=== PATIENT | female | born 1975 | race Caucasian/White ===

== ENCOUNTER → 2022-03-29 10:32 | Outpatient (BNVA) | payer OTHER, SELFPAY | PROVIDERS: PCP Internal Medicine; Visit Provider Internal Medicine | DX: R07.2 Precordial pain (principal); R00.0 Tachycardia, unspecified; E11.8 Type 2 diabetes mellitus with unspecified complications; U09.9 Post COVID-19 condition, unspecified | CPT/HCPCS: 93005 ==

== ENCOUNTER → 2022-05-30 08:21 | Outpatient (REF) | payer OTHER, SELFPAY ==
--- NOTE | 2022-05-30 08:38 | HM_ITS ---
Conclusion: 1. Patient was monitored for total period of 3 days and 2 hours 2. Baseline was normal sinus rhythm with average heart of 99 beats per minute with frequent sinus tachycardia, 45% of time heart rate greater than 100 beats per minute 3. No significant bradycardia or pauses noted 4. Total of 6859 PACs accounting for 1.54% of total beats account for frequent PACs 5. No patient reported events MTDD
--- NOTE | 2022-05-30 08:38 | CA_ITS ---
Transthoracic Echocardiogram Patient (Last, First, Middle): Micaela Velazquez, Gender: Female Date of : 1975 Age: 46 Procedure Date: 05/30/2022 Procedure Type: Transthoracic Echocardiogram Location: OP Height: 157.48 cm Weight: 83.92 kg BSA: 1.85 m2 Heart Rate: bpm BP: 122 / 68 mmHg Technical Marketing Engineer: Referring MD: Juwan Garsia MD Symptoms: I25.10 - Atherosclerotic heart disease of [place] coronary... Study Quality: Fair ECG Rhythm: Sinus Conclusions: - The left ventricular systolic function is normal. The calculated ejection fraction is 66% by biplane method. - No obvious valvular pathology seen on this study. Findings Left Ventricle Normal left ventricular cavity size. There is normal left ventricular wall thickness. The left ventricular systolic function is normal. The calculated ejection fraction is 66% by biplane method. There is no evidence of regional wall motion abnormalities. Diastolic function is normal for age. Right Ventricle Normal right ventricular cavity size and systolic function. Atria Both atria are normal in size. Aortic Valve The aortic valve was not well visualized. There is no aortic valve stenosis. There is no aortic valve regurgitation. Mitral Valve The mitral valve appears normal. There is trace mitral valve regurgitation. There is no mitral valve stenosis. Pulmonic Valve The pulmonic valve is likely normal. There is trace pulmonic valve regurgitation. Tricuspid Valve Normal tricuspid valve structure. There is trace tricuspid valve regurgitation. The pulmonary artery systolic pressure is normal. Great Vessels The aortic annulus, sinuses of valsalva, and asc aorta are normal in size. Venous The inferior vena cava is normal in size and collapses greater than 50% with inspiration. Pericardium/Pleural There is no evidence of pericardial effusion. Prior Study Comparison No prior study available for comparison. Recommendations, Care & Conclusions No obvious valvular pathology seen on this study. Measurements 2D Linear Measurements IVSd: 0.99 0.6-0.9/0.6-1.0 cm LVIDd: 4.11 3.9-5.3/4.2-5.9 cm LVIDd Index: 2.22 2.4-3.2/2.2-3.1 cm/m2 LVIDs: 2.61 2.0-3.6 cm LVPWd: 0.97 0.7-1.1 cm Ao Root: 2.60 2.1-3.5 cm LA Diam: 3.10 2.7-3.8/3.0-4.0 cm LAIDs Index: 1.68 1.5-2.3 cm/m2 LV Mass: 160.62 67-162/88-224 g LV Mass Index: 86.82 43-95/49-115 g/m2 LVOT Diam: 1.90 3.0+(-)1.3 cm 2D Systolic Function EF 4C: 67.20 >55% EF 2C: 64.80 >55% EF BiP: 65.90 >55% Mitral Valve MV Pk E: 0.93 MV PK A: 0.77 MV Decel Time: 184.00 E/A: 1.20 E'Lateral: 12.40 E'Medial: 7.94 E/E' Med: 11.70 E/E' Lat: 7.50 PHT: 54.00 MVA PHT: 4.07 Decel Mcleod: 5.05 Aortic Valve AoV Pk Junaid: 1.38 AoV Mn Junaid: 1.00 AoV VTI: 0.32 AoV Pk Grad: 8.00 Aov Mn Grad: 4.00 ISA Cont.VTI: 1.82 LVOT LVOT Pk Junaid: 0.84 LVOT Mn Junaid: 0.55 LVOT VTI: 0.21 LVOT Pk Grad: 3.00 LVOT Mn Grad: 1.00 LVOT Diam: 1.90 LVOT Area: 2.84 Diastolic Function MV Pk E: 0.93 MV Pk A: 0.77 E/A: 1.20 E'Medial: 7.94 E/E' Med: 11.70 E' Laterial: 12.40 E/E' Lat: 7.50 Right Ventricle TAPSE (mm): 22.00 TVS' Junaid: 11.00 Tricuspid Valve TR Pk Junaid: 1.87 TR Pk Grad: 14.00 RA Press: 3.00 RVSP: 17.00 Great Vessels Aorta Ao Root-2D: 2.60 2.0-3.7 cm Ao Asc: 2.80 2.1-3.4 cm Pulmonary Valve PV Pk Junaid: 0.94 Peak PV Grad: 4.00 Updated in Other Vendor System with Status of Final Juwan Garsia MD electronically signed on 06/01/2022 10:42:51 AM with status of Final
== END ==
LOC: HO.CARD 08:21
PROVIDERS: Visit Provider Internal Medicine
DX: R07.2 Precordial pain (principal); R00.2 Palpitations; R00.0 Tachycardia, unspecified; I25.10 Atherosclerotic heart disease of native coronary artery without angina pectoris
CPT/HCPCS: 93242; 93306

== ENCOUNTER 2023-10-25 17:10 | Emergency (ER) | payer OTHER, SELFPAY ==
--- NOTE | ~2023-10-25 | XR_ITS ---
EXAMINATION: XR CHEST CLINICAL INFORMATION: Chest pain COMPARISON: None available. TECHNIQUE: 2 views of the chest were obtained. FINDINGS: No significant abnormality is noted involving the heart, lungs, mediastinum, bony thorax or soft tissues. XR/XR chest 2V IMPRESSION: Unremarkable examination.
--- NOTE | ~2023-10-25 | CT_ITS ---
EXAMINATION: CT ANGIOGRAM OF THE CHEST WITH AND WITHOUT CONTRAST (CT PULMONARY ANGIOGRAM FOR PE) CLINICAL INFORMATION: Reason for Exam cp elevated d dimer 453 COMPARISON: None available. TECHNIQUE: Prior to contrast administration, noncontrast localization images were obtained. Subsequently, multidetector volumetric imaging was performed from the thoracic inlet to below the diaphragms following the administration of 80 mL Omnipaque 350 intravenous contrast. No contrast reaction reported Sagittal, coronal, and MIP oblique sagittal reformatted images were obtained on the CT workstation, uploaded to PACS, and reviewed. This CT examination was performed using dose optimization techniques as appropriate, variously including the following: *Automated exposure control *Adjustment of mA and/or kV according to patient size (this includes techniques or standardized protocols for targeted exams where dose is matched to indication/reason for exam; i.e. extremities or head) *Use of iterative reconstruction technique Total exam dose-length product 259 mGy-cm FINDINGS: QUALITY OF STUDY/CONTRAST BOLUS: Satisfactory. PULMONARY ARTERIES: No pulmonary emboli. THORACIC AORTA: No aneurysm. LUNG: The lungs are well-expanded and clear. There is a 4 mm calcification left lower lobe. PLEURA: No pleural effusion or pneumothorax. MEDIASTINUM: Normal heart size. No pericardial effusion. No hilar or mediastinal lymphadenopathy. No evidence of septal bowing or right heart strain. CORONARY ARTERY CALCIFICATION: None visualized on this study. CHEST WALL/AXILLA: No axillary or internal mammary lymphadenopathy. OSSEOUS STRUCTURES: No acute or suspicious osseous abnormality. UPPER ABDOMEN: Unremarkable. No reflux of contrast into the hepatic veins to suggest elevated right heart pressures. CT/CT angio chest PE protocol IMPRESSION: No evidence of PE. No evidence of aortic aneurysm or dissection. VTE: Negative
--- NOTE | 2023-10-25 17:13 | ECG_ITS ---
Test Reason : CHEST PAIN Blood Pressure : / mmHG Vent. Rate : 079 BPM Atrial Rate : 079 BPM P-R Int : 104 ms QRS Dur : 066 ms QT Int : 356 ms P-R-T Axes : 059 026 042 degrees QTc Int : 408 ms Sinus rhythm with short CA with Premature atrial complexes Otherwise normal ECG No previous ECGs available Referred By: Keyanna Henderson Electronically Signed By:MARIA D MOLINA MD
[2023-10-25 17:21] VITALS: BP 127/72; PULSE 81; RESP 16; TEMP 36.8; O2SAT 98; BMI 30.9
--- NOTE | 2023-10-25 17:33 | MHC.EDTECH ---
Patient ekg taken and was read by Provider ,blood drawn and rsv/covid swab collected and sent to lab.
[2023-10-25 17:34] LABS: MANUAL DIFF FLAG NO
--- NOTE | 2023-10-25 17:39 | ED_ITS ---
HPI - Chest Pain General Chief Complaint: Chest Pain Stated Complaint: Chest pain Time Seen by Provider: 10/25/23 20:52 Source: patient Mode of arrival: ambulatory Limitations: no limitations History of Present Illness HPI narrative: Patient 47 years old with history of palpitations, diabetes frequent chest pain since COVID 09/23 comes here for 3 days of chest pain with left arm pain shortness of breath on exertion, feel like left arm pain is like having tourniquet on arm chest pain is tight stabbing pain and also having left jaw pain Related Data Home Medications Medication Instructions Recorded Confirmed cyclobenzaprine 10 mg tablet 10 mg PO TID PRN muscle spasm 03/29/22 07/03/22 metformin 750 mg tablet,extended 750 mg PO BID 03/29/22 07/03/22 release 24 hr omeprazole 40 mg capsule,delayed 40 mg PO DAILY 03/29/22 07/03/22 release pravastatin 10 mg tablet 10 mg PO DAILY 03/29/22 07/03/22 trazodone 50 mg tablet 50 mg PO BEDTIME 03/29/22 07/03/22 Allergies Allergy/AdvReac Type Severity Reaction Status Date / Time No Known Allergies Allergy Verified 07/03/22 14:31 Review of Systems 2 Review of Systems: Yes all other systems are reviewed and are negative PMFSH Past Medical History Medical History Type 2 diabetes mellitus with unspecified complications Surgical History History of section (~2008) History of bilateral breast reduction surgery (~2004) Family History Family History Father Myocardial infarction Diabetes Mother Diabetes Social History Social History Patient Tobacco Use Status: Never used Tobacco Smoked in Last 30 Days: No Use of substances other than those prescribed or required for medical reasons: No Advance Directives: No Advance Directives Information Provided: No Patient : No Physical Exam 2 Vital Signs: Vital Signs: Last Vital Signs Temp 98.3 F 10/25/23 17:21 Pulse 78 10/25/23 21:15 Resp 20 10/25/23 21:15 BP 126/93 H 10/25/23 21:15 Pulse Ox 100 10/25/23 21:15 O2 Del Method Room Air 10/25/23 21:15 BMI result Body Mass Index 30.9 Appearance: Alert. Oriented X3. No acute distress. ENT: Pharynx normal. Oral Mucosa moist Neck: Normal inspection. Neck supple. CVS: Normal heart rate and rhythm. Pulses normal. Respiratory: No respiratory distress. Equal air entry bilateral, no wheezing/rales/rhonchi Abdomen: Soft and nontender. Bowel sounds are present, no mass palpable, no CVA tenderness Skin: Skin warm and dry. Normal skin color. Normal skin turgor. Extremities: No lower extremity edema. No calf tenderness Neuro: Oriented X 3. No motor deficit. No sensory deficit.No cerebellar signs , cranial nerves II-XII intact Course Course Course Narrative: RME performed by Keyanna Hnederson PA-C. Patient is a 47 year old assigned female at presenting to the emergency department with left sided chest pain. Labs, imaging, and swabs ordered. Patient placed back in the waiting room pending room availability and results. Medications Administered Discontinued Medications Generic Name Dose Route Start Last Admin Trade Name Freq PRN Reason Stop Dose Admin Iohexol 65 ml 10/25/23 22:30 10/25/23 22:33 Iohexol 350 Mg/Ml 100 Ml Infus..Btl IV 10/25/23 22:31 65 ml ONCE ONE Administration Medical Decision Making Medical Decision Making [facility] Narrative: Patient history of palpitation with atypical chest pain for last 3 days with left arm pain D-dimer was slightly positive 2 sets of cardiac enzymes negative CTA chest was negative for PE patient's pain is likely musculoskeletal atypical chest pain noncardiac origin discharge patient home advised to follow with PCP Differential Diagnosis Differential Diagnoses: The differential diagnosis associated with the presentation includes ACS/chest wall pain/PE Admission/Observation Consideration of admission/observation: Escalation of care including admission/observation considered Lab Data [facility] Lab Attestation statement: I reviewed the patient's lab results. 10/25/23 17:29 10/25/23 17:30 Labs: Lab Results 10/25/23 10/25/23 10/25/23 Range/Units 17:29 17:30 21:11 WBC 10.4 (4.8-10.8) X10*3/uL RBC 3.97 L (4.20-5.50) X10*6/uL Hgb 12.1 (12.0-16.0) g/dl Hct 35.3 L (37.0-47.0) % MCV 88.9 (80.0-98.0) fL MCH 30.5 (27.0-33.0) pg MCHC 34.3 (31.0-35.0) g/dl RDW 12.4 (11.0-16.0) % Plt Count 293 (160-400) X10*3/uL MPV 9.5 (9.4-12.3) fL Immature Gran % (Auto) 0.3 (0.0-0.4) % Neut % (Auto) 61.7 (45-73) % Lymph % (Auto) 33.4 (20-40) % [place] % (Auto) 4.3 (2-11) % Eos % (Auto) 0.2 (0-4) % Baso % (Auto) 0.1 (0-2) % Lymph # (Auto) 3.5 (1.2-4.9) X10*3/uL [place] # (Auto) 0.4 (0.1-1.2) X10*3/uL Eos # (Auto) 0.0 (0.0-0.4) X10*3/uL Baso # (Auto) 0.0 (0.0-0.2) X10*3/uL Abs Immat Gran (auto) 0.03 (0.00-0.03) X10*3/uL Absolute Neuts (auto) 6.4 (2.0-8.3) x10*3/uL Absolute Nucleated RBC 0.000 (0.0-0.012) X10*3/uL Nucleated RBC % (auto) 0.0 (0.0-0.2) /100WBC D-Dimer High Sensitivty 453 NG/ML Sodium 138 (135-145) mmol/L Potassium 4.1 (3.3-5.1) mmol/L Chloride 106 (96-108) mmol/L Carbon Dioxide 26 (22-29) mmol/L Anion Gap 10 L (12-20) BUN 17 H (9-16) mg/dL Creatinine 0.81 (0.5-1.4) mg/dL Estim Creat Clear Calc 80.8 Estimated GFR > 60 Random Glucose 171 H (60-115) mg/dL Calcium 9.4 (8.4-10.2) mg/dL Total Bilirubin 0.3 (0.0-1.0) mg/dL AST 13 (5-31) U/L ALT 10 (0-31) U/L Alkaline Phosphatase 49 (39-117) U/L Troponin I High Sens < 2.7 < 2.7 (<3.5-17.0) ng/L Total Protein 7.5 (6.5-8.0) g/dL Albumin 4.3 (3.5-5.0) g/dL Influenza Type A (PCR) NEGATIVE (Negative) Influenza Type B (PCR) NEGATIVE (Negative) RSV RNA Qual (PCR) NEGATIVE (Negative) SARS-CoV-2 RNA (RT-PCR) NEGATIVE (Negative) Independent Interpretation I performed an independent interpretation of an: EKG and CT Scan Interpretation: Normal sinus rhythm heart rate 79 beats per minute PACs no acute ST-T did no acute ischemia Radiology Impression Discussion of test interpretation with radiology: I have reviewed the radiologist's reading. Scores Heart Score History: -0- slightly suspicious ECG: -0- normal Age: -0- < or = 45 Risk factory: -0- no risk factors known Troponin: -0- < or = normal limit Score: 0 Risk: 1.7% Discharge Plan Discharge Clinical Impression: Atypical chest pain Patient Disposition: Home, Self-Care Instructions: Chest Pain (ED) Additional Instructions: Your chest pain likely musculoskeletal Follow-up with your PCP Tylenol/Motrin for pain as needed Prescriptions: No Action metformin 750 mg tablet extended release 24 hr 750 mg PO BID cyclobenzaprine 10 mg tablet 10 mg PO TID PRN (Reason: muscle spasm) omeprazole 40 mg capsule,delayed release(DR/EC) 40 mg PO DAILY trazodone 50 mg tablet 50 mg PO BEDTIME pravastatin 10 mg tablet 10 mg PO DAILY
[2023-10-25 17:49] LABS: Alanine Aminotransferase 10 U/L (0-31); Albumin Level 4.3 g/dL (3.5-5.0); Alkaline Phosphatase 49 U/L (39-117); Anion Gap 10 (12-20); Aspartate Amino Transferase 13 U/L (5-31); Bilirubin Total 0.3 mg/dL (0.0-1.0); Blood Urea Nitrogen 17 mg/dL (9-16); Calcium 9.4 mg/dL (8.4-10.2); Carbon Dioxide 26 mmol/L (22-29); Chloride 106 mmol/L (96-108); Creatinine Clr Calc Pharmacy 80.8; Estimated Glomerular Filt Rate > 60; Glucose Random 171 mg/dL (60-115); Potassium 4.1 mmol/L (3.3-5.1); Sodium 138 mmol/L (135-145); Total Protein 7.5 g/dL (6.5-8.0)
[2023-10-25 17:55] LABS: Basophils Percent Auto 0.1 % (0-2); Eosinophils Percent Auto 0.2 % (0-4); Hematocrit 35.3 % (37.0-47.0); Hemoglobin 12.1 g/dl (12.0-16.0); Imm Gran Abs Auto 0.03 X10*3/uL (0.00-0.03); Imm Gran Pct Auto 0.3 % (0.0-0.4); Lymphocytes Absolute Auto 3.5 X10*3/uL (1.2-4.9); Lymphocytes Percent Auto 33.4 % (20-40); Mean Corpuscular HGB Conc 34.3 g/dl (31.0-35.0); Mean Corpuscular Hemoglobin 30.5 pg (27.0-33.0); Mean Corpuscular Volume 88.9 fL (80.0-98.0); Mean Platelet Volume 9.5 fL (9.4-12.3); Monocytes Absolute Auto 0.4 X10*3/uL (0.1-1.2); Monocytes Percent Auto 4.3 % (2-11); Neutrophils Absolute Auto 6.4 x10*3/uL (2.0-8.3); Neutrophils Percent Auto 61.7 % (45-73); Platelet Count 293 X10*3/uL (160-400); Red Blood Count 3.97 X10*6/uL (4.20-5.50); Red Cell Distribution Width 12.4 % (11.0-16.0); White Blood Count 10.4 X10*3/uL (4.8-10.8)
[2023-10-25 17:56] LABS: Troponin-I High Sensitivity < 2.7 ng/L (<3.5-17.0)
[2023-10-25 18:14] LABS: Influenza A PCR NEGATIVE (Negative); Influenza B PCR NEGATIVE (Negative); Resp Syncy Virus RNA Qual PCR NEGATIVE (Negative); SARS COV2 PCR INHOUSE NEGATIVE (Negative)
[2023-10-25 21:15] VITALS: BP 126/93; PULSE 78; RESP 20; O2SAT 100
[2023-10-25 21:47] LABS: D Dimer High Sensitivity 453 NG/ML
[2023-10-25 21:59] LABS: Troponin-I High Sensitivity < 2.7 ng/L (<3.5-17.0)
[2023-10-25] MEDS: iohexoL 350 MG/ML 100 ML INFUS..BTL 65 ML IV (22:33)
[2023-10-25 23:53] VITALS: BP 120/78; PULSE 83; RESP 16; O2SAT 98
== END 2023-10-25 23:55 | disposition home or self-care (01) ==
PROVIDERS: Physician Assistant Medical; Emergency Provider Internal Medicine; PCP Internal Medicine
DX: R07.89 Other chest pain (principal); M79.602 Pain in left arm; Z20.822 Contact with and (suspected) exposure to COVID-19; Z20.828 Contact with and (suspected) exposure to other viral communicable diseases; Z79.899 Other long term (current) drug therapy
CPT/HCPCS: 0241U; 36415; 71046; 71275; 80053; 84484; 85025; 85379; 93005; 99284; 99285; Q9967

== ENCOUNTER → 2023-10-25 17:13 | Outpatient (BNV) | payer OTHER, SELFPAY | PROVIDERS: Emergency Provider Internal Medicine; PCP Internal Medicine; Visit Provider Internal Medicine Cardiovascular Disease | DX: R07.9 Chest pain, unspecified (principal) | CPT/HCPCS: 93010 ==

== ENCOUNTER 2024-03-18 08:06 | Outpatient (AMB) | payer OTHER, SELFPAY ==
--- NOTE | 2024-03-18 08:16 | MHC.OFFVIS ---
Vital Signs 03/18/24 08:20 Height 5 ft 2 in Weight 166 lb BMI 30.4 BP 131/74 Blood Pressure Location Lt brachial Position Sitting Pulse 76 Intake Visit Reasons: Constipation/IBS Intake Note: Patient new consult for Chronic constipation and IBS. Patient cc: chronic constipation, abdominal pain with bloating, acid reflex with burning sensation. Denies any other GI issues. Social Worker Assistant Required: No Accompanied by: Self / Same As Patient Allergies No Known Allergies Allergy (Verified 03/18/24 08:14) Medication List - Last Reconciled 03/18/24 by Jayne Crowe PA-C metformin ER 500 mg PO DAILY omeprazole 40 mg PO DAILY pravastatin 10 mg PO DAILY trazodone 50 mg PO BEDTIME HPI Comments Details: 48-year-old DM-female referred with chronic constipation/IBS-since covid in 2019- diarrhea/then resolved-2020 saw at [place]- had a colonoscopy- no issues-sent to [facility] [place]- due to no avail appt until June- She had began metformin at that time- 10/25-saw wt loss myriam valle- 190 down to 154- discont. in july BS improved-was happy with her weight loss She is now constipated prunlax every other day sometimes gives her diarrhea Appetite is good No other GI or general complaints No nausea, vomiting, hematemesis, hematochezia fever or chills [facility] Medical History (Updated 03/18/24 @ 08:59 by Jayne Crowe PA-C) Type 2 diabetes mellitus with unspecified complications Surgical History History of section (~2008) History of bilateral breast reduction surgery (~2004) Family History Father Myocardial infarction Diabetes Mother Diabetes Social History Household Members: Family Alcohol intake: never Patient Tobacco Use Status: Never used Tobacco Review of Systems Const All systems reviewed & are unremarkable except as noted in HPI and below Card Denies chest pain and Denies dyspnea Resp Denies dyspnea GI Reports bloating and Reports constipation Physical Exam Vital Signs: Last Vital Signs Pulse 76 03/18/24 08:20 BP 131/74 03/18/24 08:20 BMI result Body Mass Index 30.4 Alert and oriented no acute distress-somewhat anxious, pleasant Anicteric Cardiovascular, regular rate rhythm no murmurs no Lungs, clear bilaterally no wheezes rales or rubs Abdomen, positive bowel sounds soft nontender Extremities, without edema clubbing site Skin without rash Psych Speech and movement: Pressured speech present Assessment & Plan Assessment & Plan (1) Chronic constipation: Code(s): K59.09 - Other constipation Category: Medical Plan: metamucil hfd (2) IBS (irritable bowel syndrome): Comment: Anxious, needs reassurance- Code(s): K58.9 - Irritable bowel syndrome without diarrhea Category: Medical Plan: consistent bowel Plan Bowel regimen HFD get colon report- Orders: Orders Complete Blood Count Auto Diff Today K58.9 - Irritable bowel syndrome without diarrhea, K59.09 - Other constipation Thyroid Stimulating Hormone Today R19.8 - Other specified symptoms and signs involving the digestive system and abdomen Comprehensive Met. Panel Today K58.9 - Irritable bowel syndrome without diarrhea Hemoglobin A1c Today K58.9 - Irritable bowel syndrome without diarrhea, K59.09 - Other constipation Medications: New psyllium husk (Metamucil) mix into at least 8 oz of water or juice before administering 1 tbsp PO DAILY 30 days 660 grams 5RF Patient Instructions: Pleasantly anxious 48-year-old female diabetic, CIC irritable bowel She has been seen previously by spinning frame tender diagnosed with IBS Reviewed diet, Maintain high-fiber diet Trial with Metamucil daily Will use laxative p.r.n. if Baseline labs CBC, CMP and a TSH Will see back for progress Encouraged to call with questions or concerns Appreciate the opportunity assist in the care the patient Coding Level of Care Code New Pt Level 4 (40610) Diagnoses Chronic constipation K59.09 IBS (irritable bowel syndrome) K58.9 Time Spent (min) 30
[2024-03-18 08:20] VITALS: BP 131/74; PULSE 76; BMI 30.4
== END 2024-03-18 08:51 | disposition home or self-care (01) ==
PROVIDERS: PCP Internal Medicine; Visit Provider Physician Assistant
DX: K59.09 Other constipation (principal); K58.9 Irritable bowel syndrome, unspecified
CPT/HCPCS: 99204

== ENCOUNTER → 2024-03-18 08:06 | Outpatient (BNVA) | payer OTHER, SELFPAY | PROVIDERS: PCP Internal Medicine; Visit Provider Physician Assistant ==

== ENCOUNTER 2024-11-30 12:35 | Outpatient (REF) | payer OTHER, SELFPAY ==
[2024-11-30 12:51] LABS: MANUAL DIFF FLAG NO
[2024-11-30 13:26] LABS: Basophils Percent Auto 0.2 % (0-2); Eosinophils Percent Auto 0.4 % (0-4); Hematocrit 34.7 % (37.0-47.0); Hemoglobin 11.9 g/dl (12.0-16.0); Imm Gran Abs Auto 0.02 X10*3/uL (0.00-0.03); Imm Gran Pct Auto 0.2 % (0.0-0.4); Lymphocytes Absolute Auto 3.1 X10*3/uL (1.2-4.9); Lymphocytes Percent Auto 37.4 % (20-40); Mean Corpuscular HGB Conc 34.3 g/dl (31.0-35.0); Mean Corpuscular Hemoglobin 30.3 pg (27.0-33.0); Mean Corpuscular Volume 88.3 fL (80.0-98.0); Mean Platelet Volume 9.8 fL (9.4-12.3); Monocytes Absolute Auto 0.4 X10*3/uL (0.1-1.2); Monocytes Percent Auto 4.4 % (2-11); Neutrophils Absolute Auto 4.7 x10*3/uL (2.0-8.3); Neutrophils Percent Auto 57.4 % (45-73); Platelet Count 288 X10*3/uL (160-400); Red Blood Count 3.93 X10*6/uL (4.20-5.50); Red Cell Distribution Width 12.1 % (11.0-16.0); White Blood Count 8.2 X10*3/uL (4.8-10.8)
[2024-11-30 13:29] LABS: Estimated Average Glucose 148 mg/dL; Hemoglobin A1C 159.4055 umol/L; Hemoglobin A1c % 6.8 % (<6.0); Total Hemoglobin (HGBA1C) 3111.7547 umol/L
[2024-11-30 13:54] LABS: Alanine Aminotransferase 15 U/L (0-31); Albumin Level 4.1 g/dL (3.5-5.0); Alkaline Phosphatase 60 U/L (39-117); Anion Gap 11 (12-20); Aspartate Amino Transferase 18 U/L (5-31); Bilirubin Total 0.3 mg/dL (0.0-1.0); Blood Urea Nitrogen 17 mg/dL (9-16); Calcium 9.2 mg/dL (8.4-10.2); Carbon Dioxide 27 mmol/L (22-29); Chloride 104 mmol/L (96-108); Estimated Glomerular Filt Rate > 60; Glucose Random 136 mg/dL (60-115); Potassium 3.9 mmol/L (3.3-5.1); Sodium 138 mmol/L (135-145); Total Protein 7.7 g/dL (6.5-8.0)
[2024-11-30 14:14] LABS: Thyroid Stimulating Hormone 0.85 uIU/mL (0.32-4.0)
--- OUTSIDE RECORDS SUMMARY | 2024-11-30 17:17 | XMS_ITS ---
Author Organization [facility] Address [address] [place] [address] Care Team Providers Care Timber Inspector Name Role Phone KRISTIN BARRERA Unavailable [phone] ALLERGIES No Known Allergies REASON FOR VISIT Pt seen in office for wt mgt f/u visit, Pt declined SECA. MEDICATIONS Medication SIG (Take, Route, Frequency, Duration) Notes Start Date End Date Status Pravastatin Sodium 10 MG 1 tablet Orally Once a day Active metFORMIN HCl 500 MG 3 tablet with a isra l Orally Once a day Active Omeprazole 20 MG 1 capsule 30 minutes before morning meal Orally Once a day Active traZODone HCl 50 MG 1 tablet at bedtime as needed Orally Once a day Active Mounjaro 2.5 MG/0.5ML inject 2.5mg weekl y subcutaneously Please fill prescription through the [employer] co-pay card program and not through insurance Prior authorization NOTrequired Diagnosis e11.9 Subcutaneous weekly for 30 days Active MiraLax 17 GM 1 packet mixed with 8 ounces of fluid Orally Once a day for 30 day(s) Active Mounjaro 5 MG/0.5ML 5mg Subcutaneous wee kly for 30 days 01/07/2024 Active SOCIAL HISTORY Tobacco Use: Social History Observation Description Date Details (start date - stop date) Never Smoker NA - NA Sex Assigned At : Social History Observation Description Sex Assigned At Unknown Tobacco Use/Smoking Question Answer Notes Are you a nonsmoker PROBLEMS Problem Type ICD Code Onset Dates Problem Status W/U Status Risk SNOMED Code Notes Problem BMI 32.0-32.9,ad ult (Z68.32) Active confirmed [id number] VITAL SIGNS Heart Rate 82 /min 01/07/2024 Blood pressure systolic 124 mm Hg 01/07/20 24 Blood pressure diastolic 76 mm Hg 024 Weight 170 lbs 01/07/2024 BMI 32.12 kg/m2 01/07/2024 Height 61 in 01/07/2024 Oximetry 99 % 01/07/2024 Encounters Encounter Location Date Provider Diagnosis [facility] [address] [facility] [address] [facility] [address] [place] [address] 01/07/2024 KRISTIN BARRERA Type 2 diabetes stewart itus without complication, without long-term current use of insulin E11.9 ; Obesity (BMI 30-39.9) E66.9 ; Pure hypercholesterolemia, unspecified E78.00 ; Gastroesophageal reflux disease without esophagitis K21.9 and BMI 32.0-32.9,adult Z68.32 ASSESSMENTS Encounter Date Diagnosis Assessment Notes Treatment Notes Treatment Clinical Notes Section Notes 01/07/2024 Type 2 diabetes mellitus without complication, without long-term current use of insulin (ICD-10 - E11.9) #Weight Management 01/07/2024 Patient is back after a hiatus to reestablish care We will start the patient on 5 mg of Mounjaro and likely will keep her on this for maintenance as she is approached target goal weight Her glycemic control seems much better on dual incretin as well She will continue with metformin 500 daily via her PCP Labs reviewed Discussed importance of protein consumption for muscle maintenance, strength and resistance training as well as probiotics, B12 complex biotin , iron and other nutrients, To also help avoid telogen effluvium while on weight loss medications such as GLP-1 Total time spent today was 30 minutes of which greater than 50% was spent on coordinating and counseling Patient has been found to be obese with a BMI of (32). Patient has class (1) obesity. We are a board certified obesity and weight management practice Patient has trialed behavioral modification, dietary restrictions and exercise for a minimum of 6 months The most recent [place] [employer] of clinical endocrinologists and [place] [employer] guidelines recommend patients who have overweight BMI or obesity BMI, who also have metabolic syndrome, prediabetes, HLD, and other comorbidities or at risk of developing type 2 diabetes should aim for a weight loss goal of at least 10% of the baseline body weight Patient counseled regarding effects of GLP/GIP-1 agonists, and other FDA approved wgt loss meds with regards to a multifactorial approach of weight loss as mentioned above and not solely appetite suppression. We have discussed the mechanism of GLP-1's/GIP, dual incretins, appetitite suppressants I think this would be fantastic option for her given her metabolic workup and body composition We have discussed the risks and benefits and side effects including/and not limited to Sarcopenia, intestinal obstruction, constipation, nausea, lethargy, headache Discussed importance of protein consumption for muscle maintenance as well as strength and resistance training ,probiotics, B12 complex biotin , iron and other nutrients, To help avoid telogen effluvium We have discussed the lifelong requirement of nutritional supplementation And adherence to an exercise regimen as well as importance of follow-up The patient understands and agrees There is no history of medullary thyroid cancer or multiple endocrine neoplasia There is also no history of cardiovascular disease, hypertension, palpitations, or arrhythmias In the setting of potential stimulant/amphetam ine use such as phentermine We have also discussed risks and benefits, and the use of compounded medications to help offset the national shortages as well as financial implications vs trade name drugs Patient was reassured and welcomed to the practice. We discussed that we stress a hollistic medical approach with emphasis on lifestyle modification. Patient was informed that a healthy lifestyle with exercise and good eating habits can help reduce his risk of medical complications. He is explained that obesity increases his risk of diabetes, cardiovascular disease, or organ damage. We spent a lot of time discussing the relationship between food, exercise, sleep, mental health and obesity. Patient was counseled on the importance EATING local, organic food when possible. Patient was educated on clean 15 and dirty dozen. I provided information about reading books called The Food Rules by Johnnie Camacho and Eat Fat Get Lean by Dr Jorge Chaudhry. Self education is important in the journey for weight management. Patient was offered diagnostic testing. We want to measure visceral adiposity, advanced body composition, adverse lipids, fatty acid balance, risk for heart disease and atherosclerosis, markers of inflammation and genetic susceptibility. Patient was counseled on weight management and was advised to lose weight using A. Meal Replacement Products We discussed the lifelong requirement of nutritional supplementation and adherence to an exercise regimen as well as importance of dietary follow-up Patient was educated on the replacement products called optifast. This is a good way of taking fixed amount of calories. It has been shown in studies to be ineffective weight management tool. We also recommend maintaining adequate protein intake and muscle composition, 1.5mg/kg This however has to be coupled with lifestyle intervention as well as laboratory data and EKG monitoring. It is impossible to know how a person will tolerate complete meal replacement. The side effects of meal replacement and weight loss could include syncopal attacks, dizziness, gallstones, potential cholecystectomy, possible heart attack and even . The benefits of meal replacement would be potential weight loss but no guarantees can be made. Meal replacement products are not covered by insurance. Once the patient has bought these products we cannot return them B. Lifestyle management which includes several strategies as below 1. Eat a low carbohydrate good fat good protein diet. Eliminate refined carbohydrates from the diet. Continue blood sugar and sugared beverages. Eat local organic when possible. Cook your own meals. Read food labels. None about healthy snacks. Portion control and food with low glycemic index 2. Exercise regularly. Try to get at least 6000 steps a day. Use a predominant to track activity level. Consider using apps like AmpIdea, SameGrainpal, lose it, stick as needed for self-monitoring and weight management. Consider group exercises. Consider hiring a household personal assistant. Regular exercise is pickens to sustainable health and prevents as a buffer against weight regain 3. Sleep is most important for healing. Tried to sleep at least 8 hours a night. A good quality sleep needs a sleep ritual with ideal room temperature of around 68. It might help to take a shower and have no electronics in the room and sleep in a very dark room without artificial light. Start her sleep routine and get up early in the morning and go to bed on time 4. Make a social connection. Surround yourself with positive people with positive energy. Connect with friends and family. 5. Get into the habit of meditating and mindfulness while doing everything. 6. Go outside and connect with nature. C. Prescription medications Patient was educated on the use of prescription medications for medical weight loss. This is a growing list and includes phentermine, Topamax,Qsymia, contrave, belviq and saxenda. All prescription medications could have side effects including but not limited to kidney stones, seizure disorder cardiac arrhythmias heart attack pancreatitis etc. etc.. Patient was encouraged to read the prescription insert and have coaching with their pharmacist and make an informed decision about taking medication and know that these medications are being prescribed with good intentions and we do not know how a patient would react to her medication. Sudden medications are FDA approved for weight loss and there is also off label use depending on patient's inability to afford medications in an attempt to lose weight D. Behavioral counseling was done to establish a relationship between food and an mood. Patient was provided information about local counseling and psychiatry and Dr Bowers at [facility]. We would like to cover regular topics and build on low glycemic eating exercise mindful eating, using yoga and meditation along with deep breathing and connecting with friends and family. E. MASS PAT reviewed, Patient's current medications were reviewed and opinion was given on medication that can cause weight gain and can be substituted F. Patient was assessed for risk with obesity including and not limiting to atherosclerosis heart disease stroke kidney disease, restrictive lung disease, irritable bowel syndrome and overall mortality. Risk of developing prediabetes diabetes and metabolic syndrome was discussed G. Therapeutic plan: We have decided to make therapeutic plan which would include choosing wisely on calories restricting portion getting active, tracking weight, getting good quality sleep and working on time management H. Patient will follow up in (4) weeks for weight management Of note, some information is being carried forward from prior records for informational purposes only and is being cited so that efficiency, safety and quality of the patient's care is not compromised This note was prepared using voice recognition software and direct typing Please excuse inadvertent roguer or typing errors, or uncorrected word substitutions Although every attempt has been made by the provider to proofread this document, occasional misspellings and typographical errors may still be present Due to the previous pandemic, and the use of personal protective equipment (PPE) This may decrease voice recognition accuracy Inadvertent roguer errors may occur 01/07/2024 Obesity (BMI 30-39.9) (ICD-10 - E66.9) #Weight Management 01/07/2024 Patient is back after a hiatus to reestablish care We will start the patient on 5 mg of Mounjaro and likely will keep her on this for maintenance as she is approached target goal weight Her glycemic control seems much better on dual incretin as well She will continue with metformin 500 daily via her PCP Labs reviewed Discussed importance of protein consumption for muscle maintenance, strength and resistance training as well as probiotics, B12 complex biotin , iron and other nutrients, To also help avoid telogen effluvium while on weight loss medications such as GLP-1 Total time spent today was 30 minutes of which greater than 50% was spent on coordinating and counseling Patient has been found to be obese with a BMI of (32). Patient has class (1) obesity. We are a board certified obesity and weight management practice Patient has trialed behavioral modification, dietary restrictions and exercise for a minimum of 6 months The most recent [place] [employer] of clinical endocrinologists and [place] [employer]in[employer] guidelines recommend patients who have overweight BMI or obesity BMI, who also have metabolic syndrome, prediabetes, HLD, and other comorbidities or at risk of developing type 2 diabetes should aim for a weight loss goal of at least 10% of the baseline body weight Patient counseled regarding effects of GLP/GIP-1 agonists, and other FDA approved wgt loss meds with regards to a multifactorial approach of weight loss as mentioned above and not solely appetite suppression. We have discussed the mechanism of GLP-1's/GIP, dual incretins, appetitite suppressants I think this would be fantastic option for her given her metabolic workup and body composition We have discussed the risks and benefits and side effects including/and not limited to Sarcopenia, intestinal obstruction, constipation, nausea, lethargy, headache Discussed importance of protein consumption for muscle maintenance as well as strength and resistance training ,probiotics, B12 complex biotin , iron and other nutrients, To help avoid telogen effluvium We have discussed the lifelong requirement of nutritional supplementation And adherence to an exercise regimen as well as importance of follow-up The patient understands and agrees There is no history of medullary thyroid cancer or multiple endocrine neoplasia There is also no history of cardiovascular disease, hypertension, palpitations, or arrhythmias In the setting of potential stimulant/amphetam ine use such as phentermine We have also discussed risks and benefits, and the use of compounded medications to help offset the national shortages as well as financial implications vs trade name drugs Patient was reassured and welcomed to the practice. We discussed that we stress a hollistic medical approach with emphasis on lifestyle modification. Patient was informed that a healthy lifestyle with exercise and good eating habits can help reduce his risk of medical complications. He is explained that obesity increases his risk of diabetes, cardiovascular disease, or organ damage. We spent a lot of time discussing the relationship between food, exercise, sleep, mental health and obesity. Patient was counseled on the importance EATING local, organic food when possible. Patient was educated on clean 15 and dirty dozen. I provided information about reading books called The Food Rules by Johnnie Camacho and Eat Fat Get Lean by Dr Jorge Chaudhry. Self education is important in the journey for weight management. Patient was offered diagnostic testing. We want to measure visceral adiposity, advanced body composition, adverse lipids, fatty acid balance, risk for heart disease and atherosclerosis, markers of inflammation and genetic susceptibility. Patient was counseled on weight management and was advised to lose weight using A. Meal Replacement Products We discussed the lifelong requirement of nutritional supplementation and adherence to an exercise regimen as well as importance of dietary follow-up Patient was educated on the replacement products called optifast. This is a good way of taking fixed amount of calories. It has been shown in studies to be ineffective weight management tool. We also recommend maintaining adequate protein intake and muscle composition, 1.5mg/kg This however has to be coupled with lifestyle intervention as well as laboratory data and EKG monitoring. It is impossible to know how a person will tolerate complete meal replacement. The side effects of meal replacement and weight loss could include syncopal attacks, dizziness, gallstones, potential cholecystectomy, possible heart attack and even . The benefits of meal replacement would be potential weight loss but no guarantees can be made. Meal replacement products are not covered by insurance. Once the patient has bought these products we cannot return them B. Lifestyle management which includes several strategies as below 1. Eat a low carbohydrate good fat good protein diet. Eliminate refined carbohydrates from the diet. Continue blood sugar and sugared beverages. Eat local organic when possible. Cook your own meals. Read food labels. None about healthy snacks. Portion control and food with low glycemic index 2. Exercise regularly. Try to get at least 6000 steps a day. Use a predominant to track activity level. Consider using apps like AmpIdea, myfitnesspal, lose it, stick as needed for self-monitoring and weight management. Consider group exercises. Consider hiring a household personal assistant. Regular exercise is pickens to sustainable health and prevents as a buffer against weight regain 3. Sleep is most important for healing. Tried to sleep at least 8 hours a night. A good quality sleep needs a sleep ritual with ideal room temperature of around 68. It might help to take a shower and have no electronics in the room and sleep in a very dark room without artificial light. Start her sleep routine and get up early in the morning and go to bed on time 4. Make a social connection. Surround yourself with positive people with positive energy. Connect with friends and family. 5. Get into the habit of meditating and mindfulness while doing everything. 6. Go outside and connect with nature. C. Prescription medications Patient was educated on the use of prescription medications for medical weight loss. This is a growing list and includes phentermine, Topamax,Qsymia, contrave, belviq and saxenda. All prescription medications could have side effects including but not limited to kidney stones, seizure disorder cardiac arrhythmias heart attack pancreatitis etc. etc.. Patient was encouraged to read the prescription insert and have coaching with their pharmacist and make an informed decision about taking medication and know that these medications are being prescribed with good intentions and we do not know how a patient would react to her medication. Sudden medications are FDA approved for weight loss and there is also off label use depending on patient's inability to afford medications in an attempt to lose weight D. Behavioral counseling was done to establish a relationship between food and an mood. Patient was provided information about local counseling and psychiatry and Dr Bowers at [facility]. We would like to cover regular topics and build on low glycemic eating exercise mindful eating, using yoga and meditation along with deep breathing and connecting with friends and family. E. MASS PAT reviewed, Patient's current medications were reviewed and opinion was given on medication that can cause weight gain and can be substituted F. Patient was assessed for risk with obesity including and not limiting to atherosclerosis heart disease stroke kidney disease, restrictive lung disease, irritable bowel syndrome and overall mortality. Risk of developing prediabetes diabetes and metabolic syndrome was discussed G. Therapeutic plan: We have decided to make therapeutic plan which would include choosing wisely on calories restricting portion getting active, tracking weight, getting good quality sleep and working on time management H. Patient will follow up in (4) weeks for weight management Of note, some information is being carried forward from prior records for informational purposes only and is being cited so that efficiency, safety and quality of the patient's care is not compromised This note was prepared using voice recognition software and direct typing Please excuse inadvertent roguer or typing errors, or uncorrected word substitutions Although every attempt has been made by the provider to proofread this document, occasional misspellings and typographical errors may still be present Due to the previous pandemic, and the use of personal protective equipment (PPE) This may decrease voice recognition accuracy Inadvertent roguer errors may occur 01/07/2024 Pure hypercholesterolemi a, unspecified (ICD-10 - E78.00) #Weight Management 01/07/2024 Patient is back after a hiatus to reestablish care We will start the patient on 5 mg of Mounjaro and likely will keep her on this for maintenance as she is approached target goal weight Her glycemic control seems much better on dual incretin as well She will continue with metformin 500 daily via her PCP Labs reviewed Discussed importance of protein consumption for muscle maintenance, strength and resistance training as well as probiotics, B12 complex biotin , iron and other nutrients, To also help avoid telogen effluvium while on weight loss medications such as GLP-1 Total time spent today was 30 minutes of which greater than 50% was spent on coordinating and counseling Patient has been found to be obese with a BMI of (32). Patient has class (1) obesity. We are a board certified obesity and weight management practice Patient has trialed behavioral modification, dietary restrictions and exercise for a minimum of 6 months The most recent [place] [employer] of clinical endocrinologists and [place] [employer] guidelines recommend patients who have overweight BMI or obesity BMI, who also have metabolic syndrome, prediabetes, HLD, and other comorbidities or at risk of developing type 2 diabetes should aim for a weight loss goal of at least 10% of the baseline body weight Patient counseled regarding effects of GLP/GIP-1 agonists, and other FDA approved wgt loss meds with regards to a multifactorial approach of weight loss as mentioned above and not solely appetite suppression. We have discussed the mechanism of GLP-1's/GIP, dual incretins, appetitite suppressants I think this would be fantastic option for her given her metabolic workup and body composition We have discussed the risks and benefits and side effects including/and not limited to Sarcopenia, intestinal obstruction, constipation, nausea, lethargy, headache Discussed importance of protein consumption for muscle maintenance as well as strength and resistance training ,probiotics, B12 complex biotin , iron and other nutrients, To help avoid telogen effluvium We have discussed the lifelong requirement of nutritional supplementation And adherence to an exercise regimen as well as importance of follow-up The patient understands and agrees There is no history of medullary thyroid cancer or multiple endocrine neoplasia There is also no history of cardiovascular disease, hypertension, palpitations, or arrhythmias In the setting of potential stimulant/amphetam ine use such as phentermine We have also discussed risks and benefits, and the use of compounded medications to help offset the national shortages as well as financial implications vs trade name drugs Patient was reassured and welcomed to the practice. We discussed that we stress a hollistic medical approach with emphasis on lifestyle modification. Patient was informed that a healthy lifestyle with exercise and good eating habits can help reduce his risk of medical complications. He is explained that obesity increases his risk of diabetes, cardiovascular disease, or organ damage. We spent a lot of time discussing the relationship between food, exercise, sleep, mental health and obesity. Patient was counseled on the importance EATING local, organic food when possible. Patient was educated on clean 15 and dirty dozen. I provided information about reading books called The Food Rules by Johnnie Camacho and Eat Fat Get Lean by Dr Joreg Chaudhry. Self education is important in the journey for weight management. Patient was offered diagnostic testing. We want to measure visceral adiposity, advanced body composition, adverse lipids, fatty acid balance, risk for heart disease and atherosclerosis, markers of inflammation and genetic susceptibility. Patient was counseled on weight management and was advised to lose weight using A. Meal Replacement Products We discussed the lifelong requirement of nutritional supplementation and adherence to an exercise regimen as well as importance of dietary follow-up Patient was educated on the replacement products called optifast. This is a good way of taking fixed amount of calories. It has been shown in studies to be ineffective weight management tool. We also recommend maintaining adequate protein intake and muscle composition, 1.5mg/kg This however has to be coupled with lifestyle intervention as well as laboratory data and EKG monitoring. It is impossible to know how a person will tolerate complete meal replacement. The side effects of meal replacement and weight loss could include syncopal attacks, dizziness, gallstones, potential cholecystectomy, possible heart attack and even . The benefits of meal replacement would be potential weight loss but no guarantees can be made. Meal replacement products are not covered by insurance. Once the patient has bought these products we cannot return them B. Lifestyle management which includes several strategies as below 1. Eat a low carbohydrate good fat good protein diet. Eliminate refined carbohydrates from the diet. Continue blood sugar and sugared beverages. Eat local organic when possible. Cook your own meals. Read food labels. None about healthy snacks. Portion control and food with low glycemic index 2. Exercise regularly. Try to get at least 6000 steps a day. Use a predominant to track activity level. Consider using apps like AmpIdea, myfitnesspal, lose it, stick as needed for self-monitoring and weight management. Consider group exercises. Consider hiring a household personal assistant. Regular exercise is pickens to sustainable health and prevents as a buffer against weight regain 3. Sleep is most important for healing. Tried to sleep at least 8 hours a night. A good quality sleep needs a sleep ritual with ideal room temperature of around 68. It might help to take a shower and have no electronics in the room and sleep in a very dark room without artificial light. Start her sleep routine and get up early in the morning and go to bed on time 4. Make a social connection. Surround yourself with positive people with positive energy. Connect with friends and family. 5. Get into the habit of meditating and mindfulness while doing everything. 6. Go outside and connect with nature. C. Prescription medications Patient was educated on the use of prescription medications for medical weight loss. This is a growing list and includes phentermine, Topamax,Qsymia, contrave, belviq and saxenda. All prescription medications could have side effects including but not limited to kidney stones, seizure disorder cardiac arrhythmias heart attack pancreatitis etc. etc.. Patient was encouraged to read the prescription insert and have coaching with their pharmacist and make an informed decision about taking medication and know that these medications are being prescribed with good intentions and we do not know how a patient would react to her medication. Sudden medications are FDA approved for weight loss and there is also off label use depending on patient's inability to afford medications in an attempt to lose weight D. Behavioral counseling was done to establish a relationship between food and an mood. Patient was provided information about local counseling and psychiatry and Dr Bowers at [facility]. We would like to cover regular topics and build on low glycemic eating exercise mindful eating, using yoga and meditation along with deep breathing and connecting with friends and family. E. MASS PAT reviewed, Patient's current medications were reviewed and opinion was given on medication that can cause weight gain and can be substituted F. Patient was assessed for risk with obesity including and not limiting to atherosclerosis heart disease stroke kidney disease, restrictive lung disease, irritable bowel syndrome and overall mortality. Risk of developing prediabetes diabetes and metabolic syndrome was discussed G. Therapeutic plan: We have decided to make therapeutic plan which would include choosing wisely on calories restricting portion getting active, tracking weight, getting good quality sleep and working on time management H. Patient will follow up in (4) weeks for weight management Of note, some information is being carried forward from prior records for informational purposes only and is being cited so that efficiency, safety and quality of the patient's care is not compromised This note was prepared using voice recognition software and direct typing Please excuse inadvertent roguer or typing errors, or uncorrected word substitutions Although every attempt has been made by the provider to proofread this document, occasional misspellings and typographical errors may still be present Due to the previous pandemic, and the use of personal protective equipment (PPE) This may decrease voice recognition accuracy Inadvertent roguer errors may occur 01/07/2024 Gastroesophageal reflux disease without esophagitis (ICD-10 - K21.9) #Weight Management 01/07/2024 Patient is back after a hiatus to reestablish care We will start the patient on 5 mg of Mounjaro and likely will keep her on this for maintenance as she is approached target goal weight Her glycemic control seems much better on dual incretin as well She will continue with metformin 500 daily via her PCP Labs reviewed Discussed importance of protein consumption for muscle maintenance, strength and resistance training as well as probiotics, B12 complex biotin , iron and other nutrients, To also help avoid telogen effluvium while on weight loss medications such as GLP-1 Total time spent today was 30 minutes of which greater than 50% was spent on coordinating and counseling Patient has been found to be obese with a BMI of (32). Patient has class (1) obesity. We are a board certified obesity and weight management practice Patient has trialed behavioral modification, dietary restrictions and exercise for a minimum of 6 months The most recent [place] [employer] endocrin[employer] and [place] [employer] guidelines recommend patients who have overweight BMI or obesity BMI, who also have metabolic syndrome, prediabetes, HLD, and other comorbidities or at risk of developing type 2 diabetes should aim for a weight loss goal of at least 10% of the baseline body weight Patient counseled regarding effects of GLP/GIP-1 agonists, and other FDA approved wgt loss meds with regards to a multifactorial approach of weight loss as mentioned above and not solely appetite suppression. We have discussed the mechanism of GLP-1's/GIP, dual incretins, appetitite suppressants I think this would be fantastic option for her given her metabolic workup and body composition We have discussed the risks and benefits and side effects including/and not limited to Sarcopenia, intestinal obstruction, constipation, nausea, lethargy, headache Discussed importance of protein consumption for muscle maintenance as well as strength and resistance training ,probiotics, B12 complex biotin , iron and other nutrients, To help avoid telogen effluvium We have discussed the lifelong requirement of nutritional supplementation And adherence to an exercise regimen as well as importance of follow-up The patient understands and agrees There is no history of medullary thyroid cancer or multiple endocrine neoplasia There is also no history of cardiovascular disease, hypertension, palpitations, or arrhythmias In the setting of potential stimulant/amphetam ine use such as phentermine We have also discussed risks and benefits, and the use of compounded medications to help offset the national shortages as well as financial implications vs trade name drugs Patient was reassured and welcomed to the practice. We discussed that we stress a hollistic medical approach with emphasis on lifestyle modification. Patient was informed that a healthy lifestyle with exercise and good eating habits can help reduce his risk of medical complications. He is explained that obesity increases his risk of diabetes, cardiovascular disease, or organ damage. We spent a lot of time discussing the relationship between food, exercise, sleep, mental health and obesity. Patient was counseled on the importance EATING local, organic food when possible. Patient was educated on clean 15 and dirty dozen. I provided information about reading books called The Food Rules by Johnnie Camacho and Eat Fat Get Lean by Dr Jorge Chaudhry. Self education is important in the journey for weight management. Patient was offered diagnostic testing. We want to measure visceral adiposity, advanced body composition, adverse lipids, fatty acid balance, risk for heart disease and atherosclerosis, markers of inflammation and genetic susceptibility. Patient was counseled on weight management and was advised to lose weight using A. Meal Replacement Products We discussed the lifelong requirement of nutritional supplementation and adherence to an exercise regimen as well as importance of dietary follow-up Patient was educated on the replacement products called optifast. This is a good way of taking fixed amount of calories. It has been shown in studies to be ineffective weight management tool. We also recommend maintaining adequate protein intake and muscle composition, 1.5mg/kg This however has to be coupled with lifestyle intervention as well as laboratory data and EKG monitoring. It is impossible to know how a person will tolerate complete meal replacement. The side effects of meal replacement and weight loss could include syncopal attacks, dizziness, gallstones, potential cholecystectomy, possible heart attack and even . The benefits of meal replacement would be potential weight loss but no guarantees can be made. Meal replacement products are not covered by insurance. Once the patient has bought these products we cannot return them B. Lifestyle management which includes several strategies as below 1. Eat a low carbohydrate good fat good protein diet. Eliminate refined carbohydrates from the diet. Continue blood sugar and sugared beverages. Eat local organic when possible. Cook your own meals. Read food labels. None about healthy snacks. Portion control and food with low glycemic index 2. Exercise regularly. Try to get at least 6000 steps a day. Use a predominant to track activity level. Consider using apps like AmpIdea, SameGrainpal, lose it, stick as needed for self-monitoring and weight management. Consider group exercises. Consider hiring a household personal assistant. Regular exercise is pickens to sustainable health and prevents as a buffer against weight regain 3. Sleep is most important for healing. Tried to sleep at least 8 hours a night. A good quality sleep needs a sleep ritual with ideal room temperature of around 68. It might help to take a shower and have no electronics in the room and sleep in a very dark room without artificial light. Start her sleep routine and get up early in the morning and go to bed on time 4. Make a social connection. Surround yourself with positive people with positive energy. Connect with friends and family. 5. Get into the habit of meditating and mindfulness while doing everything. 6. Go outside and connect with nature. C. Prescription medications Patient was educated on the use of prescription medications for medical weight loss. This is a growing list and includes phentermine, Topamax,Qsymia, contrave, belviq and saxenda. All prescription medications could have side effects including but not limited to kidney stones, seizure disorder cardiac arrhythmias heart attack pancreatitis etc. etc.. Patient was encouraged to read the prescription insert and have coaching with their pharmacist and make an informed decision about taking medication and know that these medications are being prescribed with good intentions and we do not know how a patient would react to her medication. Sudden medications are FDA approved for weight loss and there is also off label use depending on patient's inability to afford medications in an attempt to lose weight D. Behavioral counseling was done to establish a relationship between food and an mood. Patient was provided information about local counseling and psychiatry and Dr Bowers at [facility]. We would like to cover regular topics and build on low glycemic eating exercise mindful eating, using yoga and meditation along with deep breathing and connecting with friends and family. E. MASS PAT reviewed, Patient's current medications were reviewed and opinion was given on medication that can cause weight gain and can be substituted F. Patient was assessed for risk with obesity including and not limiting to atherosclerosis heart disease stroke kidney disease, restrictive lung disease, irritable bowel syndrome and overall mortality. Risk of developing prediabetes diabetes and metabolic syndrome was discussed G. Therapeutic plan: We have decided to make therapeutic plan which would include choosing wisely on calories restricting portion getting active, tracking weight, getting good quality sleep and working on time management H. Patient will follow up in (4) weeks for weight management Of note, some information is being carried forward from prior records for informational purposes only and is being cited so that efficiency, safety and quality of the patient's care is not compromised This note was prepared using voice recognition software and direct typing Please excuse inadvertent roguer or typing errors, or uncorrected word substitutions Although every attempt has been made by the provider to proofread this document, occasional misspellings and typographical errors may still be present Due to the previous pandemic, and the use of personal protective equipment (PPE) This may decrease voice recognition accuracy Inadvertent roguer errors may occur 01/07/2024 BMI 32.0-32.9,adult (ICD-10 - Z68.32) #Weight Management 01/07/2024 Patient is back after a hiatus to reestablish care We will start the patient on 5 mg of Mounjaro and likely will keep her on this for maintenance as she is approached target goal weight Her glycemic control seems much better on dual incretin as well She will continue with metformin 500 daily via her PCP Labs reviewed Discussed importance of protein consumption for muscle maintenance, strength and resistance training as well as probiotics, B12 complex biotin , iron and other nutrients, To also help avoid telogen effluvium while on weight loss medications such as GLP-1 Total time spent today was 30 minutes of which greater than 50% was spent on coordinating and counseling Patient has been found to be obese with a BMI of (32). Patient has class (1) obesity. We are a board certified obesity and weight management practice Patient has trialed behavioral modification, dietary restrictions and exercise for a minimum of 6 months The most recent [place] [employer] endocrinologists and [place] [employer] guidelines recommend patients who have overweight BMI or obesity BMI, who also have metabolic syndrome, prediabetes, HLD, and other comorbidities or at risk of developing type 2 diabetes should aim for a weight loss goal of at least 10% of the baseline body weight Patient counseled regarding effects of GLP/GIP-1 agonists, and other FDA approved wgt loss meds with regards to a multifactorial approach of weight loss as mentioned above and not solely appetite suppression. We have discussed the mechanism of GLP-1's/GIP, dual incretins, appetitite suppressants I think this would be fantastic option for her given her metabolic workup and body composition We have discussed the risks and benefits and side effects including/and not limited to Sarcopenia, intestinal obstruction, constipation, nausea, lethargy, headache Discussed importance of protein consumption for muscle maintenance as well as strength and resistance training ,probiotics, B12 complex biotin , iron and other nutrients, To help avoid telogen effluvium We have discussed the lifelong requirement of nutritional supplementation And adherence to an exercise regimen as well as importance of follow-up The patient understands and agrees There is no history of medullary thyroid cancer or multiple endocrine neoplasia There is also no history of cardiovascular disease, hypertension, palpitations, or arrhythmias In the setting of potential stimulant/amphetam ine use such as phentermine We have also discussed risks and benefits, and the use of compounded medications to help offset the national shortages as well as financial implications vs trade name drugs Patient was reassured and welcomed to the practice. We discussed that we stress a hollistic medical approach with emphasis on lifestyle modification. Patient was informed that a healthy lifestyle with exercise and good eating habits can help reduce his risk of medical complications. He is explained that obesity increases his risk of diabetes, cardiovascular disease, or organ damage. We spent a lot of time discussing the relationship between food, exercise, sleep, mental health and obesity. Patient was counseled on the importance EATING local, organic food when possible. Patient was educated on clean 15 and dirty dozen. I provided information about reading books called The Food Rules by Johnnie Camacho and Eat Fat Get Lean by Dr Jorge Chaudhry. Self education is important in the journey for weight management. Patient was offered diagnostic testing. We want to measure visceral adiposity, advanced body composition, adverse lipids, fatty acid balance, risk for heart disease and atherosclerosis, markers of inflammation and genetic susceptibility. Patient was counseled on weight management and was advised to lose weight using A. Meal Replacement Products We discussed the lifelong requirement of nutritional supplementation and adherence to an exercise regimen as well as importance of dietary follow-up Patient was educated on the replacement products called optifast. This is a good way of taking fixed amount of calories. It has been shown in studies to be ineffective weight management tool. We also recommend maintaining adequate protein intake and muscle composition, 1.5mg/kg This however has to be coupled with lifestyle intervention as well as laboratory data and EKG monitoring. It is impossible to know how a person will tolerate complete meal replacement. The side effects of meal replacement and weight loss could include syncopal attacks, dizziness, gallstones, potential cholecystectomy, possible heart attack and even . The benefits of meal replacement would be potential weight loss but no guarantees can be made. Meal replacement products are not covered by insurance. Once the patient has bought these products we cannot return them B. Lifestyle management which includes several strategies as below 1. Eat a low carbohydrate good fat good protein diet. Eliminate refined carbohydrates from the diet. Continue blood sugar and sugared beverages. Eat local organic when possible. Cook your own meals. Read food labels. None about healthy snacks. Portion control and food with low glycemic index 2. Exercise regularly. Try to get at least 6000 steps a day. Use a predominant to track activity level. Consider using apps like AmpIdea, myfitnesspal, lose it, stick as needed for self-monitoring and weight management. Consider group exercises. Consider hiring a household personal assistant. Regular exercise is pickens to sustainable health and prevents as a buffer against weight regain 3. Sleep is most important for healing. Tried to sleep at least 8 hours a night. A good quality sleep needs a sleep ritual with ideal room temperature of around 68. It might help to take a shower and have no electronics in the room and sleep in a very dark room without artificial light. Start her sleep routine and get up early in the morning and go to bed on time 4. Make a social connection. Surround yourself with positive people with positive energy. Connect with friends and family. 5. Get into the habit of meditating and mindfulness while doing everything. 6. Go outside and connect with nature. C. Prescription medications Patient was educated on the use of prescription medications for medical weight loss. This is a growing list and includes phentermine, Topamax,Qsymia, contrave, belviq and saxenda. All prescription medications could have side effects including but not limited to kidney stones, seizure disorder cardiac arrhythmias heart attack pancreatitis etc. etc.. Patient was encouraged to read the prescription insert and have coaching with their pharmacist and make an informed decision about taking medication and know that these medications are being prescribed with good intentions and we do not know how a patient would react to her medication. Sudden medications are FDA approved for weight loss and there is also off label use depending on patient's inability to afford medications in an attempt to lose weight D. Behavioral counseling was done to establish a relationship between food and an mood. Patient was provided information about local counseling and psychiatry and Dr Bowers at [facility]. We would like to cover regular topics and build on low glycemic eating exercise mindful eating, using yoga and meditation along with deep breathing and connecting with friends and family. E. MASS PAT reviewed, Patient's current medications were reviewed and opinion was given on medication that can cause weight gain and can be substituted F. Patient was assessed for risk with obesity including and not limiting to atherosclerosis heart disease stroke kidney disease, restrictive lung disease, irritable bowel syndrome and overall mortality. Risk of developing prediabetes diabetes and metabolic syndrome was discussed G. Therapeutic plan: We have decided to make therapeutic plan which would include choosing wisely on calories restricting portion getting active, tracking weight, getting good quality sleep and working on time management H. Patient will follow up in (4) weeks for weight management Of note, some information is being carried forward from prior records for informational purposes only and is being cited so that efficiency, safety and quality of the patient's care is not compromised This note was prepared using voice recognition software and direct typing Please excuse inadvertent roguer or typing errors, or uncorrected word substitutions Although every attempt has been made by the provider to proofread this document, occasional misspellings and typographical errors may still be present Due to the previous pandemic, and the use of personal protective equipment (PPE) This may decrease voice recognition accuracy Inadvertent roguer errors may occur PLAN OF TREATMENT Medication Medication Name Sig Start Date Stop Date Notes Mounjaro 2.5 MG/0.5ML inject 2.5mg weekl y subcutaneously Please fill prescription through the savings co-pay card program and not through insurance Prior authorization NOTrequired Diagnosis e11.9 Subcutaneous weekly for 30 days MiraLax 17 GM 1 packet mixed with 8 ounces of fluid Orally Once a day for 30 day(s) Mounjaro 5 MG/0.5ML 5mg Subcutaneous weekly for 30 days Progress Notes * Micaela VELAZQUEZDOB: [birth year] (48 yo F)Acc No.[id number]:01/07/2024 Patient:??Micaela VELAZQUEZ Provider:??KRISTIN BARRERA NP :[id number]?Age:48 Y?Sex:Fe male Date:01/07/2024 Address:[address] [place], [place] [id number] Subjective: * Chief Complaints: * ?1. Pt seen in office f or wt mgt f/u visit, Pt declined SECA.. * HPI: ?Constitutional:? Patient is here today for a Weight management follow-up visit ?Patient seen and examined. ? Full past medical history, social history, family history, ?allergies and current medications were reviewed and updated. ?Body composition analysis reviewed today, as expected increased BMI, ?visceral adiposity, fat mass index, waist cirumference ?Good skeletal mass composition, Good water composition ?Caloric energy expenditure discussed ?#Weight Management ?01/07/2024 ?Long hiatus patient has not been seen in over a year ?Interested in starting back on Mounjaro 5 mg ?Has always been on this dose and tolerated it well ?States it has helped with her sugars tremendously ?Only endorses constipation, and has tried prune tabs which have helped ?Otherwise, doing well ?States at home blood sugars have been around 100s in the morning ?Currently on Metformin 500 mg once daily ?States her Hgb A1c decreased from 7.9 % to 5.6%, checked at last PCP visit in 2022 ?Updated comprehensive labs w/ [facility] PCP in September 2023 ?01/07/2024, Weight 170 Ibs, BMI 32 ?01/09/2023: Weight 170lbs, BMI: 32.12 (-6 lbs) ?11/28/2022: Weight 176lbs, BMI (-14lbs) ?10/10/2022: Weight 190 lbs, BMI 35: ?Patient referred to us from other wgt mgt patients of our practice ?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 ?Metabolic workup: ?Comprehensive labs 11/2022 ?Total cholesterol 208, LDL 109, HDL 89, triglycerides 51 ?TSH 1.03 ?Hemoglobin A1c 6.2 ?September 2023, hemoglobin A1c of 5.6 ?Has not had an echocardiogram recently ?Diet: not ideal, rice, starches, and meats ?does utilize intermittent fasting ?Exercise: Currently not tracking steps daily. ?Non-smoker. ?ETOH use: seldom ?has trialed friends phentemrine and did lose 10lbs. * ROS:?All Other Systems:?Review of Systems (ROS)??All others negative except those mentioned in HPI.? * Medical History:??Hyperlipid emia, type II diabetes. * Surgical History:??breast re construction , C section . * Hospitalization/Major Diagno stic Procedure:??Denies Past Hospitalization. * Family History:??Father: dec eased.??Mother: alive.??1 sister(s) - healthy. 1 daughter(s) - healthy. .?? * Social History:?Tobacco Use:??Tobacco Use/Smoking??Are you a??nonsmoker.?? * Medications:??Taking Omepraz ole 20 MG Capsule Delayed Release 1 capsule 30 minutes before morning meal Orally Once a day , Taking traZODone HCl 50 MG Tablet 1 tablet at bedtime as needed Orally Once a day , Taking Pravastatin Sodium 10 MG Tablet 1 tablet Orally Once a day , Taking metFORMIN HCl 500 MG Tablet 3 tablet with a meal Orally Once a day , Discontinued Mounjaro 5 MG/0.5ML Solution Pen-injector 5mg Subcutaneous weekly , Discontinued FreeStyle Jeff 3 Sensor - Miscellaneous use one sensor DX: E11.9 subcutaneous every 14 days , Discontinued MiraLax 17 GM Packet 1 packet mixed with 8 ounces of fluid Orally Once a day , Discontinued Mounjaro 2.5 MG/0.5ML Solution Pen-injector inject 2.5mg weekly subcutaneously Please fill prescription through the [employer] co-pay card program and not through insurance Prior authorization NOTrequired Diagnosis e11.9 Subcutaneous weekly , Medication List reviewed and reconciled with the patient * Allergies:??N.K.D.A. Objective: * Vitals:??HR:82/min, BP:124/7 6mm Hg, Wt:170lbs, BMI:32.12Index, Ht: 61 in, Oxygen sat %:99%. * Examination: ?General Examination: ?GENERAL APPEARANCE:??in no acute distress, well developed, well nourished.??HEAD:??normocephalic, atraumatic.??EYES:??pupils equal, round, reactive to light and accommodation.??EARS:??normal.??ORAL CAVITY:??mucosa moist.??THROAT:??clear.??NECK/THYROID:??neck supple, full range of motion, no cervical lymphadenopathy.??SKIN:??no suspicious lesions, warm and dry.??HEART:??no murmurs, regular rate and rhythm, S1, S2 normal.??LUNGS:??clear to auscultation bilaterally.??ABDOMEN:??normal, bowel sounds present, soft, nontender, nondistended.??EXTREMITIES:??no clubbing, cyanosis, or edema.??NEUROLOGIC:??nonfocal, motor strength normal upper and lower extremities, sensory exam intact.? Assessment: * Assessment: 1.??Obesity (BMI 30-39.9) - E66.9 (Primary)??2.??Type 2 diabetes mellitus without complication, without long-term current use of insulin - E11.9??3.??Pure hypercholesterolemia, unspecified - E78.00??4.??Gastroesophageal reflux disease without esophagitis - K21.9??5.??BMI 32.0-32.9,adult - Z68.32?? #Weight Management 01/07/2024 Patient is back after a hiatus to reestablish care We will start the patient on 5 mg of Mounjaro and likely will keep her on this for maintenance as she is approached target goal weight Her glycemic control seems much better on dual incretin as well She will continue with metformin 500 daily via her PCP Labs reviewed Discussed importance of protein consumption for muscle maintenance, strength and resistance training as well as probiotics, B12 complex biotin , iron and other nutrients, To also help avoid telogen effluvium while on weight loss medications such as GLP-1 Total time spent today was 30 minutes of which greater than 50% was spent on coordinating and counseling Patient has been found to be obese with a BMI of (32). Patient has class (1) obesity. We are a board certified obesity and weight management practice Patient has trialed behavioral modification, dietary restrictions and exercise for a minimum of 6 months The most recent [place] [employer] of clinical endocrinologists and [place] [employer] of endocrinology guidelines recommend patients who have overweight BMI or obesity BMI, who also have metabolic syndrome, prediabetes, HLD, and other comorbidities or at risk of developing type 2 diabetes should aim for a weight loss goal of at least 10% of the baseline body weight Patient counseled regarding effects of GLP/GIP-1 agonists, and other FDA approved wgt loss meds with regards to a multifactorial approach of weight loss as mentioned above and not solely appetite suppression. We have discussed the mechanism of GLP-1's/GIP, dual incretins, appetitite suppressants I think this would be fantastic option for her given her metabolic workup and body composition We have discussed the risks and benefits and side effects including/and not limited to Sarcopenia, intestinal obstruction, constipation, nausea, lethargy, headache Discussed importance of protein consumption for muscle maintenance as well as strength and resistance training ,probiotics, B12 complex biotin , iron and other nutrients, To help avoid telogen effluvium We have discussed the lifelong requirement of nutritional supplementation And adherence to an exercise regimen as well as importance of follow-up The patient understands and agrees There is no history of medullary thyroid cancer or multiple endocrine neoplasia There is also no history of cardiovascular disease, hypertension, palpitations, or arrhythmias In the setting of potential stimulant/amphetamine use such as phentermine We have also discussed risks and benefits, and the use of compounded medications to help offset the national shortages as well as financial implications vs trade name drugs Patient was reassured and welcomed to the practice. We discussed that we stress a hollistic medical approach with emphasis on lifestyle modification. Patient was informed that a healthy lifestyle with exercise and good eating habits can help reduce his risk of medical complications. He is explained that obesity increases his risk of diabetes, cardiovascular disease, or organ damage. We spent a lot of time discussing the relationship between food, exercise, sleep, mental health and obesity. Patient was counseled on the importance EATING local, organic food when possible. Patient was educated on clean 15 and dirty dozen. I provided information about reading books called The Food Rules by Johnnie Camacho and Eat Fat Get Lean by Dr Jorge Chaudhry. Self education is important in the journey for weight management. Patient was offered diagnostic testing. We want to measure visceral adiposity, advanced body composition, adverse lipids, fatty acid balance, risk for heart disease and atherosclerosis, markers of inflammation and genetic susceptibility. Patient was counseled on weight management and was advised to lose weight using A. Meal Replacement Products We discussed the lifelong requirement of nutritional supplementation and adherence to an exercise regimen as well as importance of dietary follow-up Patient was educated on the replacement products called optifast. This is a good way of taking fixed amount of calories. It has been shown in studies to be ineffective weight management tool. We also recommend maintaining adequate protein intake and muscle composition, 1.5mg/kg This however has to be coupled with lifestyle intervention as well as laboratory data and EKG monitoring. It is impossible to know how a person will tolerate complete meal replacement. The side effects of meal replacement and weight loss could include syncopal attacks, dizziness, gallstones, potential cholecystectomy, possible heart attack and even . The benefits of meal replacement would be potential weight loss but no guarantees can be made. Meal replacement products are not covered by insurance. Once the patient has bought these products we cannot return them B. Lifestyle management which includes several strategies as below 1. Eat a low carbohydrate good fat good protein diet. Eliminate refined carbohydrates from the diet. Continue blood sugar and sugared beverages. Eat local organic when possible. Cook your own meals. Read food labels. None about healthy snacks. Portion control and food with low glycemic index 2. Exercise regularly. Try to get at least 6000 steps a day. Use a predominant to track activity level. Consider using apps like AmpIdea, myfitDirectMoneypal, lose it, stick as needed for self-monitoring and weight management. Consider group exercises. Consider hiring a household personal assistant. Regular exercise is pickens to sustainable health and prevents as a buffer against weight regain 3. Sleep is most important for healing. Tried to sleep at least 8 hours a night. A good quality sleep needs a sleep ritual with ideal room temperature of around 68. It might help to take a shower and have no electronics in the room and sleep in a very dark room without artificial light. Start her sleep routine and get up early in the morning and go to bed on time 4. Make a social connection. Surround yourself with positive people with positive energy. Connect with friends and family. 5. Get into the habit of meditating and mindfulness while doing everything. 6. Go outside and connect with nature. C. Prescription medications Patient was educated on the use of prescription medications for medical weight loss. This is a growing list and includes phentermine, Topamax,Qsymia, contrave, belviq and saxenda. All prescription medications could have side effects including but not limited to kidney stones, seizure disorder cardiac arrhythmias heart attack pancreatitis etc. etc.. Patient was encouraged to read the prescription insert and have coaching with their pharmacist and make an informed decision about taking medication and know that these medications are being prescribed with good intentions and we do not know how a patient would react to her medication. Sudden medications are FDA approved for weight loss and there is also off label use depending on patient's inability to afford medications in an attempt to lose weight D. Behavioral counseling was done to establish a relationship between food and an mood. Patient was provided information about local counseling and psychiatry and Dr Bowers at [facility]. We would like to cover regular topics and build on low glycemic eating exercise mindful eating, using yoga and meditation along with deep breathing and connecting with friends and family. E. MASS PAT reviewed, Patient's current medications were reviewed and opinion was given on medication that can cause weight gain and can be substituted F. Patient was assessed for risk with obesity including and not limiting to atherosclerosis heart disease stroke kidney disease, restrictive lung disease, irritable bowel syndrome and overall mortality. Risk of developing prediabetes diabetes and metabolic syndrome was discussed G. Therapeutic plan: We have decided to make therapeutic plan which would include choosing wisely on calories restricting portion getting active, tracking weight, getting good quality sleep and working on time management H. Patient will follow up in (4) weeks for weight management Of note, some information is being carried forward from prior records for informational purposes only and is being cited so that efficiency, safety and quality of the patient's care is not compromised This note was prepared using voice recognition software and direct typing Please excuse inadvertent roguer or typing errors, or uncorrected word substitutions Although every attempt has been made by the provider to proofread this document, occasional misspellings and typographical errors may still be present Due to the previous pandemic, and the use of personal protective equipment (PPE) This may decrease voice recognition accuracy Inadvertent roguer errors may occur. Plan: * Treatment: 2.??Others?? Start Mounjaro Solution Pen-injector, 5 MG/0.5ML, 5mg, Subcutaneous, weekly, 30 days, 4 Pen Needle, Refills 3.? * Images: Billing Information: * Visit Code:?? 51775 Office Visit, Est Pt., Level 4. Modifiers: 25 * Procedure Codes:?? * Sign off status: Completed true * Provider:??KRISTIN BARRERA NP Date:??03/2024 History and Physical Notes * HPI (History of Present Illness) Category Sub-Category Detail Notes Category Not es Constitutional Patient is here today for a Weight management follow-up visit Patient seen and examined. Full past medical history, social history, family history, allergies and current medications were reviewed and updated. Body composition analysis reviewed today, as expected increased BMI, visceral adiposity, fat mass index, waist cirumference Good skeletal mass composition, Good water composition Caloric energy expenditure discussed #Weight Management 01/07/2024 Long hiatus patient has not been seen in over a year Interested in starting back on Mounjaro 5 mg Has always been on this dose and tolerated it well States it has helped with her sugars tremendously Only endorses constipation, and has tried prune tabs which have helped Otherwise, doing well States at home blood sugars have been around 100s in the morning Currently on Metformin 500 mg once daily States her Hgb A1c decreased from 7.9 % to 5.6%, checked at last PCP visit in 2022 Updated comprehensive labs w/ [facility] PCP in September 2023 01/07/2024, Weight 170 Ibs, BMI 32 01/09/2023: Weight 170lbs, BMI: 32.12 (-6 lbs) 11/28/2022: Weight 176lbs, BMI (-14lbs) 10/10/2022: Weight 190 lbs, BMI 35: Patient referred to us from other wgt mgt patients of our practice 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 Metabolic workup: Comprehensive labs 11/2022 Total cholesterol 208, LDL 109, HDL 89, triglycerides 51 TSH 1.03 Hemoglobin A1c 6.05 September 2023, hemoglobin A1c of 5.6 Has not had an echocardiogram recently Diet: not ideal, rice, starches, and meats does utilize intermittent fasting Exercise: Currently not tracking steps daily. Non-smoker. ETOH use: seldom has trialed friends phentemrine and did lose 10lbs Examination Category Sub-Category Detail Notes Category Not es General Examination GENERAL APPEARANCE: in no ac elli distress, well developed, well nourished HEAD: normocephalic, atrau matic EYES: pupils equal, round, reactive to light and accommodation EARS: normal THROAT: clear NECK/THYROID: neck supple, full ra nge of motion, no cervical lymphadenopathy HEART: no murmurs, regular rate and rhythm, S1, S2 normal LUNGS: clear to auscultatio n bilaterally ABDOMEN: normal, bowel sounds present, soft, nontender, nondistended NEUROLOGIC: nonfocal, motor stre ngth normal upper and lower extremities, sensory exam intact SKIN: no suspicious lesion s, warm and dry EXTREMITIES: no clubbing, cyanosi s, or edema ORAL CAVITY: mucosa moist
--- OUTSIDE RECORDS SUMMARY | 2024-11-30 17:18 | XMS_ITS ---
Author Organization [facility] Address [address] [place] [address] Care Team Providers Care Director Hris Name Role Phone KRISTIN BARRERA Unavailable [phone] Encounters Encounter Location Date Provider Diagnosis [address] [address] 06/11/2023 KRISTIN BARRERA PLAN OF TREATMENT No Information Progress Notes * Micaela VELAZQUEZDOB: [birth year] (48 yo F)Acc No.[id number]:06/11/2023 Patient:??Micaela VELAZQUEZ Provider:??KRISTIN BARRERA NP :1975?Age:47 Y?Sex:Fe male Date:06/11/2023 Address:[address] [place] [address] [place] Subjective: * Chief Complaints: * ? * Medical History:?? Objective: Assessment: Plan: * Treatment: * Images: Billing Information: * Visit Code:?? * Procedure Codes:?? * Sign off status: Pending * Provider:??KRISTIN BARRERA NP Date:??06/2023
--- OUTSIDE RECORDS SUMMARY | 2024-11-30 17:18 | XMS_ITS | Patient Health Record ---
Author Organization [facility] Address [address] [place] [address] Care Team Providers Care Recruit Instructor Name Role Phone KRISTIN BARRERA Unavailable [phone] ALLERGIES No Known Allergies REASON FOR REFERRAL No Information MEDICATIONS Medication SIG (Take, Route, Frequency, Duration) [...] W/U Status Risk SNOMED Code Notes Problem Pure hypercholesterolemia , unspecified (E78.00) Active confirmed 896477208 Problem Gastroesophageal reflux disease without esophagitis (K21.9) Active confirmed 556060386 Problem Type 2 diabetes mellitus without complication, without long-term current use of insulin (E11.9) Active confirmed 468902904 Problem Obesity (BMI 30-39.9) (E66.9) Active confirmed 217029887 Problem BMI 35.0-35.9,adult (Z68.35) Active confirmed 159443217 Problem BMI 33.0-33.9,adult (Z68.33) Active confirmed 361032027 Problem BMI 32.0-32.9,adult (Z68.32) Active confirmed 056257055 VITAL SIGNS Heart Rate 82 /min 01/07/2024 Oximetry 99 % 01/07/2024 Blood pressure diastolic 76 mm Hg 01/07/2024 Height 61 in 01/07/2024 Blood pressure systolic 124 mm Hg 01/07/2024 Weight 170 lbs 01/07/2024 BMI 32.12 kg/m2 01/07/2024 Encounters Encounter Location Date Provider Diagnosis [facility] [address] [address] 01/07/2024 KRISTIN BARRERA Type 2 diabetes stewart [...] minimum of 6 months The most recent [place] [employer] of clinical endocrinologists and [place] [employer] endocrinology guidelines recommend patients who [...] track activity level. Consider using apps like MediVisionise, myfitGenemationpal, lose it, stick as needed for self-monitoring [...] counseling and psychiatry and Dr Bowers at [facility]. We would like to cover regular topics [...] software and direct typing Please excuse inadvertent tool honing machine set up operator or typing errors, or uncorrected word substitutions Although every attempt has been made by the provider to proofread this document, occasional misspellings and typographical errors may still be present Due to the previous pandemic, and the use of personal protective equipment (PPE) This may decrease voice recognition accuracy Inadvertent tool honing machine set up operator errors may occur 01/07/2024 Obesity (BMI 30-39.9) [...] minimum of 6 months The most recent [place] [employer] of clinical endocrinologists and [place] [employer] endocrinology guidelines recommend patients who [...] track activity level. Consider using apps like [employer], Nordic Riverpal, lose it, stick as needed for self-monitoring [...] counseling and psychiatry and Dr Bowers at [facility]. We would like to cover regular topics [...] software and direct typing Please excuse inadvertent tool honing machine set up operator or typing errors, or uncorrected word substitutions Although every attempt has been made by the provider to proofread this document, occasional misspellings and typographical errors may still be present Due to the previous pandemic, and the use of personal protective equipment (PPE) This may decrease voice recognition accuracy Inadvertent tool honing machine set up operator errors may occur 01/07/2024 Pure hypercholesterolemi a, [...] minimum of 6 months The most recent [place] [employer] of clinical endocrinologists and [place] [employer] endocrinology guidelines recommend patients who [...] track activity level. Consider using apps like [employer] [facility], Nordic Riverpal, lose it, stick as needed for self-monitoring [...] counseling and psychiatry and Dr Bowers at [facility]. We would like to cover regular topics [...] software and direct typing Please excuse inadvertent tool honing machine set up operator or typing errors, or uncorrected word substitutions Although every attempt has been made by the provider to proofread this document, occasional misspellings and typographical errors may still be present Due to the previous pandemic, and the use of personal protective equipment (PPE) This may decrease voice recognition accuracy Inadvertent tool honing machine set up operator errors may occur 01/07/2024 Gastroesophageal reflux disease [...] minimum of 6 months The most recent [place] [employer] of clinical endocrinologists and [place] [employer] endocrinology guidelines recommend patients who [...] track activity level. Consider using apps like [employer], myfitGenemationpal, lose it, stick as needed for self-monitoring [...] counseling and psychiatry and Dr Bowers at [facility]. We would like to cover regular topics [...] software and direct typing Please excuse inadvertent tool honing machine set up operator or typing errors, or uncorrected word substitutions Although every attempt has been made by the provider to proofread this document, occasional misspellings and typographical errors may still be present Due to the previous pandemic, and the use of personal protective equipment (PPE) This may decrease voice recognition accuracy Inadvertent tool honing machine set up operator errors may occur 01/07/2024 BMI 32.0-32.9,adult (ICD-10 [...] minimum of 6 months The most recent [place] [employer] of clinical endocrinologists and [place] [employer] of endocrinology guidelines recommend patients who [...] track activity level. Consider using apps like [employer], Nordic Riverpal, lose it, stick as needed for self-monitoring [...] counseling and psychiatry and Dr Bowers at [facility]. We would like to cover regular topics [...] software and direct typing Please excuse inadvertent tool honing machine set up operator or typing errors, or uncorrected word substitutions Although every attempt has been made by the provider to proofread this document, occasional misspellings and typographical errors may still be present Due to the previous pandemic, and the use of personal protective equipment (PPE) This may decrease voice recognition accuracy Inadvertent tool honing machine set up operator errors may occur PLAN OF TREATMENT No Information Insurance Providers Payer Name Payer Address Payer Phone Subscriber Number Group Number Insured Name Patient Relationship to Insured Coverage Start Date Coverage End Date [facility] [address] [place] [address] [id number] Micaela Velazquez Self - patient is the insured MEDICATIONS ADMINISTERED Medication Instructions Date of Administration Dosage Notes MICC B12 INJECTION 10/10/2022 1 MICC B12 INJECTION 01/09/2023 1 MICC B12 INJECTION 03/13/2023 MICC B12 INJECTION 05/06/2023 MEDICAL (GENERAL) HISTORY Medical History History ICD Code hyperlipidemia type II diabetes Surgical History Surgery Date(Month/Year) breast reconstruction C section
--- OUTSIDE RECORDS SUMMARY | 2024-11-30 17:18 | XMS_ITS | Continuity of Care Document ---
Author Organization [facility] Address [address], [address] [place] [address]- Care Team Providers Care Material Handling Warehouse Supervisor Name Role Phone Shalonda Bundy MD Primary Care Physician [phone] Encounter 10/30/24 - 11/06/24 [facility] [address], [address] [place], [place] [address] Attending Physician: Shalonda Bundy MD Admitting Physician: Shalonda Bundy MD Referring Physician: Shalonda Bundy MD Encounter Type: OutPatient One Time Allergies, Adverse Reactions, Alerts No Known Allergies Immunizations Given and Recorded Vaccine Date Status Refusal Reason tetanus/diphtheria/pertussis, acel(Tdap) 09/03/23 Given tetanus/diphtheria/pertussis, acel(Tdap) 02/26/12 Recorded influenza virus vaccine, inactivated 09/03/23 Give n influenza virus vaccine, inactivated 08/29/22 Give n influenza virus vaccine, inactivated 07/30/20 Dane rded influenza virus vaccine, inactivated 09/07/19 Give n influenza virus vaccine, inactivated 09/02/18 Give n influenza virus vaccine, inactivated 09/03/17 Dane rded SARS-CoV-2 (COVID-19) mRNA-1273 vaccine 11/16/21 R ecorded SARS-CoV-2 (COVID-19) Ad26 vaccine 02/06/21 Record ed Medications Alyacen 35 oral tablet 1 tablet, By Mouth, Daily, # 30 tablet, 1 Refills, Maintenance, 10/20/20 10:37:00 AM EST, [facility]/pharmacy #[id number], Partial fill upon patient request if the prescription is for a schedule II opioid drug., 1 tablet By Mouth Daily, 157.48, cm, 09/16/20 14:31:00 EST, Height Start Date: 10/20/20 Status: Ordered Quantity: 30.0 Unit: tablet Repeat number: 2 BCP BCP, Refills 0, Maintenance, 03/20/19 10:58:30 AM EDT, Compound Start Date: 03/20/19 Status: Ordered Repeat number: 1 cyclobenzaprine 10 mg oral tablet 1, tablet, By Mouth, 3 times a day, PRN, # 30 tablet, Refills 3, Tot. Refills 3, Maintenance, NEEDED FOR MUSCLE SPASMS, 09/07/24 5:35:00 PM EST, Route to Pharmacy Electronically, [facility]/pharmacy #[id number], 157, cm, 09/07/24 15:11:00 EST, Height Start Date: 09/07/24 Status: Ordered Quantity: 30.0 Unit: tablet Repeat number: 4 ergocalciferol 87992 iu oral capsule 50,000 International_Units, 1, capsule, By Mouth, Every week, # 6 capsule, Refills 0, Tot. Refills 0, Maintenance, 10/30/24 4:44:00 PM EST, Route to Pharmacy Electronically, [facility]/pharmacy #[id number], Partial fill upon patient request if the prescription is for a schedule II opioid drug., 157, cm, 10/30/24 15:52:00 EST, Height Start Date: 10/30/24 Stop Date: 12/11/24 Status: Ordered Quantity: 6.0 Unit: capsule Repeat number: 1 Freestyle Lite Lancets See Instructions, # 200 each, Refills 5, Tot. Refills 5, Maintenance, use as directed for Type 2 Diabetes Mellitus measure blood sugar 2 to 3x a day, 08/15/21 3:04:00 PM EDT, Supply, 158, cm, 08/01/21 9:06:00 EDT, Height, 87, kg, 07/13/21 16:14:00 EDT, Dry Weight Start Date: 08/15/21 Stop Date: 02/11/22 Status: Ordered Quantity: 200.0 Unit: each Repeat number: 6 Freestyle Lite Monitor See Instructions, # 1 each, Maintenance, check blood sugars daily in the morning or as needed, 06/30/19 5:04:48 PM EDT, Compound Start Date: 06/30/19 Status: Ordered Quantity: 1.0 Unit: each Repeat number: 1 Indication: Type 2 diabetes mellitus without complications Freestyle Lite Test Strips See Instructions, # 30 each, Refills 11, Tot. Refills 11, Maintenance, check blood sugar daily in the am or as needed, 05/10/21 4:50:00 PM EDT, Compound, 157, cm, 03/15/21 8:34:00 EDT, Height, 86, kg, 11/29/20 7:06:00 EST, Dry Weight Start Date: 05/10/21 Status: Ordered Quantity: 30.0 Unit: each Repeat number: 12 Indication: Type 2 diabetes mellitus without complications Golytely - oral powder for reconstitution 240 mL, By Mouth, Every 10 minutes, # 4,000 mL, 0 Refills, Maintenance, 09/16/20 2:42:00 PM EST, REC Powder, [facility]/pharmacy #[id number], Partial fill upon patient request, 240 mL By Mouth Every 10 minutes, 157.48, cm, 09/16/20 14:31:00 EST, Height Start Date: 09/16/20 Status: Ordered Quantity: 4000.0 Unit: mL Repeat number: 1 metFORMIN 500 mg oral tablet, extended release 1 tablet = 500 mg, By Mouth, Daily, # 90 tablet, 3 Refills, Maintenance, 09/07/24 5:36:00 PM EST, ERTablet, [facility]/pharmacy #[id number], Partial fill upon patient request if the prescription is for a scheduleII opioid drug., 157, cm, 09/07/24 15:11:00 EST, Height Start Date: 09/07/24 Stop Date: 09/02/25 Status: Ordered Quantity: 90.0 Unit: tablet Repeat number: 4 Multivitamin Daily, 0 Refills, Maintenance, 03/20/19 10:58:17 AM EDT Start Date: 03/20/19 Status: Ordered Repeat number: 1 naproxen 500 mg oral tablet 1 tablet = 500 mg, By Mouth, 2 times a day, # 60 tablet, 1 Refills, Acute 10/16/25 2:52:00 PM EST, 10/16/24 2:52:00 PM EST, Tablet, [facility]/pharmacy #[id number], Partial fill upon patient request if the prescription is for a schedule II opioid drug., 157, cm, 10/16/24 14:34:00 EST, Height Start Date: 10/16/24 Stop Date: 10/16/25 Status: Ordered Quantity: 60.0 Unit: tablet Repeat number: 2 omeprazole 40 mg oral enteric coated capsule 1 capsule, By Mouth, Daily, # 90 capsule, 2 Refills, Maintenance, 09/07/24 5:35:00 PM EST, [facility]/pharmacy #[id number], 157, cm, 09/07/24 15:11:00 EST, Height Start Date: 09/07/24 Status: Ordered Quantity: 90.0 Unit: capsule Repeat number: 3 pravastatin 10 mg oral tablet 1 tablet, By Mouth, Daily, # 90 tablet, 2 Refills, 12/05/22 12:03:00 PM EST, [facility]/pharmacy #[id number], 157,cm, 12/05/22 11:44:00 EST, Height, 87, kg, 04/03/22 14:52:00 EDT, Dry Weight Start Date: 12/05/22 Status: Ordered Quantity: 90.0 Unit: tablet Repeat number: 3 pravastatin 20 mg oral tablet 20 mg, 1, tablet, By Mouth, Daily, # 90 tablet, Refills 3, Tot. Refills 3, Maintenance, 09/07/24 5:35:00 PM EST, Route to Pharmacy Electronically, [facility]/pharmacy #[id number], Partial fill upon patient requestif the prescription is for a schedule II opioid drug., 157, cm, 09/07/24 15:11:00 EST, Height Start Date: 09/07/24 Status: Ordered Quantity: 90.0 Unit: tablet Repeat number: 4 Multivitamins By Mouth, Daily, 0 Refills, Maintenance, 08/03/20 10:11:00 AM EDT Start Date: 08/03/20 Status: Ordered Repeat number: 1 traZODone 50 mg oral tablet 1, tablet, By Mouth, Daily at bedtime, # 90 tablet, Refills 0, Tot. Refills 0, Maintenance, :36:00 PM EST, Route to Pharmacy Electronically, [facility]/pharmacy #[id number], 157, cm, 09/07/24 15:11:00 EST, Height Start Date: 09/07/24 Status: Ordered Quantity: 90.0 Unit: tablet Repeat number: 1 Problem List Condition Confirmation Course Effective Dates Status Health Status Informant Diabetes mellitus Confirmed Active Hypercholesterolemia Confirmed Active Anxiety and depression Confirmed Active Obese class I Confirmed Active Results Radiology Reports * Exam Date Time Procedure Performing Provider Status 10/30/24 3:35 PM Chest 2 Views Frontal and Lat Jag Carrington; Arianna (Verified) Notes: (Chest 2 Views Frontal and Lat) Reason For Exam: check for TB;Occupational Exposure RESULT: Chest 2 Views Frontal and Lat Chest 2 Views Frontal and Lat Reason: Occupational Exposure; check for TB COMPARISON: 07/13/2021 FINDINGS: LINES AND TUBES: None. LUNGS AND PLEURA: There is a stable tiny granuloma in the left lung base. The lungs are otherwise clear. No pleural effusion. No pneumothorax. HEART, MEDIASTINUM AND DIAN: Heart is normal in size. Normal mediastinal and hilar contour. BONES AND SOFT TISSUES: No acute abnormality. IMPRESSION: A tiny granuloma in the left lung base. No acute process. WSN: [id number] Ordering Physician: Shalonda Bundy Dictated By: Gavin Carpenter MD Dictated Date/Time: 10/30/24 3:41 pm Reviewed By: Gavin Carpenter MD Signed By: Gavin Carpenter MD Signed Date/Time: 10/30/24 3:41 pm Transcribed By: TEGAN Transcribed Date/Time: 10/30/24 3:39 pm Social History Social History Type Response Smoking Status Never smoker entered on: 09/02/18 Sex Sex Representation Female (finding) Patient Care team information Care Team Personnel Name: Shalonda Bundy MD Position: S Physician - Primary Care Member Role: PCP Address: [address] [place] [address] Telecom: Care Team Related Persons Name: CASS SANTANA Name: CASS LOZA Name: CLARE MELTON Insurance Providers Guarantor name: RAYMOND MEGAN Health Plan Information #: 1 Payer: [facility] [employer] Member Number: [id number] Policy Number: NA Group Number: [id number] Health Plan Information #: 2 Payer: [facility] [employer] Member Number: [id number] Policy Number: NA Group Number: [id number]
== END 2024-11-30 12:36 | disposition home or self-care (01) ==
LOC: HO.LAB 12:35
PROVIDERS: PCP Internal Medicine; Visit Provider Physician Assistant
DX: K58.9 Irritable bowel syndrome, unspecified (principal); K59.09 Other constipation; R19.8 Other specified symptoms and signs involving the digestive system and abdomen; Z13.1 Encounter for screening for diabetes mellitus
CPT/HCPCS: 36415; 80053; 83036; 84443; 85025

== ENCOUNTER 2024-12-02 10:55 | Outpatient (AMB) | payer OTHER, SELFPAY ==
--- NOTE | 2024-12-02 11:00 | A.OFFVIS_ITS ---
Vital Signs 12/02/24 11:01 Height 5 ft 2 in Weight 180 lb 12.465 oz BMI 33.1 BP 109/58 L Blood Pressure Location Lt brachial Position Sitting Pulse 84 Intake Visit Reasons: Chronic Constipation Intake Note: Micaela presents in the office as a Jayne patient for Chronic Constipation. CC: Last colo was done at [facility] in 2020. She states that has severe constipation and does not have the urge to even have a BM. BM depends on the prunelax that she takes - she takes it every 2 days and this has been going on for a year now. Allergies No Known Allergies Allergy (Verified 03/03/25 12:41) HPI Comments Details: 48 y.o F who is here for constipation follow up. Reports sx started around Sep 2020 after she had covid-19. Right after covid-19 she had chronic diarrhea x 6-7 months. Had work [place] done [place] 2020 for [place] [facility]. BM remained loose up until Nov 2022 - reports starting Mounjaro 2.5 in Oct. Eventually stopped it in Aug 2023 becuase the constipation was severe. Constipation is described as 3-4 BMs/week with prunelax. Prior to starting prunelax was having 1 BM/week which was hard and small jesse. No blood in stool. Apart from prunelax also takes metamucil. 11/2020: normal duo and colo bx. Fam hx: Mat grandfather with CRC dx at 61 y.o Mother: polyps [facility] Medical History Type 2 diabetes mellitus with unspecified complications Surgical History Hx of colonoscopy History of esophagogastroduodenoscopy (EGD) History of section (~2008) History of bilateral breast reduction surgery (~2004) Family History Father Myocardial infarction Diabetes Mother Diabetes Maternal Grandfather Colon cancer Social History Household Members: Spouse and Family Housing: House Alcohol intake: never Patient Tobacco Use Status: Never used Tobacco Current occupational status: employed Current occupation: [employer] Sexual orientation: Straight/Heterosexual Gender identity: Female Review of Systems Const All systems reviewed & are unremarkable except as noted in HPI and below Physical Exam Vital Signs: Last Vital Signs Pulse 84 12/02/24 11:01 BP 109/58 L 12/02/24 11:01 BMI result Body Mass Index 33.1 No apparent distress Nonicteric Abdomen soft, nondistended Alert and oriented x3, normal gait Assessment & Plan Assessment & Plan (1) Chronic constipation: Code(s): K59.09 - Other constipation Category: Medical (2) IBS (irritable bowel syndrome): Code(s): K58.9 - Irritable bowel syndrome, unspecified Category: Medical (3) Type 2 diabetes mellitus with unspecified complications: Code(s): E11.8 - Type 2 diabetes mellitus with unspecified complications Category: Medical Plan #Has longstanding constipation. Currently being managed with food based stimulant laxative. Advised to incorporate fiber. Add miralax as osmotic laxative. If has minimal response to this regimen, will add secretagogue. Pt aware to call office in that case. #Given BMI 33 and DM, will also screen for fatty liver. LFTs ordered to be done prior to next appt. Follow up 4 months Orders: Orders Liver Panel 4 Months E11.8 - Type 2 diabetes mellitus with unspecified complications Medications: New polyethylene glycol 3350 (Miralax) 17 grams PO DAILY 238 grams 1RF sennosides (senna) 17.2 mg (2 x 8.6 mg) PO DAILY 90 caps 1RF constipation psyllium seed (sugar) (Metamucil (sugar) oral powder) 1 tsp PO DAILY 1,254 grams 0RF Patient Instructions: Start metamucil, miralax and senna. If start having diarrhea with above discontinue senna. If have persistent diarrhea despite this, stop miralax. Keep taking metamucil. Resume miralax with the metamucil when you dont have a BM for a day. Take the senna only when no BM x 2 days. Coding Level of Care Code Est Pt Level 4 (72922) Diagnoses Chronic constipation K59.09 IBS (irritable bowel syndrome) K58.9 Type 2 diabetes mellitus with unspecified complications E11.8
[2024-12-02 11:01] VITALS: BP 109/58; PULSE 84; BMI 33.1
--- OUTSIDE RECORDS SUMMARY | 2024-12-02 13:04 | XMS_ITS | Patient Health Record ---
Author Organization [facility] Address [address] [place] [address] Care Team Providers Care Medical Lab Technologist Name Role Phone KRISTIN BARRERA Unavailable [phone] ALLERGIES No Known Allergies REASON FOR REFERRAL [...] Pure hypercholesterolemia , unspecified (E78.00) Active confirmed 596608005 Problem Gastroesophageal reflux disease without esophagitis (K21.9) Active confirmed 695143517 Problem Type 2 diabetes mellitus without complication, without long-term current use of insulin (E11.9) Active confirmed 947917018 Problem Obesity (BMI 30-39.9) (E66.9) Active confirmed 122536500 Problem BMI 35.0-35.9,adult (Z68.35) Active confirmed 425587053 Problem BMI 33.0-33.9,adult (Z68.33) Active confirmed 415920224 Problem BMI 32.0-32.9,adult (Z68.32) Active confirmed 154866578 VITAL SIGNS Heart Rate 82 /min 01/07/2024 Oximetry 99 % 01/07/2024 Blood pressure diastolic 76 mm Hg 01/07/2024 Height 61 in 01/07/2024 Blood pressure systolic 124 mm Hg 01/07/2024 Weight 170 lbs 01/07/2024 BMI 32.12 kg/m2 01/07/2024 Encounters Encounter Location Date Provider Diagnosis [facility] [address] [address] 01/07/2024 KRISTIN BARRERA Type 2 diabetes stewart [...] minimum of 6 months The most recent [place] [employer] of clinical endocrinologists and [place] [employer]in[employer] guidelines recommend patients who [...] track activity level. Consider using apps like [employer], myfitCode Scoutspal, lose it, stick as needed for self-monitoring and weight management. Consider group exercises. Consider hiring a certification engineer. Regular exercise is pickens to sustainable health [...] counseling and psychiatry and Dr Bowers at [facility]. We would like to cover regular topics [...] software and direct typing Please excuse inadvertent knitting machine fixer head or typing errors, or uncorrected word substitutions Although every attempt has been made by the provider to proofread this document, occasional misspellings and typographical errors may still be present Due to the previous pandemic, and the use of personal protective equipment (PPE) This may decrease voice recognition accuracy Inadvertent knitting machine fixer head errors may occur 01/07/2024 Obesity (BMI 30-39.9) [...] minimum of 6 months The most recent [place] [employer] of clinical endocrinologists and [place] [employer] endocrin[employer] guidelines recommend patients who [...] track activity level. Consider using apps like [employer] Cellar, Linkuriouspal, lose it, stick as needed for self-monitoring and weight management. Consider group exercises. Consider hiring a certification engineer. Regular exercise is pickens to sustainable health [...] counseling and psychiatry and Dr Bowers at [facility]. We would like to cover regular topics [...] software and direct typing Please excuse inadvertent knitting machine fixer head or typing errors, or uncorrected word substitutions Although every attempt has been made by the provider to proofread this document, occasional misspellings and typographical errors may still be present Due to the previous pandemic, and the use of personal protective equipment (PPE) This may decrease voice recognition accuracy Inadvertent knitting machine fixer head errors may occur 01/07/2024 Pure hypercholesterolemi a, [...] minimum of 6 months The most recent [place] [employer] of clinical endocrinologists and [place] [employer] endocrinology guidelines recommend patients who [...] track activity level. Consider using apps like [employer], Linkuriouspal, lose it, stick as needed for self-monitoring and weight management. Consider group exercises. Consider hiring a certification engineer. Regular exercise is pickens to sustainable health [...] counseling and psychiatry and Dr Bowers at [facility]. We would like to cover regular topics [...] software and direct typing Please excuse inadvertent knitting machine fixer head or typing errors, or uncorrected word substitutions Although every attempt has been made by the provider to proofread this document, occasional misspellings and typographical errors may still be present Due to the previous pandemic, and the use of personal protective equipment (PPE) This may decrease voice recognition accuracy Inadvertent knitting machine fixer head errors may occur 01/07/2024 Gastroesophageal reflux disease [...] minimum of 6 months The most recent [place] [employer] of clinical endocrinologists and [place] [employer] endocrinology guidelines recommend patients who [...] track activity level. Consider using apps like [employer] Cellar, myfitCode Scoutspal, lose it, stick as needed for self-monitoring and weight management. Consider group exercises. Consider hiring a certification engineer. Regular exercise is pickens to sustainable health [...] counseling and psychiatry and Dr Bowers at [facility]. We would like to cover regular topics [...] software and direct typing Please excuse inadvertent knitting machine fixer head or typing errors, or uncorrected word substitutions Although every attempt has been made by the provider to proofread this document, occasional misspellings and typographical errors may still be present Due to the previous pandemic, and the use of personal protective equipment (PPE) This may decrease voice recognition accuracy Inadvertent knitting machine fixer head errors may occur 01/07/2024 BMI 32.0-32.9,adult (ICD-10 [...] minimum of 6 months The most recent [place] [employer] of clinical endocrinologists and [place] [employer] of endocrinology guidelines recommend patients who [...] track activity level. Consider using apps like [employer] Cellar, Linkuriouspal, lose it, stick as needed for self-monitoring and weight management. Consider group exercises. Consider hiring a certification engineer. Regular exercise is pickens to sustainable health [...] counseling and psychiatry and Dr Bowers at [facility]. We would like to cover regular topics [...] software and direct typing Please excuse inadvertent knitting machine fixer head or typing errors, or uncorrected word substitutions Although every attempt has been made by the provider to proofread this document, occasional misspellings and typographical errors may still be present Due to the previous pandemic, and the use of personal protective equipment (PPE) This may decrease voice recognition accuracy Inadvertent knitting machine fixer head errors may occur PLAN OF TREATMENT No Information Insurance Providers Payer Name Payer Address Payer Phone Subscriber Number Group Number Insured Name Patient Relationship to Insured Coverage Start Date Coverage End Date [facility] [address] [place] [address] [id number] Micaela Velazquez Self - patient is the insured MEDICATIONS ADMINISTERED Medication Instructions Date of Administration Dosage Notes MICC B12 INJECTION 10/10/2022 1 MICC B12 INJECTION 01/09/2023 1 MICC B12 INJECTION 03/13/2023 MICC B12 INJECTION 05/06/2023 MEDICAL (GENERAL) HISTORY Medical History History ICD Code hyperlipidemia type II diabetes Surgical History Surgery Date(Month/Year) breast reconstruction C section
--- OUTSIDE RECORDS SUMMARY | 2024-12-02 13:04 | XMS_ITS ---
Author Organization [facility] Address [address] [place] [address] Care Team Providers Care Hot Head Machine Operator Name Role Phone KRISTIN BARRERA Unavailable [phone] Encounters Encounter Location Date Provider Diagnosis [address] [address] 06/11/2023 KRISTIN BARRERA PLAN OF TREATMENT No Information Progress Notes * Micaela VELAZQUEZDOB: [birth year] (48 yo F)Acc No.[id number]:06/11/2023 Patient:??Micaela VELAZQUEZ Provider:??KRISTIN BARRERA NP :1975?Age:47 Y?Sex:Fe male Date:06/11/2023 Address:[address] [place] [address] [place], [place] Subjective: * Chief Complaints: * ? * Medical History:?? Objective: Assessment: Plan: * Treatment: * Images: Billing Information: * Visit Code:?? * Procedure Codes:?? * Sign off status: Pending * Provider:??KRISTIN BARRERA NP Date:??06/2023
--- OUTSIDE RECORDS SUMMARY | 2024-12-02 13:04 | XMS_ITS ---
Author Organization [facility] Address [address] [place] [address] Care Team Providers Care Dictating Machine Mechanic Name Role Phone KRISTIN BARRERA Unavailable [phone] ALLERGIES No Known Allergies REASON FOR VISIT [...] y subcutaneously Please fill prescription through the [employer] co-pay card program and not through insurance [...] Problem BMI 32.0-32.9,ad ult (Z68.32) Active confirmed [id number] VITAL SIGNS Heart Rate 82 /min 01/07/2024 Blood pressure systolic 124 mm Hg 01/07/20 24 Blood pressure diastolic 76 mm Hg 024 Weight 170 lbs 01/07/2024 BMI 32.12 kg/m2 01/07/2024 Height 61 in 01/07/2024 Oximetry 99 % 01/07/2024 Encounters Encounter Location Date Provider Diagnosis [facility] [address] [facility] [address] [address] [facility] [address] [place] [address] 01/07/2024 KRISTIN BARRERA Type 2 diabetes stewart [...] minimum of 6 months The most recent [place] [employer] of clinical endocrinologists and [place] [employer] of endocrinology guidelines recommend patients who [...] track activity level. Consider using apps like Zen[employer], [employer], lose it, stick as needed for self-monitoring and weight management. Consider group exercises. Consider hiring a animal trainer supervisor. Regular exercise is pickens to sustainable health [...] counseling and psychiatry and Dr Bowers at [employer]. We would like to cover regular topics [...] software and direct typing Please excuse inadvertent appraiser timber or typing errors, or uncorrected word substitutions Although every attempt has been made by the provider to proofread this document, occasional misspellings and typographical errors may still be present Due to the previous pandemic, and the use of personal protective equipment (PPE) This may decrease voice recognition accuracy Inadvertent appraiser timber errors may occur 01/07/2024 Obesity (BMI 30-39.9) [...] minimum of 6 months The most recent [place] Association of clinical endocrinologists and [place] [employer] of endocrinology guidelines recommend patients who [...] track activity level. Consider using apps like [employer], myfitnesspal, lose it, stick as needed for self-monitoring and weight management. Consider group exercises. Consider hiring a animal trainer supervisor. Regular exercise is pickens to sustainable health [...] counseling and psychiatry and Dr Bowers at [employer]. We would like to cover regular topics [...] software and direct typing Please excuse inadvertent appraiser timber or typing errors, or uncorrected word substitutions Although every attempt has been made by the provider to proofread this document, occasional misspellings and typographical errors may still be present Due to the previous pandemic, and the use of personal protective equipment (PPE) This may decrease voice recognition accuracy Inadvertent appraiser timber errors may occur 01/07/2024 Pure hypercholesterolemi a, [...] minimum of 6 months The most recent [place] Association of clinical endocrinologists and [place] [employer] of endocrinology guidelines recommend patients who [...] track activity level. Consider using apps like [employer], myfitnesspal, lose it, stick as needed for self-monitoring and weight management. Consider group exercises. Consider hiring a animal trainer supervisor. Regular exercise is pickens to sustainable health [...] counseling and psychiatry and Dr Bowers at [employer]. We would like to cover regular topics [...] software and direct typing Please excuse inadvertent appraiser timber or typing errors, or uncorrected word substitutions Although every attempt has been made by the provider to proofread this document, occasional misspellings and typographical errors may still be present Due to the previous pandemic, and the use of personal protective equipment (PPE) This may decrease voice recognition accuracy Inadvertent appraiser timber errors may occur 01/07/2024 Gastroesophageal reflux disease [...] minimum of 6 months The most recent [place] Association of clinical endocrinologists and [place] [employer] of endocrinology guidelines recommend patients who [...] track activity level. Consider using apps like [employer], [employer], lose it, stick as needed for self-monitoring and weight management. Consider group exercises. Consider hiring a animal trainer supervisor. Regular exercise is pickens to sustainable health [...] counseling and psychiatry and Dr Bowers at [employer]. We would like to cover regular topics [...] software and direct typing Please excuse inadvertent appraiser timber or typing errors, or uncorrected word substitutions Although every attempt has been made by the provider to proofread this document, occasional misspellings and typographical errors may still be present Due to the previous pandemic, and the use of personal protective equipment (PPE) This may decrease voice recognition accuracy Inadvertent appraiser timber errors may occur 01/07/2024 BMI 32.0-32.9,adult (ICD-10 [...] minimum of 6 months The most recent [place] Association of clinical endocrinologists and [place] [employer] of endocrinology guidelines recommend patients who [...] track activity level. Consider using apps like Zenoss, myfitnesspal, lose it, stick as needed for self-monitoring and weight management. Consider group exercises. Consider hiring a animal trainer supervisor. Regular exercise is pickens to sustainable health [...] counseling and psychiatry and Dr Bowers at [employer]. We would like to cover regular topics [...] software and direct typing Please excuse inadvertent appraiser timber or typing errors, or uncorrected word substitutions Although every attempt has been made by the provider to proofread this document, occasional misspellings and typographical errors may still be present Due to the previous pandemic, and the use of personal protective equipment (PPE) This may decrease voice recognition accuracy Inadvertent appraiser timber errors may occur PLAN OF TREATMENT Medication [...] * Micaela VELAZQUEZDOB: [birth year] (48 yo F)Acc No.[id number]:01/07/2024 Patient:??Micaela VELAZQUEZ Provider:??KRISTIN BARRERA NP :1975?Age:48 Y?Sex:Fe male Date:01/07/2024 Address:[address] [place], [place] [id number] Subjective: * Chief Complaints: * ?1. 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 Consider using apps like Zenoss, [employer]pal, lose it, stick as needed for self-monitoring and weight management. Consider group exercises. Consider hiring a animal trainer supervisor. Regular exercise is pickens to sustainable health [...] counseling and psychiatry and Dr Bowers at [employer]. We would like to cover regular topics [...] software and direct typing Please excuse inadvertent appraiser timber or typing errors, or uncorrected word substitutions Although every attempt has been made by the provider to proofread this document, occasional misspellings and typographical errors may still be present Due to the previous pandemic, and the use of personal protective equipment (PPE) This may decrease voice recognition accuracy Inadvertent appraiser timber errors may occur. Plan: * Treatment: 2.??Others?? Start Mounjaro Solution Pen-injector, 5 MG/0.5ML, 5mg, Subcutaneous, weekly, 30 days, 4 Pen Needle, Refills 3.? * Images: Billing Information: * Visit Code:?? 00284 Office Visit, Est Pt., Level 4. 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 Metabolic workup: [...]
== END 2024-12-02 11:57 | disposition home or self-care (01) ==
LOC: HO.HGI 10:55
PROVIDERS: PCP Internal Medicine; Visit Provider Internal Medicine
DX: K59.09 Other constipation (principal); K58.9 Irritable bowel syndrome, unspecified; E11.8 Type 2 diabetes mellitus with unspecified complications
CPT/HCPCS: 99499

== ENCOUNTER 2025-01-21 10:53 | Outpatient (AMB) | payer OTHER, SELFPAY ==
--- NOTE | 2025-01-21 10:58 | A.OFFVIS_ITS ---
Vital Signs 01/21/25 10:59 Height 5 ft 2 in Weight 175 lb BMI 32.0 BP 118/76 Intake Visit Reasons: annual Intake Note: no concerns Digital Production Operator Required: No Information Interpreted: non-clinical & clinical Product Safety Test Engineer: Product Safety Test Engineer Present (Pamela SANZ) Accompanied by: Self / Same As Patient Allergies No Known Allergies Allergy (Verified 01/21/25 11:03) Is last menstrual period known: No HPI Comments Details: Presenting for annual exam. Complaining of urinary frequency no dysuria or incontinence. Last Pap/HPV Last Mammogram [facility] Medical History Type 2 diabetes mellitus with unspecified complications Surgical History Hx of colonoscopy History of esophagogastroduodenoscopy (EGD) History of section (~2008) History of bilateral breast reduction surgery (~2004) Family History Father Myocardial infarction Diabetes Mother Diabetes Maternal Grandfather Colon cancer Social History Household Members: Spouse and Family Housing: House Alcohol intake: never Patient Tobacco Use Status: Never used Tobacco Current occupational status: employed Current occupation: [employer] Sexual orientation: Straight/Heterosexual Gender identity: Female Female Reproductive History Menstrual Total pregnancies: 1 Full term: 1 Number of Living Children: 1 Review of Systems Const All systems reviewed & are unremarkable except as noted in HPI and below Card Reports as per HPI Resp Reports as per HPI GI Reports as per HPI and Reports no additional complaints Reports as per HPI Physical Exam Vital Signs: BMI result Body Mass Index 32.0 Const General: cooperative, healthy appearing and comfortable Chest Chest palpation & inspection: normal inspection of the chest and normal palpation of entire chest wall Breast/axilla inspection: normal inspection of the breasts and normal inspection of the axillae Breast/axilla palpation: normal palpation of the breasts, normal palpation of the axillae and no axillary lymphadenopathy Resp Effort & Inspection: normal respiratory effort Auscultation: clear to auscultation bilaterally Percussion: percussion normal Cardio Palpation: normal PMI Rate: regular rate Rhythm: regular rhythm Heart sounds: no murmurs and no rubs Peripheral pulses: Peripheral pulses 2+ throughout GI Inspection: Yes normal to inspection Palpation (GI): Soft to palpation, nontender, no guarding, not rigid and No hepatosplenomegaly present Percussion: Yes normal to percussion Auscultation: normal bowel sounds Rectal Exam - Female: deferred General: Yes bladder normal to palpation External Female Exam: No lesion Speculum Exam - Vagina: normal appearance of the vagina, normal palpation, normal vaginal discharge and not erythematous Speculum Exam - Cervix: normal appearance of the cervix and normal palpation Bimanual exam- vagina & uterus: normal bimanual exam, normal palpation, uterine size normal, bladder normal to palpation, consistency normal and normal palpation Bimanual Exam- Adnexa, other: no masses, no tenderness and Other (Right adnexal fullness) Assessment & Plan Assessment & Plan (1) Well woman exam: Code(s): Z01.419 - Encounter for gynecological examination (general) (routine) without abnormal findings Category: Medical Plan: Urine dip done in the office was negative Cotesting done. Mammogram ordered. Counseled the patient about the recommended dietary allowance of 1000 mg of Calcium & 600 IU of vitamin D. The patient was instructed to perform monthly self-breast exams and to schedule an annual exam in a year; All questions answered and the patient verbalized understanding. Instructed the patient to schedule annual exam in a year (2) Adnexal fullness: Comment: Right side Code(s): N94.9 - Unspecified condition associated with female genital organs and menstrual cycle Category: Medical Plan: Explained to the patient the finding on pelvic exam right adnexal fullness, all pelvic ultrasound ordered. Instructions given the patient to schedule a follow- up appointment within 2 weeks. All questions answered, the patient verbalized understanding Orders: Orders US pelvic and transvaginal Today N94.9 - Unspecified condition associated with female genital organs and menstrual cycle Coding Level of Care Code New Pt Prev Care 40-64y(81266) Diagnoses Well woman exam Z01.419 Adnexal fullness N94.9
[2025-01-21 10:59] VITALS: BP 118/76; BMI 32.0
== END 2025-01-21 11:39 | disposition home or self-care (01) ==
LOC: HO.HWS 10:54
PROVIDERS: PCP Internal Medicine; Visit Provider Obstetrics & Gynecology
DX: Z01.419 Encounter for gynecological examination (general) (routine) without abnormal findings (principal); N94.9 Unspecified condition associated with female genital organs and menstrual cycle
CPT/HCPCS: 99386; 99459

== ENCOUNTER 2025-01-21 10:53 | Outpatient (REF) | payer OTHER, SELFPAY ==
[2025-01-27 14:16] LABS: HPV Genotype 16 Negative (Negative); HPV Genotype 18 Negative (Negative); HPV High Risk Negative (Negative)
== END 2025-01-21 10:54 | disposition home or self-care (01) ==
LOC: HO.LNP 10:53
PROVIDERS: PCP Internal Medicine; Visit Provider Obstetrics & Gynecology
DX: Z01.419 Encounter for gynecological examination (general) (routine) without abnormal findings (principal); Z11.51 Encounter for screening for human papillomavirus (HPV); N94.9 Unspecified condition associated with female genital organs and menstrual cycle
CPT/HCPCS: 87626; 88175

== ENCOUNTER 2025-02-12 10:52 | Outpatient (REF) | payer OTHER, SELFPAY ==
--- NOTE | ~2025-02-12 | US_ITS ---
CLINICAL HISTORY: N94.9 - Unspecified condition associated with female genital organs and ... adnexa l fullness US pelvis transabdominal and transvaginal with color Doppler Comparison: None Findings: Transabdominal scanning performed for overall anatomy. Transvaginal scanning performed for additional detail. LMP: October 23, 2024 Anteverted uterus, normal size and echotexture, measuring 8.0 x 3.6 x 5.1 cm. Well defined endometrium, measuring 5.0 mm in thickness. Equivocal 1 mm endometrial cyst. The right ovary measures, 3.3 x 1.3 x 2.0 cm. Normal sonographic appearance right ovary. Normal color Doppler of the ovary. The left ovary measures, 3.1 x 1.8 x 2.5 cm. Cyst with probable reversible septation artifact measuring 2.5 x 1.7 x 2.3 cm. Normal color Doppler left ovary. No adnexal masses or fluid collections. No free fluid. Impression: 1. Uterus normal size and position. Normal thickness endometrium. 2. Normal right ovary/adnexa. 3. Probable functional cyst left ovary. This document has been electronically signed by: Navjot Gerardo MD on 02/12/2025 12:59:16
--- OUTSIDE RECORDS SUMMARY | 2025-02-12 11:48 | XMS_ITS | Patient Health Record ---
Author Organization [facility] Address [address] [place] [address] Care Team Providers Care Char Dust Cleaner And Salvager Name Role Phone KRISTIN BARRERA Unavailable [phone] ALLERGIES No Known Allergies REASON FOR REFERRAL [...] Pure hypercholesterolemia , unspecified (E78.00) Active confirmed [id number] Problem Gastroesophageal reflux disease without esophagitis (K21.9) Active confirmed [id number] Problem Type 2 diabetes mellitus without complication, without long-term current use of insulin (E11.9) Active confirmed [id number] Problem Obesity (BMI 30-39.9) (E66.9) Active confirmed 475302259 Problem BMI 35.0-35.9,adult (Z68.35) Active confirmed 161910203 Problem BMI 33.0-33.9,adult (Z68.33) Active confirmed 027945636 Problem BMI 32.0-32.9,adult (Z68.32) Active confirmed [id number] PLAN OF TREATMENT No Information Insurance Providers Payer Name Payer Address Payer Phone Subscriber Number Group Number Insured Name Patient Relationship to Insured Coverage Start Date Coverage End Date [facility] [address] [place] [phone] [id number] Micaela Velazquez Self - patient is the insured MEDICATIONS ADMINISTERED Medication Instructions Date of Administration Dosage Notes MICC B12 INJECTION 10/10/2022 1 MICC B12 INJECTION 01/09/2023 1 MICC B12 INJECTION 03/13/2023 MICC B12 INJECTION 05/06/2023 MEDICAL (GENERAL) HISTORY Medical History History ICD Code hyperlipidemia type II diabetes Surgical History Surgery Date(Month/Year) breast reconstruction C section
--- OUTSIDE RECORDS SUMMARY | 2025-02-12 11:48 | XMS_ITS ---
Author Organization [facility] Address [address] [place] [address] Care Team Providers Care Infirmary Attendant Name Role Phone KRISTIN BARRERA Unavailable [phone] ALLERGIES No Known Allergies REASON FOR VISIT [...] y subcutaneously Please fill prescription through the [employer] co-pay card program and not through insurance [...] Problem BMI 32.0-32.9,ad ult (Z68.32) Active confirmed [id number] VITAL SIGNS Blood pressure systolic 124 mm Hg 01/07/20 24 Blood pressure diastolic 76 mm Hg 024 Heart Rate 82 /min 01/07/2024 Height 61 in 01/07/2024 Weight 170 lbs 01/07/2024 BMI 32.12 kg/m2 01/07/2024 Oximetry 99 % 01/07/2024 Encounters Encounter Location Date Provider Diagnosis [facility] [address] [facility] [address] [facility] [address] [place] [address] 01/07/2024 KRISTIN BARRERA Type 2 diabetes stewart [...] minimum of 6 months The most recent [place] Association of clinical endocrinologists and [place] [employer] of endocrinology guidelines recommend patients who [...] track activity level. Consider using apps like [employer], [employer], lose it, stick as needed for self-monitoring and weight management. Consider group exercises. Consider hiring a on air personality. Regular exercise is pickens to sustainable health [...] counseling and psychiatry and Dr Bowers at [facility]. We would like to cover regular topics [...] software and direct typing Please excuse inadvertent it training specialist or typing errors, or uncorrected word substitutions Although every attempt has been made by the provider to proofread this document, occasional misspellings and typographical errors may still be present Due to the previous pandemic, and the use of personal protective equipment (PPE) This may decrease voice recognition accuracy Inadvertent it training specialist errors may occur 01/07/2024 Obesity (BMI 30-39.9) [...] minimum of 6 months The most recent [place] Association of clinical endocrinologists and [place] College of endocrinology guidelines recommend patients who [...] track activity level. Consider using apps like [employer], [employer], lose it, stick as needed for self-monitoring and weight management. Consider group exercises. Consider hiring a on air personality. Regular exercise is pickens to sustainable health [...] counseling and psychiatry and Dr Bowers at [employer]. We would like to cover regular topics [...] software and direct typing Please excuse inadvertent it training specialist or typing errors, or uncorrected word substitutions Although every attempt has been made by the provider to proofread this document, occasional misspellings and typographical errors may still be present Due to the previous pandemic, and the use of personal protective equipment (PPE) This may decrease voice recognition accuracy Inadvertent it training specialist errors may occur 01/07/2024 Pure hypercholesterolemi a, [...] minimum of 6 months The most recent [place] Association of clinical endocrinologists and [place] College of endocrinology guidelines recommend patients who [...] track activity level. Consider using apps like [employer], [employer], lose it, stick as needed for self-monitoring and weight management. Consider group exercises. Consider hiring a on air personality. Regular exercise is pickens to sustainable health [...] counseling and psychiatry and Dr Bowers at [employer]. We would like to cover regular topics [...] software and direct typing Please excuse inadvertent it training specialist or typing errors, or uncorrected word substitutions Although every attempt has been made by the provider to proofread this document, occasional misspellings and typographical errors may still be present Due to the previous pandemic, and the use of personal protective equipment (PPE) This may decrease voice recognition accuracy Inadvertent it training specialist errors may occur 01/07/2024 Gastroesophageal reflux disease [...] minimum of 6 months The most recent [place] Association of clinical endocrinologists and [place] College of endocrinology guidelines recommend patients who [...] track activity level. Consider using apps like [employer], [employer], lose it, stick as needed for self-monitoring and weight management. Consider group exercises. Consider hiring a on air personality. Regular exercise is pickens to sustainable health [...] counseling and psychiatry and Dr Bowers at [employer]. We would like to cover regular topics [...] software and direct typing Please excuse inadvertent it training specialist or typing errors, or uncorrected word substitutions Although every attempt has been made by the provider to proofread this document, occasional misspellings and typographical errors may still be present Due to the previous pandemic, and the use of personal protective equipment (PPE) This may decrease voice recognition accuracy Inadvertent it training specialist errors may occur 01/07/2024 BMI 32.0-32.9,adult (ICD-10 [...] minimum of 6 months The most recent [place] Association of clinical endocrinologists and [place] College of endocrinology guidelines recommend patients who [...] track activity level. Consider using apps like [employer], [employer], lose it, stick as needed for self-monitoring and weight management. Consider group exercises. Consider hiring a on air personality. Regular exercise is pickens to sustainable health [...] counseling and psychiatry and Dr Bowers at [employer]. We would like to cover regular topics [...] software and direct typing Please excuse inadvertent it training specialist or typing errors, or uncorrected word substitutions Although every attempt has been made by the provider to proofread this document, occasional misspellings and typographical errors may still be present Due to the previous pandemic, and the use of personal protective equipment (PPE) This may decrease voice recognition accuracy Inadvertent it training specialist errors may occur PLAN OF TREATMENT Medication [...] * Micaela VELAZQUEZDOB: [birth year] (48 yo F)Acc No.[id number]:01/07/2024 Patient:??Micaela VELAZQUEZ Provider:??KRISTIN BARRERA NP :1975?Age:48 Y?Sex:Fe male Date:01/07/2024 Address:[address] [place], [place] [id number] Subjective: * Chief Complaints: * ?1. 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 Consider using apps like [employer], [employer], lose it, stick as needed for self-monitoring and weight management. Consider group exercises. Consider hiring a on air personality. Regular exercise is pickens to sustainable health [...] counseling and psychiatry and Dr Bowers at [facility]. We would like to cover regular topics [...] software and direct typing Please excuse inadvertent it training specialist or typing errors, or uncorrected word substitutions Although every attempt has been made by the provider to proofread this document, occasional misspellings and typographical errors may still be present Due to the previous pandemic, and the use of personal protective equipment (PPE) This may decrease voice recognition accuracy Inadvertent it training specialist errors may occur. Plan: * Treatment: 2.??Others?? Start Mounjaro Solution Pen-injector, 5 MG/0.5ML, 5mg, Subcutaneous, weekly, 30 days, 4 Pen Needle, Refills 3.? * Images: Billing Information: * Visit Code:?? 69054 Office Visit, Est Pt., Level 4. 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 Metabolic workup: [...] General Examination GENERAL APPEARANCE: in no ac [place] distress, well developed, well nourished HEAD: normocephalic, [...]
== END 2025-02-12 10:53 | disposition home or self-care (01) ==
LOC: HO.US 10:52
PROVIDERS: PCP Nurse Practitioner Family; Visit Provider Obstetrics & Gynecology
DX: N94.9 Unspecified condition associated with female genital organs and menstrual cycle (principal)
CPT/HCPCS: 76830; 76856

== ENCOUNTER → 2025-02-12 10:57 | Outpatient (BNV) | payer OTHER, SELFPAY | PROVIDERS: PCP Nurse Practitioner Family; Visit Provider Radiology Diagnostic Radiology | DX: N94.9 Unspecified condition associated with female genital organs and menstrual cycle (principal); N83.292 Other ovarian cyst, left side | CPT/HCPCS: 76830; 76856 ==

== ENCOUNTER 2025-02-18 12:37 | Outpatient (REF) | payer OTHER, SELFPAY ==
[2025-02-18 13:30] LABS: Hematocrit 36.4 % (37.0-47.0); Hemoglobin 12.6 g/dl (12.0-16.0); Mean Corpuscular HGB Conc 34.6 g/dl (31.0-35.0); Mean Corpuscular Volume 86.7 fL (80.0-98.0); Mean Platelet Volume 9.6 fL (9.4-12.3); Platelet Count 308 X10*3/uL (160-400); Red Cell Distribution Width 12.5 % (11.0-16.0); White Blood Count 9.3 X10*3/uL (4.8-10.8)
[2025-02-18 14:17] LABS: HCG Quantitative < 2 mIU/mL; TSH reflex Free T4 0.75 uIU/mL (0.32-4.0)
[2025-02-19 05:18] LABS: Follicle Stimulating Hormone 6.5 mIU/mL; Lutenizing Hormone 2.9 mIU/mL
== END 2025-02-18 12:38 | disposition home or self-care (01) ==
LOC: HO.LAB 12:37
PROVIDERS: PCP Nurse Practitioner Family; Visit Provider Obstetrics & Gynecology
DX: N83.299 Other ovarian cyst, unspecified side (principal); N93.9 Abnormal uterine and vaginal bleeding, unspecified
CPT/HCPCS: 36415; 83001; 83002; 84443; 84702; 85027

== ENCOUNTER 2025-02-18 12:37 | Outpatient (AMB) | payer OTHER, SELFPAY ==
[2025-02-18 12:39] VITALS: BMI 32.0
--- NOTE | 2025-02-18 12:39 | A.OFFVIS_ITS ---
Vital Signs 02/18/25 12:39 Height 5 ft 2 in Weight 175 lb BMI 32.0 Intake Visit Reasons: Ultrasound Follow up/ wants labs for FSH Allergies No Known Allergies Allergy (Verified 01/21/25 11:03) HPI Comments Details: Presenting for follow-up regarding adnexal fullness on pelvic exam. Complaining of irregular menstrual cycles over the last few months Pelvic ultrasound done in 02/26 showed the following: LMP: October 23, 2024 Anteverted uterus, normal size and echotexture, measuring 8.0 x 3.6 x 5.1 cm. Well defined endometrium, measuring 5.0 mm in thickness. Equivocal 1 mm endometrial cyst. The right ovary measures, 3.3 x 1.3 x 2.0 cm. Normal sonographic appearance right ovary. Normal color Doppler of the ovary. The left ovary measures, 3.1 x 1.8 x 2.5 cm. Cyst with probable reversible septation artifact measuring 2.5 x 1.7 x 2.3 cm. Normal color Doppler left ovary. No adnexal masses or fluid collections. No free fluid. Last co testing in 01/26 was negative Last mammogram done at [facility] in 10/27 was negative according to the patient, no records available [facility] Medical History Type 2 diabetes mellitus with unspecified complications Surgical History Hx of colonoscopy History of esophagogastroduodenoscopy (EGD) History of section (~2008) History of bilateral breast reduction surgery (~2004) Family History Father Myocardial infarction Diabetes Mother Diabetes Maternal Grandfather Colon cancer Social History Household Members: Spouse and Family Housing: House Alcohol intake: never Patient Tobacco Use Status: Never used Tobacco Current occupational status: employed Current occupation: [employer] Sexual orientation: Straight/Heterosexual Gender identity: Female Review of Systems Const All systems reviewed & are unremarkable except as noted in HPI and below Reports as per HPI and Reports no additional complaints GI Reports no additional complaints Reports no additional complaints Physical Exam Vital Signs: BMI result Body Mass Index 32.0 Assessment & Plan Assessment & Plan (1) Complex ovarian cyst: Code(s): N83.299 - Other ovarian cyst, unspecified side Category: Medical Plan: Discussed with the patient the complex ovarian cyst by ultrasound. Discussed with the patient the Ultrasound findings, the main limitation of transvaginal ultrasonography alone as a diagnostic tool to distinguish benign from malignant masses relates to its lack of specificity and low positive predictive value for cancer. The differential diagnosis discussed with the patient includes the following but not limited to: benign and malignant gynecological and non-gynecological causes. Discussed with the patient options of treatment , including laparoscopy ovarian cystectomy/oophorectomy vs. expectant management with repeat US in repeating pelvic US in 6-12 weeks from previous US. If the ovarian complex cyst is persistent larger and / or more complex looking, will refer to gynecologic Oncology. All pros, cons, risks and benefits of each approach were discussed with the patient including but not limited to a delay in the diagnosis and treatment of ovarian cancer affecting the prognosis; The patient decided to go ahead with expectant management. Instructions given the patient to schedule a 3 months follow-up ultrasound appointment. All questions were answered & the patient verbalized understanding and agreed with the plan. (2) Abnormal uterine bleeding (AUB): Code(s): N93.9 - Abnormal uterine and vaginal bleeding, unspecified Category: Medical Plan: CBC, TSH, FSH/LH, HCG ordered. Discussed with the patient the different causes of abnormal bleeding including thyroid disorders, uterine and ovarian pathology, endometrial hyperplasia, carcinoma and other potential causes. Discussed with the patient the work up including CBC (to r/o anemia), TSH, FSH/LH, endometrial biopsy to r/o endometrial pathology. All questions answered and the patient verbalized understanding. Instructed the patient to schedule an appointment for an endometrial biopsy in 2 weeks. Orders: Orders TSH reflex Free T4 Today N93.9 - Abnormal uterine and vaginal bleeding, unspecified Follicle Stimulating Hormone Today N93.9 - Abnormal uterine and vaginal bleeding, unspecified Complete Blood Count no Diff Today N93.9 - Abnormal uterine and vaginal bleeding, unspecified HCG Quantitative Today N93.9 - Abnormal uterine and vaginal bleeding, unspecified Lutenizing Hormone Today N93.9 - Abnormal uterine and vaginal bleeding, unspecified US pelvic and transvaginal 3 Months N83.299 - Other ovarian cyst, unspecified side Coding Level of Care Code Est Pt Level 3 (67037) Diagnoses Complex ovarian cyst N83.299 Abnormal uterine bleeding (AUB) N93.9
--- OUTSIDE RECORDS SUMMARY | 2025-02-18 15:24 | XMS_ITS ---
Author Organization [facility] Address [address] [place] [address] Care Team Providers Care Rag Baler Name Role Phone KRISTIN BARRERA Unavailable [phone] ALLERGIES No Known Allergies REASON FOR VISIT [...] y subcutaneously Please fill prescription through the [employer] co-pay card program and not through insurance [...] Problem BMI 32.0-32.9,ad ult (Z68.32) Active confirmed [id number] VITAL SIGNS Blood pressure systolic 124 mm Hg 01/07/20 24 Blood pressure diastolic 76 mm Hg 024 Heart Rate 82 /min 01/07/2024 Height 61 in 01/07/2024 Weight 170 lbs 01/07/2024 BMI 32.12 kg/m2 01/07/2024 Oximetry 99 % 01/07/2024 Encounters Encounter Location Date Provider Diagnosis [facility] [address] [facility] [address] [place] [address] 01/07/2024 KRISTIN BARRERA Type 2 diabetes stewart [...] minimum of 6 months The most recent [place] Association of clinical endocrinologists and [place] [employer] of endocrinology guidelines recommend patients who [...] track activity level. Consider using apps like Clio, Rostimapal, lose it, stick as needed for self-monitoring and weight management. Consider group exercises. Consider hiring a personal attendant. Regular exercise is pickens to sustainable health [...] counseling and psychiatry and Dr Bowers at [employer]. We would like to cover regular topics [...] software and direct typing Please excuse inadvertent director of career resources or typing errors, or uncorrected word substitutions Although every attempt has been made by the provider to proofread this document, occasional misspellings and typographical errors may still be present Due to the previous pandemic, and the use of personal protective equipment (PPE) This may decrease voice recognition accuracy Inadvertent director of career resources errors may occur 01/07/2024 Obesity (BMI 30-39.9) [...] minimum of 6 months The most recent [place] [employer] of clinical endocrinologists and [place] [employer] of endocrinology guidelines recommend patients who [...] Eat Fat Get Lean by Dr Jorge Chauhdry. Self education is important in the journey [...] track activity level. Consider using apps like Clio, myfitnesspal, lose it, stick as needed for self-monitoring and weight management. Consider group exercises. Consider hiring a personal attendant. Regular exercise is pickens to sustainable health [...] counseling and psychiatry and Dr Bowers at [employer]. We would like to cover regular topics [...] software and direct typing Please excuse inadvertent director of career resources or typing errors, or uncorrected word substitutions Although every attempt has been made by the provider to proofread this document, occasional misspellings and typographical errors may still be present Due to the previous pandemic, and the use of personal protective equipment (PPE) This may decrease voice recognition accuracy Inadvertent director of career resources errors may occur 01/07/2024 Pure hypercholesterolemi a, [...] minimum of 6 months The most recent [place] [employer] of clinical endocrinologists and [place] [employer] of endocrinology guidelines recommend patients who [...] track activity level. Consider using apps like Clio, myfitnesspal, lose it, stick as needed for self-monitoring and weight management. Consider group exercises. Consider hiring a personal attendant. Regular exercise is pickens to sustainable health [...] counseling and psychiatry and Dr Bowers at [employer]. We would like to cover regular topics [...] software and direct typing Please excuse inadvertent director of career resources or typing errors, or uncorrected word substitutions Although every attempt has been made by the provider to proofread this document, occasional misspellings and typographical errors may still be present Due to the previous pandemic, and the use of personal protective equipment (PPE) This may decrease voice recognition accuracy Inadvertent director of career resources errors may occur 01/07/2024 Gastroesophageal reflux disease [...] minimum of 6 months The most recent [place] [employer] of clinical endocrinologists and [place] [employer] of endocrinology guidelines recommend patients who [...] track activity level. Consider using apps like Clio, Rostimapal, lose it, stick as needed for self-monitoring and weight management. Consider group exercises. Consider hiring a personal attendant. Regular exercise is pickens to sustainable health [...] counseling and psychiatry and Dr Bowers at [employer]. We would like to cover regular topics [...] software and direct typing Please excuse inadvertent director of career resources or typing errors, or uncorrected word substitutions Although every attempt has been made by the provider to proofread this document, occasional misspellings and typographical errors may still be present Due to the previous pandemic, and the use of personal protective equipment (PPE) This may decrease voice recognition accuracy Inadvertent director of career resources errors may occur 01/07/2024 BMI 32.0-32.9,adult (ICD-10 [...] minimum of 6 months The most recent [place] [employer] of clinical endocrinologists and [place] [employer] of endocrinology guidelines recommend patients who [...] track activity level. Consider using apps like Clio, myfitnesspal, lose it, stick as needed for self-monitoring and weight management. Consider group exercises. Consider hiring a personal attendant. Regular exercise is pickens to sustainable health [...] counseling and psychiatry and Dr Bowers at [employer]. We would like to cover regular topics [...] software and direct typing Please excuse inadvertent director of career resources or typing errors, or uncorrected word substitutions Although every attempt has been made by the provider to proofread this document, occasional misspellings and typographical errors may still be present Due to the previous pandemic, and the use of personal protective equipment (PPE) This may decrease voice recognition accuracy Inadvertent director of career resources errors may occur PLAN OF TREATMENT Medication [...] * Micaela VELAZQUEZDOB: [birth year] (48 yo F)Acc No.[id number]:01/07/2024 Patient:??Micaela VELAZQUEZ Provider:??KRISTIN BARRERA NP :1975?Age:48 Y?Sex:Fe male Date:01/07/2024 Address:[address] [place], [place] [id number] Subjective: * Chief Complaints: * ?1. 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 Consider using apps like Clio, [employer]pal, lose it, stick as needed for self-monitoring and weight management. Consider group exercises. Consider hiring a personal attendant. Regular exercise is pickens to sustainable health [...] counseling and psychiatry and Dr Bowers at [employer]. We would like to cover regular topics [...] software and direct typing Please excuse inadvertent director of career resources or typing errors, or uncorrected word substitutions Although every attempt has been made by the provider to proofread this document, occasional misspellings and typographical errors may still be present Due to the previous pandemic, and the use of personal protective equipment (PPE) This may decrease voice recognition accuracy Inadvertent director of career resources errors may occur. Plan: * Treatment: 2.??Others?? Start Mounjaro Solution Pen-injector, 5 MG/0.5ML, 5mg, Subcutaneous, weekly, 30 days, 4 Pen Needle, Refills 3.? * Images: Billing Information: * Visit Code:?? 09428 Office Visit, Est Pt., Level 4. 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 Metabolic workup: [...] General Examination GENERAL APPEARANCE: in no ac chefornak distress, well developed, well nourished HEAD: normocephalic, [...]
--- OUTSIDE RECORDS SUMMARY | 2025-02-18 15:24 | XMS_ITS | Patient Health Record ---
Author Organization [facility] Address [address] [place] [address] Care Team Providers Care Imaging Clerk Name Role Phone KRISTIN BARRERA Unavailable [phone] ALLERGIES No Known Allergies REASON FOR REFERRAL [...] Pure hypercholesterolemia , unspecified (E78.00) Active confirmed [id number] Problem Gastroesophageal reflux disease without esophagitis (K21.9) Active confirmed [id number] Problem Type 2 diabetes mellitus without complication, without long-term current use of insulin (E11.9) Active confirmed 862910947 Problem Obesity (BMI 30-39.9) (E66.9) Active confirmed [id number] Problem BMI 35.0-35.9,adult (Z68.35) Active confirmed 862973496 Problem BMI 33.0-33.9,adult (Z68.33) Active confirmed 821503009 Problem BMI 32.0-32.9,adult (Z68.32) Active confirmed [id number] PLAN OF TREATMENT No Information Insurance Providers Payer Name Payer Address Payer Phone Subscriber Number Group Number Insured Name Patient Relationship to Insured Coverage Start Date Coverage End Date [facility] [address] [place] [phone] [id number] Micaela Velazquez Self - patient is the insured MEDICATIONS ADMINISTERED Medication Instructions Date of Administration Dosage Notes MICC B12 INJECTION 10/10/2022 1 MICC B12 INJECTION 01/09/2023 1 MICC B12 INJECTION 03/13/2023 MICC B12 INJECTION 05/06/2023 MEDICAL (GENERAL) HISTORY Medical History History ICD Code hyperlipidemia type II diabetes Surgical History Surgery Date(Month/Year) breast reconstruction C section
--- OUTSIDE RECORDS SUMMARY | 2025-02-18 15:24 | XMS_ITS | Continuity of Care Document ---
Author Organization [facility] Address [address] [place] [address]- Care Team Providers Care Health Occupations Instructor Name Role Phone Thomas LIU, Bird Primary Care Physician Encounter [facility] Date(s): 10/16/24 - 02/13/25 [facility] [address] [place], [place] [address] Attending Physician: Nata Villalobos MD Referring Physician: Dany Krueger MD Encounter Type: Pre Office Visit Allergies, Adverse Reactions, Alerts No Known Allergies [...] (COVID-19) Ad26 vaccine 02/06/21 Record ed Medications BCP BCP, Refills 0, Maintenance, 03/20/19 10:58:30 AM EDT, Compound Start Date: 03/20/19 Status: Ordered Repeat number: 1 cyclobenzaprine 10 mg oral tablet 1, tablet, By Mouth, 3 times a day, PRN, # 30 tablet, Refills 3, Tot. Refills 3, Maintenance, NEEDED FOR MUSCLE SPASMS, 09/07/24 5:35:00 PM EST, Route to Pharmacy Electronically, [facility]/pharmacy #[id number], 157, cm, 09/07/24 15:11:00 EST, Height Start Date: 09/07/24 Status: Ordered Quantity: 30.0 Unit: tablet Repeat number: 4 ergocalciferol 26024 iu oral capsule 50,000 International_Units, 1, capsule, By Mouth, Every week, # 6 capsule, Refills 0, Tot. Refills 0, Maintenance, 10/30/24 4:44:00 PM EST, [id number] Partial fill upon patient request if [...] Maintenance, 09/16/20 2:42:00 PM EST, REC Powder, [facility]/pharmacy #[id number], Partial fill upon patient request, 240 [...] Quantity: 90.0 Unit: tablet Repeat number: 4 Mounjaro 5 mg/0.5 mL subcutaneous solution = 5 mg, Subcutaneous Injection, Every week, # 2 mL, 5 Refills, Maintenance, 01/13/25 11:40:00 AM EDT, [id number], 157, cm, 01/13/25 10:50:00 EDT, Height Start Date: 01/13/25 Stop Date: 06/30/25 Status: Ordered Quantity: 2.0 Unit: mL Repeat number: 6 Multivitamin Daily, 0 Refills, Maintenance, 03/20/19 10:58:17 AM EDT Start Date: 03/20/19 Status: Ordered Repeat number: 1 omeprazole 40 mg oral enteric coated capsule 1 capsule, By Mouth, Daily, # 90 capsule, 2 Refills, Maintenance, 09/07/24 5:35:00 PM EST, [facility] #[id number], 157, cm, 09/07/24 15:11:00 EST, Height Start Date: 09/07/24 Status: Ordered Quantity: 90.0 Unit: capsule Repeat number: 3 pravastatin 20 mg oral tablet 20 mg, 1, tablet, By Mouth, Daily, # 90 tablet, Refills 3, Tot. Refills 3, Maintenance, 09/07/24 5:35:00 PM EST, Route to Pharmacy Electronically, [facility]/pharmacy #[id number], Partial fill upon patient requestif the prescription is for a schedule II opioid drug., 157, cm, 09/07/24 15:11:00 EST, Height Start Date: 09/07/24 Status: Ordered Quantity: 90.0 Unit: tablet Repeat number: 4 traZODone 50 mg oral tablet 1, tablet, By Mouth, Daily at bedtime, # 90 tablet, Refills 1, Tot. Refills 1, Maintenance, :33:00 PM EST, Route to Pharmacy Electronically, [facility]/pharmacy #[id number], 157, cm, 11/19/24 13:54:00 EST, Height Start Date: 12/19/24 Status: Ordered Quantity: 90.0 Unit: tablet Repeat number: 2 Problem List Condition Confirmation Course Effective Dates Status Health Status Informant Diabetes mellitus Confirmed Active Hypercholesterolemia Confirmed Active Anxiety and depression Confirmed Active Obese class I Confirmed Active Social History Social History Type Response Smoking Status Never smoker entered on: 09/02/18 Sex Sex Representation Female (finding) Patient Care team information Care Team Personnel Name: Bird Guzman NP Position: [facility] PCO Associate Professional Member Role: PCP Address: [address] [place] [address] Telecom: Care Team Related Persons Name: CASS SANTANA Name: CASS LOZA Name: CLARE MELTON Insurance Providers Guarantor name: RAYMOND FREDERICKDERON Health Plan Information #: 1 Payer: [facility] [employer] HMO Member Number: [id number] Policy Number: NA Group Number: [id number] Health Plan Information #: 2 Payer: [facility] [employer] Member Number: [id number] Policy Number: NA Group Number: [id number]
--- OUTSIDE RECORDS SUMMARY | 2025-02-18 15:24 | XMS_ITS | Continuity of Care Document ---
Author Organization [facility] Address [address] [place] [address]- Care Team Providers Care Field Marketing Team Leader Name Role Phone Thomas LIU, Bird Primary Care Physician Encounter [facility] Date(s): 01/14/25 - 02/13/25 [facility] [address] [place], [place] [address] Attending Physician: Admtr, Ar8 Admitting Physician: Admtr, Ar8 Referring Physician: Admtr, Ar8 Encounter Type: Triage Allergies, Adverse Reactions, Alerts No Known Allergies [...] 5:35:00 PM EST, Route to Pharmacy Electronically, [facility]/pharmacy #[id number], 157, cm, 09/07/24 15:11:00 EST, Height Start Date: 09/07/24 Status: Ordered Quantity: 30.0 Unit: tablet Repeat number: 4 ergocalciferol 34495 iu oral capsule 50,000 International_Units, 1, capsule, By Mouth, Every week, # 6 capsule, Refills 0, Tot. Refills 0, Maintenance, 10/30/24 4:44:00 PM EST, [id number] fill upon patient request if [...] Maintenance, 09/16/20 2:42:00 PM EST, REC Powder, [facility]/pharmacy #[id number], Partial fill upon patient request, [...] 5 Refills, Maintenance, 01/13/25 11:40:00 AM EDT, [facility] #[id number], 157, cm, 01/13/25 10:50:00 EDT, Height Start [...] 5:35:00 PM EST, Route to Pharmacy Electronically, [facility]/pharmacy #[id number], Partial fill upon patient requestif the prescription is for a schedule II opioid drug., 157, cm, 09/07/24 15:11:00 EST, Height Start Date: 09/07/24 Status: Ordered Quantity: 90.0 Unit: tablet Repeat number: 4 traZODone 50 mg oral tablet 1, tablet, By Mouth, Daily at bedtime, # 90 tablet, Refills 1, Tot. Refills 1, Maintenance, 252:33:00 PM EST, Route to Pharmacy Electronically, [facility]/pharmacy #[id number], 157, cm, 11/19/24 13:54:00 EST, Height [...] Team Personnel Name: Bird Guzman NP Position: S PCO Associate Professional Member Role: PCP Address: [address] [place] [address] Telecom: Care Team Related Persons Name: CASS SANTANA Name: CASS LOZA Name: CLARE MELTON Insurance Providers Guarantor name: [facility] Plan Information #: 1 Payer: [facility] SELECT HMO Member Number: NA Policy Number: NA Group Number: NA
== END 2025-02-18 13:34 | disposition home or self-care (01) ==
LOC: HO.HWS 12:37
PROVIDERS: PCP Nurse Practitioner Family; Visit Provider Obstetrics & Gynecology
DX: N83.299 Other ovarian cyst, unspecified side (principal); N93.9 Abnormal uterine and vaginal bleeding, unspecified
CPT/HCPCS: 99213

== ENCOUNTER 2025-03-03 12:11 | Outpatient (REF) | payer OTHER, SELFPAY | END 2025-03-03 12:12 | disposition home or self-care (01) | LOC: HO.LNP 12:11 | PROVIDERS: PCP Nurse Practitioner Family; Visit Provider Obstetrics & Gynecology | DX: N93.9 Abnormal uterine and vaginal bleeding, unspecified (principal) | CPT/HCPCS: 58100; 81025; 88305 ==

== ENCOUNTER 2025-03-03 12:11 | Outpatient (AMB) | payer OTHER, SELFPAY ==
[2025-03-03 12:41] VITALS: BMI 32.0
--- NOTE | 2025-03-03 12:41 | MHC.OFFVIS ---
Vital Signs 03/03/25 12:41 Height 5 ft 2 in Weight 175 lb BMI 32.0 Intake Visit Reasons: EMB Disk Sander Required: No Information Interpreted: non-clinical & clinical Hog Operator: Hog Operator Present (Pamela SANZ) Accompanied by: Self / Same As Patient Allergies No Known Allergies Allergy (Verified 03/03/25 12:41) HPI Comments Details: Presenting for EMB [facility] Medical History Type 2 diabetes mellitus with unspecified complications Surgical History Hx of colonoscopy History of esophagogastroduodenoscopy (EGD) History of section (~2008) History of bilateral breast reduction surgery (~2004) Family History Father Myocardial infarction Diabetes Mother Diabetes Maternal Grandfather Colon cancer Social History Household Members: Spouse and Family Housing: House Alcohol intake: never Patient Tobacco Use Status: Never used Tobacco Current occupational status: employed Current occupation: [employer] Sexual orientation: Straight/Heterosexual Gender identity: Female Physical Exam Vital Signs: BMI result Body Mass Index 32.0 Office Procedures Endometrial Biopsy Details: The patient was counseled regarding the indication and benefits of endometrial sampling to rule out endometrial pathology including not limited to endometrial hyperplasia or endometrial cancer and others; The alternatives (Either do nothing vs. hysteroscopy D&C) & the risks were discussed with the patient including but not limited: pain, uterine perforation, bleeding, infection, possible injury to bladder, bowel, ureter, possible need for blood transfusion with all its possible risks. The patient verbalized understanding all questions answered and signed consent. Urine test done in the office was negative The patient was placed into the dorsal lithotomy position; a speculum was inserted in the vagina. Using aseptic technique for the procedure, the cervix was cleansed with Betadine. The anterior lip of the cervix was grasped with a single tooth tenaculum. The uterus was sounded to 7 cm with a 4 mm Pipelle was used. Tissues samples were obtained and placed in formalin, in a patient labeled container and sent to the pathology department. At the end of the procedure, there was minimal bleeding noted The patient tolerated the procedure well and was discharged in good condition with the following instructions: Nothing in the vagina until the bleeding stops. No sex until the bleeding stops, to call if any of the following occurs: fever (>100.4), flu-like symptoms, abdominal pain, heavy bleeding, four smelling vaginal discharge. The patient was instructed to schedule a Follow up appointment in 2 weeks to discuss pathology results of the biopsy and treatment options. This note was generated with a voice recognition program. Some errors may have been overlooked during the review of this note. Sometimes these errors may affect the content or meaning of a given sentence. 04728-Caqystkahtj Biopsy Results AMB Test Urine AMB Test Urine Negative Last Edit by Pamela Bruno CMA on 03/03/25 12:50 Results Reviewed Results Reviewed: Laboratory Last Values [facility] Clinic Negative 03/03/25 12:49 Assessment & Plan Assessment & Plan (1) Abnormal uterine bleeding (AUB): Code(s): N93.9 - Abnormal uterine and vaginal bleeding, unspecified Category: Medical Plan: EMB done, see procedure note Orders: Orders AMB HCG Urine Test Today Z32.02 - Encounter for test, result negative AMB Endometrial Biopsy Today N93.9 - Abnormal uterine and vaginal bleeding, unspecified Coding Level of Care Code Procedure Only Diagnoses Abnormal uterine bleeding (AUB) N93.9 CPT Codes Endometrial Biopsy - CPT: 04038-Knhskdbnogt Biopsy ([id number])
--- OUTSIDE RECORDS SUMMARY | 2025-03-03 13:37 | XMS_ITS | Patient Health Record ---
Author Organization [facility] Address [address] [place] [address] Care Team Providers Care Nylon Hot Wire Cutter Name Role Phone KRISTIN BARRERA Unavailable [phone] ALLERGIES No Known Allergies REASON FOR REFERRAL [...] Pure hypercholesterolemia , unspecified (E78.00) Active confirmed 300636325 Problem Gastroesophageal reflux disease without esophagitis (K21.9) Active confirmed 993404806 Problem Type 2 diabetes mellitus without complication, without long-term current use of insulin (E11.9) Active confirmed 402524764 Problem Obesity (BMI 30-39.9) (E66.9) Active confirmed 367369562 Problem BMI 35.0-35.9,adult (Z68.35) Active confirmed 219644691 Problem BMI 33.0-33.9,adult (Z68.33) Active confirmed 056269768 Problem BMI 32.0-32.9,adult (Z68.32) Active confirmed 531300763 PLAN OF TREATMENT No Information Insurance Providers Payer Name Payer Address Payer Phone Subscriber Number Group Number Insured Name Patient Relationship to Insured Coverage Start Date Coverage End Date [facility] [address] [place] [phone] [id number] Micaela Velazquez Self - patient is the insured MEDICATIONS ADMINISTERED Medication Instructions Date of Administration Dosage Notes MICC B12 INJECTION 10/10/2022 1 MICC B12 INJECTION 01/09/2023 1 MICC B12 INJECTION 03/13/2023 MICC B12 INJECTION 05/06/2023 MEDICAL (GENERAL) HISTORY Medical History History ICD Code hyperlipidemia type II diabetes Surgical History Surgery Date(Month/Year) breast reconstruction C section
--- OUTSIDE RECORDS SUMMARY | 2025-03-03 13:37 | XMS_ITS ---
Author Organization [facility] Address [address] [place] [address] Care Team Providers Care Custom Bookbinder Name Role Phone KRISTIN BARRERA Unavailable [phone] ALLERGIES No Known Allergies REASON FOR VISIT [...] y subcutaneously Please fill prescription through the [employer] co-pay card program and not through insurance [...] Problem BMI 32.0-32.9,ad ult (Z68.32) Active confirmed 734765673 VITAL SIGNS Blood pressure systolic 124 mm Hg 01/07/20 24 Blood pressure diastolic 76 mm Hg 024 Heart Rate 82 /min 01/07/2024 Height 61 in 01/07/2024 Weight 170 lbs 01/07/2024 BMI 32.12 kg/m2 01/07/2024 Oximetry 99 % 01/07/2024 Encounters Encounter Location Date Provider Diagnosis [facility] [address] [facility] [address] [place] [address] 01/07/2024 KRISTIN BARRERA Type 2 diabetes stewart [...] minimum of 6 months The most recent [place] Association of clinical endocrinologists and [place] [employer] of endocrinology guidelines recommend patients who [...] track activity level. Consider using apps like [employer], 3sunpal, lose it, stick as needed for self-monitoring and weight management. Consider group exercises. Consider hiring a personal injury legal assistant. Regular exercise is pickens to sustainable [...] counseling and psychiatry and Dr Bowers at [facility]. We would like to cover regular topics [...] software and direct typing Please excuse inadvertent perforator operator or typing errors, or uncorrected word substitutions Although every attempt has been made by the provider to proofread this document, occasional misspellings and typographical errors may still be present Due to the previous pandemic, and the use of personal protective equipment (PPE) This may decrease voice recognition accuracy Inadvertent perforator operator errors may occur 01/07/2024 Obesity (BMI [...] minimum of 6 months The most recent [place] [employer] of clinical endocrinologists and [place] [employer] of endocrinology guidelines recommend patients who [...] track activity level. Consider using apps like [employer], myfitnesspal, lose it, stick as needed for self-monitoring and weight management. Consider group exercises. Consider hiring a personal injury legal assistant. Regular exercise is pickens to sustainable [...] counseling and psychiatry and Dr Bowers at [facility]. We would like to cover regular topics [...] software and direct typing Please excuse inadvertent perforator operator or typing errors, or uncorrected word substitutions Although every attempt has been made by the provider to proofread this document, occasional misspellings and typographical errors may still be present Due to the previous pandemic, and the use of personal protective equipment (PPE) This may decrease voice recognition accuracy Inadvertent perforator operator errors may occur 01/07/2024 Pure hypercholesterolemi [...] minimum of 6 months The most recent [place] [employer] of clinical endocrinologists and [place] [employer] of endocrinology guidelines recommend patients who [...] track activity level. Consider using apps like [employer], myfitnesspal, lose it, stick as needed for self-monitoring and weight management. Consider group exercises. Consider hiring a personal injury legal assistant. Regular exercise is pickens to sustainable [...] counseling and psychiatry and Dr Bowers at [facility]. We would like to cover regular topics [...] software and direct typing Please excuse inadvertent perforator operator or typing errors, or uncorrected word substitutions Although every attempt has been made by the provider to proofread this document, occasional misspellings and typographical errors may still be present Due to the previous pandemic, and the use of personal protective equipment (PPE) This may decrease voice recognition accuracy Inadvertent perforator operator errors may occur 01/07/2024 Gastroesophageal reflux [...] minimum of 6 months The most recent [place] [employer] of clinical endocrinologists and [place] [employer] of endocrinology guidelines recommend patients who [...] track activity level. Consider using apps like [employer], [employer]sunpal, lose it, stick as needed for self-monitoring and weight management. Consider group exercises. Consider hiring a personal injury legal assistant. Regular exercise is pickens to sustainable [...] counseling and psychiatry and Dr Bowers at [facility]. We would like to cover regular topics [...] software and direct typing Please excuse inadvertent perforator operator or typing errors, or uncorrected word substitutions Although every attempt has been made by the provider to proofread this document, occasional misspellings and typographical errors may still be present Due to the previous pandemic, and the use of personal protective equipment (PPE) This may decrease voice recognition accuracy Inadvertent perforator operator errors may occur 01/07/2024 BMI 32.0-32.9,adult [...] minimum of 6 months The most recent [place] Association of clinical endocrinologists and [place] [employer] of endocrinology guidelines recommend patients who [...] track activity level. Consider using apps like [employer], myfitnesspal, lose it, stick as needed for self-monitoring and weight management. Consider group exercises. Consider hiring a personal injury legal assistant. Regular exercise is pickens to sustainable [...] counseling and psychiatry and Dr Bowers at [facility]. We would like to cover regular topics [...] software and direct typing Please excuse inadvertent perforator operator or typing errors, or uncorrected word substitutions Although every attempt has been made by the provider to proofread this document, occasional misspellings and typographical errors may still be present Due to the previous pandemic, and the use of personal protective equipment (PPE) This may decrease voice recognition accuracy Inadvertent perforator operator errors may occur PLAN OF TREATMENT Medication [...] * Micaela VELAZQUEZDOB: [birth year] (48 yo F)Acc No.[id number]:01/07/2024 Patient:??Micaela VELAZQUEZ Provider:??KRISTIN BARRERA NP :1975?Age:48 Y?Sex:Fe male Date:01/07/2024 Address:[address] [place], [place] [id number] Subjective: * Chief Complaints: * ?1. 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 Consider using apps like [employer], myfitQypepal, lose it, stick as needed for self-monitoring and weight management. Consider group exercises. Consider hiring a personal injury legal assistant. Regular exercise is pickens to sustainable [...] counseling and psychiatry and Dr Bowers at [facility]. We would like to cover regular topics [...] software and direct typing Please excuse inadvertent perforator operator or typing errors, or uncorrected word substitutions Although every attempt has been made by the provider to proofread this document, occasional misspellings and typographical errors may still be present Due to the previous pandemic, and the use of personal protective equipment (PPE) This may decrease voice recognition accuracy Inadvertent perforator operator errors may occur. Plan: * Treatment: 2.??Others?? Start Mounjaro Solution Pen-injector, 5 MG/0.5ML, 5mg, Subcutaneous, weekly, 30 days, 4 Pen Needle, Refills 3.? * Images: Billing Information: * Visit Code:?? 86183 Office Visit, Est Pt., Level 4. 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 Metabolic workup: [...] General Examination GENERAL APPEARANCE: in no ac deering distress, well developed, well nourished HEAD: normocephalic, [...]
== END 2025-03-03 13:09 | disposition home or self-care (01) ==
LOC: HO.HWS 12:11
PROVIDERS: PCP Nurse Practitioner Family; Visit Provider Obstetrics & Gynecology
DX: N93.9 Abnormal uterine and vaginal bleeding, unspecified (principal); Z32.02 Encounter for pregnancy test, result negative
CPT/HCPCS: 58100

== ENCOUNTER 2025-03-17 10:26 | Outpatient (AMB) | payer OTHER, SELFPAY ==
--- NOTE | 2025-03-17 10:26 | MHC.OFFVIS ---
Intake Visit Reasons: EMB results Allergies No Known Allergies Allergy (Verified 03/03/25 12:41) HPI Comments Details: The patient scheduled a telehealth visit for follow-up to discuss the results of her abnormal uterine bleeding workup and options of treatment. The following workup was done.: H&H= 12.6/36.4 TSH, hCG, GC and chlamydia were negative. FSH/LH= 6.5/2.9 Endometrial biopsy pathology showed the following: Mixed pattern inactive and, focally, secretory endometrium; no atypia or hyperplasia identified Co testing was done was negative. Last mammogram done at [facility] in 10/27 was negative according to the patient, no records available Pelvic ultrasound showed the following: Impression: 1. Uterus normal size and position. Normal thickness endometrium. 2. Normal right ovary/adnexa. 3. Probable functional cyst left ovary [facility] Medical History Type 2 diabetes mellitus with unspecified complications Surgical History Hx of colonoscopy History of esophagogastroduodenoscopy (EGD) History of section (~2008) History of bilateral breast reduction surgery (~2004) Family History Father Myocardial infarction Diabetes Mother Diabetes Maternal Grandfather Colon cancer Social History Household Members: Spouse and Family Housing: House Alcohol intake: never Patient Tobacco Use Status: Never used Tobacco Current occupational status: employed Current occupation: [employer] Sexual orientation: Straight/Heterosexual Gender identity: Female Review of Systems Const All systems reviewed & are unremarkable except as noted in HPI and below Reports as per HPI and Reports no additional complaints GI Reports no additional complaints Reports no additional complaints Telehealth Telehealth Telehealth Platform: Telephone Location of provider rendering services: practice address Location of patient: address on file Patient Identification confirmed using: Name, : Yes Telehealth method: video Patient verbally consented to treatment: Yes Patient verbally consented to billing insurance company: Yes Patient informed of any privacy concerns related to visit: Yes Minutes spent on Phone/Video with Pt.: 5 Assessment & Plan Assessment & Plan (1) Abnormal uterine bleeding (AUB): Code(s): N93.9 - Abnormal uterine and vaginal bleeding, unspecified Category: Medical Plan: Discussed with the patient the results of the work up done and options of treatment including Lysteda, BCP's, Mirena IUD, endometrial ablation and hysterectomy. All pros, cons, risks and benefits if each option was discussed with the patient and the patient decided to think about it and get back to us. All questions answered the patient verbalized understanding. I spent a total of 20 minutes reviewing the chart, talking to the patient via video and documenting in the medical record. Coding Level of Care Code Tele Est Pt Level 3 (47740) Diagnoses Abnormal uterine bleeding (AUB) N93.9
--- OUTSIDE RECORDS SUMMARY | 2025-03-17 11:26 | XMS_ITS | Patient Health Record ---
Author Organization [facility] Address [address] [place] [address] Care Team Providers Care Construction Controller Name Role Phone KRISTIN BARRERA Unavailable [phone] Allergies No Known Allergies Reason For Referral No Information Medications Medication SIG (Take, Route, Frequency, Duration) Notes [...] wee kly for 30 days 01/07/2024 Active Social History Tobacco Use: Social History Observation Description Date Details (start date - stop date) Never Smoker NA - NA Tobacco Use/Smoking Question Answer Notes Are you a nonsmoker Problems Problem Type SNOMED Code ICD Code Onset Dates Problem Status W/U Status Risk Notes Problem 541933591 Pure hypercholesterolemia , unspecified (E78.00) Active confirmed Problem 708184975 Gastroesophageal reflux disease without esophagitis (K21.9) Active confirmed Problem 187671753 Type 2 diabetes mellitus without complication, without long-term current use of insulin (E11.9) Active confirmed Problem 437000860 Obesity (BMI 30-39.9) (E66.9) Active confirmed Problem 882194684 BMI 35.0-35.9,ad ult (Z68.35) Active confirmed Problem 791434911 BMI 33.0-33.9,ad ult (Z68.33) Active confirmed Problem 087505129 BMI 32.0-32.9,ad ult (Z68.32) Active confirmed Plan Of Treatment No Information Insurance Providers Payer Name Payer Address Payer Phone Subscriber Number Group Number Insured Name Patient Relationship to Insured Coverage Start Date Coverage End Date [facility] [address] [place] [address] [phone] [id number] Micaela Velazquez Self - patient is the insured Medications Administered Medication Instructions Date of Administration Dosage Notes MICC B12 INJECTION 10/10/2022 1 MICC B12 INJECTION 01/09/2023 1 MICC B12 INJECTION 03/13/2023 MICC B12 INJECTION 05/06/2023 Medical (General) History Medical History History ICD Code hyperlipidemia type II diabetes Surgical History Surgery Date(Month/Year) breast reconstruction C section
== END 2025-03-17 11:00 | disposition home or self-care (01) ==
LOC: HO.HWS 10:26
PROVIDERS: PCP Nurse Practitioner Family; Visit Provider Obstetrics & Gynecology
DX: N93.9 Abnormal uterine and vaginal bleeding, unspecified (principal)
CPT/HCPCS: 99213

== ENCOUNTER 2025-05-14 11:04 | Outpatient (REF) | payer OTHER, SELFPAY ==
--- NOTE | ~2025-05-14 | US_ITS ---
CLINICAL HISTORY: N83.299 - Other ovarian cyst, unspecified side US pelvis transabdominal and transvaginal with color Doppler Comparison: US - US PELVIC AND TRANSVAGINAL - 02/12/25 11:09 EDT Findings: Transabdominal scanning performed for overall anatomy. Transvaginal scanning performed for additional detail. LMP: Early may Anteverted uterus, normal size and echotexture, measuring 7.8 x 3.4 x 4.5 cm. Incidental nabothian cysts. Well defined endometrium, measuring 10 mm in thickness. The right ovary measures, 2.4 x 1.3 x 1.9 cm. Normal sonographic appearance right ovary. The left ovary measures, 1.8 x 1.1 x 1.6 cm. Normal sonographic appearance left ovary. No adnexal masses or fluid collections. No free fluid Impression: 1. Normal pelvic ultrasound This document has been electronically signed by: Navjot Gerardo MD on 05/15/2025 15:16:45
--- OUTSIDE RECORDS SUMMARY | 2025-05-14 11:41 | XMS_ITS | Patient Health Record ---
Author Organization [facility] [address] Address [address] [place] [address] Care Team Providers Care Yarder Boss Name Role Phone KRISTIN BARRERA Unavailable [phone] Allergies No Known Allergies Reason For Referral [...] insurance Prior authorization NOTrequired Diagnosis e11.9 Subcutaneous weekly; Duration: 30 days Active MiraLax 17 GM 1 packet mixed with 8 ounces of fluid Orally Once a day; Duration: 30 day(s) Activ e Mounjaro 5 MG/0.5ML 5mg Subcutaneous wee kly; Duration: 30 days 01/07/2024 Active Social History Tobacco Use: Social History Observation Description Date Details (start date - stop date) Never Smoker NA - NA Tobacco Use/Smoking Question Answer Notes Are you a nonsmoker Problems Problem Type SNOMED Code ICD Code Onset Dates Problem Status W/U Status Risk Notes Problem Pure hypercholesterolemia (943826198) Pure hypercholesterolem ia, unspecified (E78.00) Active confirmed Problem Gastroesophageal reflux disease without esophagitis (405201496) Gastroesophageal reflux disease without esophagitis (K21.9) Active confirmed Problem Type II diabetes mellitus without complication (016400618) Type 2 diabetes mellitus without complication, without long-term current use of insulin (E11.9) Active confirmed Problem Obesity (066480372) Obesity (BMI 30-39.9) (E66.9) Active confirmed Problem Obese class II (999177479384418) BMI 35.0-35.9,adult (Z68.35) Active confirmed Problem Obese class I (521506621588141) BMI 33.0-33.9,adult (Z68.33) Active confirmed Problem BMI 30+ - obesity (779014765) BMI 32.0-32.9,adult (Z68.32) Active confirmed Plan Of Treatment No Information Insurance Providers Payer Name Payer Address Payer Phone Subscriber Number Group Number Insured Name Patient Relationship to Insured Coverage Start Date Coverage End Date [facility] [address] [place] [address] [id number] Micaela Velazquez Self - patient is the insured Medications Administered Medication Instructions Date of Administration Dosage Notes MICC B12 INJECTION 10/10/2022 1 MICC B12 INJECTION 01/09/2023 1 MICC B12 INJECTION 03/13/2023 MICC B12 INJECTION 05/06/2023 Medical (General) History Medical History History ICD Code hyperlipidemia type II diabetes Surgical History Surgery Date(Month/Year) breast reconstruction C section
== END 2025-05-14 11:05 | disposition home or self-care (01) ==
LOC: HO.US 11:04
PROVIDERS: PCP Nurse Practitioner Family; Visit Provider Obstetrics & Gynecology
DX: N83.299 Other ovarian cyst, unspecified side (principal)
CPT/HCPCS: 76830; 76856

== ENCOUNTER → 2025-05-14 11:06 | Outpatient (BNV) | payer OTHER, SELFPAY | PROVIDERS: PCP Nurse Practitioner Family; Visit Provider Radiology Diagnostic Radiology | DX: N88.8 Other specified noninflammatory disorders of cervix uteri (principal) | CPT/HCPCS: 76830; 76856 ==

== ENCOUNTER 2025-05-20 11:22 | Outpatient (AMB) | payer OTHER, SELFPAY ==
--- NOTE | 2025-05-20 11:22 | A.OFFVIS_ITS ---
Intake Visit Reasons: ultrasound results Allergies No Known Allergies Allergy (Verified 03/03/25 12:41) HPI Comments Details: The patient is scheduled tele health visit regarding follow-up ultrasound for previously seen left complex ovarian cyst on ultrasound in 02/26. Ultrasound done in 05/28 showed the following: Transabdominal scanning performed for overall anatomy. Transvaginal scanning performed for additional detail. LMP: Early may Anteverted uterus, normal size and echotexture, measuring 7.8 x 3.4 x 4.5 cm. Incidental nabothian cysts. Well defined endometrium, measuring 10 mm in thickness. The right ovary measures, 2.4 x 1.3 x 1.9 cm. Normal sonographic appearance right ovary. The left ovary measures, 1.8 x 1.1 x 1.6 cm. Normal sonographic appearance left ovary. No adnexal masses or fluid collections. No free fluid Impression: 1. Normal pelvic ultrasound [facility] Medical History Type 2 diabetes mellitus with unspecified complications Surgical History Hx of colonoscopy History of esophagogastroduodenoscopy (EGD) History of section (~2008) History of bilateral breast reduction surgery (~2004) Family History Father Myocardial infarction Diabetes Mother Diabetes Maternal Grandfather Colon cancer Social History Household Members: Spouse and Family Housing: House Alcohol intake: never Patient Tobacco Use Status: Never used Tobacco Current occupational status: employed Current occupation: [employer] Sexual orientation: Straight/Heterosexual Gender identity: Female Review of Systems Const All systems reviewed & are unremarkable except as noted in HPI and below Reports as per HPI and Reports no additional complaints GI Reports no additional complaints Reports no additional complaints Telehealth Telehealth Telehealth Platform: [facility] Location of provider rendering services: practice address Location of patient: address on file Patient Identification confirmed using: Name, : Yes Telehealth method: video Patient verbally consented to treatment: Yes Patient verbally consented to billing insurance company: Yes Patient informed of any privacy concerns related to visit: Yes Minutes spent on Phone/Video with Pt.: 9 Assessment & Plan Assessment & Plan (1) Complex ovarian cyst: Code(s): N83.299 - Other ovarian cyst, unspecified side Category: Medical Plan: Discussed with the patient ultrasound findings showing the previously identified complex cyst has resolved. The patient was instructed to call if symptoms recur. All questions were answered the patient verbalized understanding. I spent a total of 20 minutes reviewing the chart, talking to the patient via video and documenting in the medical record. Coding Level of Care Code Tele Est Pt Level 3 (72672) Diagnoses Complex ovarian cyst N83.299
--- OUTSIDE RECORDS SUMMARY | 2025-05-20 12:11 | XMS_ITS | Patient Health Record ---
Author Organization [facility] [address] Address [address] [place] [address] Care Team Providers Care Electronic Service Technician Name Role Phone KRISTIN BARRERA Unavailable [phone] Allergies No Known Allergies Reason For Referral [...] W/U Status Risk Notes Problem Pure hypercholesterolemia (991385521) Pure hypercholesterolem ia, unspecified (E78.00) Active confirmed Problem Gastroesophageal reflux disease without esophagitis (799578829) Gastroesophageal reflux disease without esophagitis (K21.9) Active confirmed Problem Type II diabetes mellitus without complication (165079067) Type 2 diabetes mellitus without complication, without long-term current use of insulin (E11.9) Active confirmed Problem Obesity (228200686) Obesity (BMI 30-39.9) (E66.9) Active confirmed Problem Obese class II (265896196572378) BMI 35.0-35.9,adult (Z68.35) Active confirmed Problem Obese class I (776685872991493) BMI 33.0-33.9,adult (Z68.33) Active confirmed Problem BMI 30+ - obesity (634664674) BMI 32.0-32.9,adult (Z68.32) Active confirmed Plan Of Treatment No Information Insurance Providers Payer Name Payer Address Payer Phone Subscriber Number Group Number Insured Name Patient Relationship to Insured Coverage Start Date Coverage End Date [facility] [address] [place] [address] [id number] Micaela Velazquez Self - patient is the insured Medications Administered Medication Instructions Date of Administration Dosage Notes MICC B12 INJECTION 10/10/2022 1 MICC B12 INJECTION 01/09/2023 1 MICC B12 INJECTION 03/13/2023 MICC B12 INJECTION 05/06/2023 Medical (General) History Medical History History ICD Code hyperlipidemia type II diabetes Surgical History Surgery Date(Month/Year) breast reconstruction C section
== END 2025-05-20 11:40 | disposition home or self-care (01) ==
LOC: HO.HWS 11:22
PROVIDERS: PCP Nurse Practitioner Family; Visit Provider Obstetrics & Gynecology
DX: N83.299 Other ovarian cyst, unspecified side (principal)
CPT/HCPCS: 99213

== ENCOUNTER 2025-06-15 10:02 | Outpatient (REF) | payer OTHER, SELFPAY ==
--- NOTE | ~2025-06-15 | FL_ITS ---
EXAMINATION: XR BARIUM SWALLOW CLINICAL INFORMATION: Gastroesophageal reflux disease without esophagitis COMPARISON: None available. TECHNIQUE: Upright barium swallow was performed with thick barium and barium coated saltine crackers. Thin barium was administered in prone lying position. FINDINGS: Following oral administration of thick barium an upright views there is normal perfusion bolus from the oral cavity through the pharynx, esophagus into stomach without obstruction, narrowing or stricture. On oral administration of barium coated saltine crackers is normal oral mastication and propagation bolus from the oral cavity through the pharynx, esophagus into stomach. No laryngeal penetration and aspiration seen. No major retention seen in the valleculae or piriform sinuses. On oral administration of thin barium in prone lying position there is no intraluminal filling defect or extrinsic compression. A small sliding hiatal hernia is noted. No gastroesophageal reflux seen. FLUOROSCOPY TIME: 1 minute 56 seconds DOSE AREA PRODUCT: 1184 uGy-m2 (microgray-meter squared) FL/FL barium swallow IMPRESSION: Small sliding hiatal hernia otherwise unremarkable barium swallow exam. Electronically signed by: Berry Pritchett MD 06/15/2025 02:08 PM EDT
--- OUTSIDE RECORDS SUMMARY | 2025-06-15 10:58 | XMS_ITS | Patient Health Record ---
Author Organization [facility] [address] Address [address] [place] [address] Care Team Providers Care Offal Separator Name Role Phone KRISTIN BARRERA Unavailable [phone] Allergies No Known Allergies Reason For Referral [...] W/U Status Risk Notes Problem Pure hypercholesterolemia (484622381) Pure hypercholesterolem ia, unspecified (E78.00) Active confirmed Problem Gastroesophageal reflux disease without esophagitis (558046361) Gastroesophageal reflux disease without esophagitis (K21.9) Active confirmed Problem Type II diabetes mellitus without complication (365761270) Type 2 diabetes mellitus without complication, without long-term current use of insulin (E11.9) Active confirmed Problem Obesity (356513254) Obesity (BMI 30-39.9) (E66.9) Active confirmed Problem Obese class II (622671477606067) BMI 35.0-35.9,adult (Z68.35) Active confirmed Problem Obese class I (930539780405579) BMI 33.0-33.9,adult (Z68.33) Active confirmed Problem BMI 30+ - obesity (638417264) BMI 32.0-32.9,adult (Z68.32) Active confirmed Plan Of Treatment No Information Insurance Providers Payer Name Payer Address Payer Phone Subscriber Number Group Number Insured Name Patient Relationship to Insured Coverage Start Date Coverage End Date [facility] [address] [place] [address] [id number] Micaela Velazquez Self - patient is the insured Medications Administered Medication Instructions Date of Administration Dosage Notes MICC B12 INJECTION 10/10/2022 1 MICC B12 INJECTION 01/09/2023 1 MICC B12 INJECTION 03/13/2023 MICC B12 INJECTION 05/06/2023 Medical (General) History Medical History History ICD Code hyperlipidemia type II diabetes Surgical History Surgery Date(Month/Year) breast reconstruction C section
== END 2025-06-15 10:03 | disposition home or self-care (01) ==
LOC: HO.XRAY 10:02
PROVIDERS: PCP Nurse Practitioner Family; Visit Provider Internal Medicine
DX: K21.9 Gastro-esophageal reflux disease without esophagitis (principal)
CPT/HCPCS: 74220

== ENCOUNTER → 2025-06-15 10:06 | Outpatient (BNV) | payer OTHER, SELFPAY | PROVIDERS: PCP Nurse Practitioner Family; Visit Provider Radiology Diagnostic Radiology | DX: K44.9 Diaphragmatic hernia without obstruction or gangrene (principal) | CPT/HCPCS: 74246 ==

== ENCOUNTER 2025-07-14 09:12 | Outpatient (AMB) | payer OTHER, SELFPAY ==
--- NOTE | 2025-07-14 09:15 | A.OFFVIS_ITS ---
Vital Signs 07/14/25 09:17 Height 5 ft 2 in Weight 174 lb 2.643 oz BMI 31.9 BP 113/75 Blood Pressure Location Lt brachial Position Sitting Pulse 77 Intake Visit Reasons: f/u BA swallow Intake Note: Micaela presents in the office as a BA swallow follow up. CC: She states that she was very concerned for this appt - has a right sided flank pain that is freaking her out. She states that she should be going to the ED for it but she is stressing about it. Allergies No Known Allergies Allergy (Verified 03/03/25 12:41) HPI Comments Details: 48 y.o F who is here for constipation follow up. Reports sx started around Sep 2020 after she had covid-19. Right after covid-19 she had chronic diarrhea x 6-7 months. Had work up done in [address] [facility]. BM remained loose up until Nov 2022 - reports starting Mounjaro 2.5 in Oct. Eventually stopped it in Aug 2023 becuase the constipation was severe. Constipation is described as 3-4 BMs/week with prunelax. Prior to starting prunelax was having 1 BM/week which was hard and small jesse. No blood in stool. Apart from prunelax also takes metamucil. 11/2020: normal duo and colo bx. Fam hx: Mat grandfather with CRC dx at 61 y.o Mother: polyps 07/14/25: Here for follow up. Reports R sided flank pain that has been ongoing since April with chills, night sweats and increased urinary frequency. She is quite stressed about this as her was recently diagnosed with spine tumor for which she has been going to [place] for evaluation. No N,V, unintentional change in weight or bowels. She is getting an MRI of her spine next week. Otherwise from constipation standpoint, she is doing well. Taking metamucil and senna daily. Occ takes miralax. Has regular BMs without any straining or blood in stool. [facility] Medical History Type 2 diabetes mellitus with unspecified complications Surgical History Hx of colonoscopy History of esophagogastroduodenoscopy (EGD) History of section (~2008) History of bilateral breast reduction surgery (~2004) Family History Father Myocardial infarction Diabetes Mother Diabetes Maternal Grandfather Colon cancer Social History Household Members: Spouse and Family Housing: House Alcohol intake: never Patient Tobacco Use Status: Never used Tobacco Current occupational status: employed Current occupation: [employer] Sexual orientation: Straight/Heterosexual Gender identity: Female Review of Systems Const All systems reviewed & are unremarkable except as noted in HPI and below Physical Exam Exam Exam: No apparent distress Nonicteric Abdomen soft, nondistended Alert and oriented x3, normal gait Vital Signs: Last Vital Signs Pulse 77 07/14/25 09:17 BP 113/75 07/14/25 09:17 BMI result Body Mass Index 31.9 Assessment & Plan Assessment & Plan (1) Abdominal pain: Code(s): R10.9 - Unspecified abdominal pain Category: Medical (2) Increased urinary frequency: Code(s): R35.0 - Frequency of micturition Category: Medical (3) Chills: Code(s): R68.83 - Chills (without fever) Category: Medical (4) Chronic constipation: Code(s): K59.09 - Other constipation Category: Medical (5) IBS (irritable bowel syndrome): Code(s): K58.9 - Irritable bowel syndrome, unspecified Category: Medical Plan # R sided flank pain Also with some urinary complaints night sweats and chills. Reportedly dipstick at PCP office was normal. Plan: - CT abd/pel with contrast #Has longstanding constipation 2/2 IBS-C. Currently well managed. Plan: - Cont daily fiber - Take miralax daily - Take senna only as needed Follow up 6 months Orders: Orders CT abdomen pelvis w IV con Today R10.9 - Unspecified abdominal pain, R35.0 - Frequency of micturition, R68.83 - Chills (without fever) Medications: Changed From omeprazole 40 mg PO DAILY To omeprazole 20 mg PO DAILY 90 caps 1RF 90 days Refilled polyethylene glycol 3350 (Miralax) 17 grams PO DAILY 238 grams 1RF sennosides (senna) 17.2 mg (2 x 8.6 mg) PO DAILY 180 tabs 0RF for constipation Coding Level of Care Code Est Pt Level 4 (04520) Diagnoses Abdominal pain R10.9 Increased urinary frequency R35.0 Chills R68.83 Chronic constipation K59.09 IBS (irritable bowel syndrome) K58.9
[2025-07-14 09:17] VITALS: BP 113/75; PULSE 77; BMI 31.9
--- OUTSIDE RECORDS SUMMARY | 2025-07-14 10:55 | XMS_ITS | Patient Health Record ---
Author Organization [facility] [address] Address [address] [place] [address] Care Team Providers Care Discharge Specialist Name Role Phone KRISTIN BARRERA Unavailable [phone] Allergies No Known Allergies Reason For Referral [...] W/U Status Risk Notes Problem Pure hypercholesterolemia (781827617) Pure hypercholesterolem ia, unspecified (E78.00) Active confirmed Problem Gastroesophageal reflux disease without esophagitis (638622415) Gastroesophageal reflux disease without esophagitis (K21.9) Active confirmed Problem Type II diabetes mellitus without complication (199942891) Type 2 diabetes mellitus without complication, without long-term current use of insulin (E11.9) Active confirmed Problem Obesity (750560526) Obesity (BMI 30-39.9) (E66.9) Active confirmed Problem Obese class II (301750318197389) BMI 35.0-35.9,adult (Z68.35) Active confirmed Problem Obese class I (079134582305020) BMI 33.0-33.9,adult (Z68.33) Active confirmed Problem BMI 30+ - obesity (701539229) BMI 32.0-32.9,adult (Z68.32) Active confirmed Plan Of Treatment No Information Insurance Providers Payer Name Payer Address Payer Phone Subscriber Number Group Number Insured Name Patient Relationship to Insured Coverage Start Date Coverage End Date [facility] [address] [place] [address] [phone] [id number] Micaela Velazquez Self - patient is the insured Medications Administered Medication Instructions Date of Administration Dosage Notes MICC B12 INJECTION 10/10/2022 1 MICC B12 INJECTION 01/09/2023 1 MICC B12 INJECTION 03/13/2023 MICC B12 INJECTION 05/06/2023 Medical (General) History Medical History History ICD Code hyperlipidemia type II diabetes Surgical History Surgery Date(Month/Year) breast reconstruction C section
== END 2025-07-14 09:43 | disposition home or self-care (01) ==
LOC: HO.HGI 09:13
PROVIDERS: PCP Nurse Practitioner Family; Visit Provider Internal Medicine
DX: R10.9 Unspecified abdominal pain (principal); R35.0 Frequency of micturition; R68.83 Chills (without fever); K59.09 Other constipation; K58.9 Irritable bowel syndrome, unspecified
CPT/HCPCS: 99214

== ENCOUNTER 2025-07-20 14:23 | Outpatient (REF) | payer OTHER, SELFPAY ==
--- NOTE | ~2025-07-20 | CT_ITS ---
EXAMINATION: CT ABDOMEN PELVIS WITH IV CONTRAST HISTORY: R10.9 - Unspecified abdominal pain COMPARISON: There are no prior studies for available comparison. TECHNIQUE: CT scan of the abdomen and pelvis was performed following administration of 85 mL Omnipaque 350 using standard departmental protocol. Coronal and sagittal reformatted images were generated and reviewed. Oral contrast material was not administered at the request of the referring physician. This CT exam was performed with one or more of the following dose reduction techniques: automated exposure control, adjustment of the mA and/or kV according to patient size, use of iterative reconstruction technique. DLP: 497 mGy-cm FINDINGS: LOWER CHEST: The visualized lung bases are clear. There is no pleural effusion. CARDIOVASCULATURE: The heart is normal in size. There is no pericardial effusion. LIVER: The liver is normal in size and contour. No liver mass is identified. The hepatic and portal veins are patent. GALLBLADDER / BILE DUCTS: The gallbladder is unremarkable. There is no intra or extrahepatic biliary ductal dilatation. SPLEEN: The spleen is normal in size. No focal splenic lesion is identified. PANCREAS: The pancreas is unremarkable in appearance. ADRENAL GLANDS: Within normal limits. KIDNEYS/RETROPERITONEUM: No renal calculi are identified. There is no hydronephrosis. No renal masses are identified. LYMPH NODES: No abdominal or pelvic lymphadenopathy. VASCULATURE: The abdominal aorta is normal in caliber. MESENTERY/PERITONEUM: No free fluid. No masses. There is no free intraperitoneal gas. STOMACH: There is a small hiatal hernia. The stomach is otherwise unremarkable. SMALL BOWEL: The small bowel is normal in caliber. COLON: The colon is unremarkable. APPENDIX: Normal. URINARY BLADDER/PELVIC ORGANS: The urinary bladder is collapsed, limiting evaluation. The uterus is unremarkable. BONES / SOFT TISSUES: There is degenerative disc disease at L5-S1. CT/CT abdomen pelvis w IV con IMPRESSION: Small hiatal hernia. Otherwise unremarkable contrast-enhanced CT of the abdomen and pelvis. Electronically signed by: Karel Michaels MD 07/20/2025 03:36 PM EDT
[2025-07-20] MEDS: iohexoL 350 MG/ML 100 ML INFUS..BTL 85 ML IV (15:35)
[2025-07-20 16:34] LABS: Creatinine POC 0.7 mg/dL (0.5-1.4); GFR POC > 60
--- OUTSIDE RECORDS SUMMARY | 2025-07-20 18:08 | XMS_ITS | Patient Health Record ---
Author Organization [facility] [address] Address [address] [place] [address] Care Team Providers Care Senior Care Assistant Name Role Phone KRISTIN BARRERA Unavailable [phone] Allergies No Known Allergies Reason For Referral [...] W/U Status Risk Notes Problem Pure hypercholesterolemia (917775545) Pure hypercholesterolem ia, unspecified (E78.00) Active confirmed Problem Gastroesophageal reflux disease without esophagitis (035110151) Gastroesophageal reflux disease without esophagitis (K21.9) Active confirmed Problem Type II diabetes mellitus without complication (902749318) Type 2 diabetes mellitus without complication, without long-term current use of insulin (E11.9) Active confirmed Problem Obesity (660225701) Obesity (BMI 30-39.9) (E66.9) Active confirmed Problem Obese class II (170086409580537) BMI 35.0-35.9,adult (Z68.35) Active confirmed Problem Obese class I (768747646186852) BMI 33.0-33.9,adult (Z68.33) Active confirmed Problem BMI 30+ - obesity (848582746) BMI 32.0-32.9,adult (Z68.32) Active confirmed Plan Of Treatment No Information Insurance Providers Payer Name Payer Address Payer Phone Subscriber Number Group Number Insured Name Patient Relationship to Insured Coverage Start Date Coverage End Date [facility] [address] [place] [address] [phone] [id number] Micaela Velazquez Self - patient is the insured Medications Administered Medication Instructions Date of Administration Dosage Notes MICC B12 INJECTION 10/10/2022 1 MICC B12 INJECTION 01/09/2023 1 MICC B12 INJECTION 03/13/2023 MICC B12 INJECTION 05/06/2023 Medical (General) History Medical History History ICD Code hyperlipidemia type II diabetes Surgical History Surgery Date(Month/Year) breast reconstruction C section
== END 2025-07-20 14:24 | disposition home or self-care (01) ==
LOC: HO.CT 14:23
PROVIDERS: PCP Nurse Practitioner Family; Visit Provider Internal Medicine
DX: R10.9 Unspecified abdominal pain (principal); R35.0 Frequency of micturition; R68.83 Chills (without fever)
CPT/HCPCS: 74177; 82565; Q9967

== ENCOUNTER → 2025-07-20 14:25 | Outpatient (BNV) | payer OTHER, SELFPAY | PROVIDERS: PCP Nurse Practitioner Family; Visit Provider Radiology Diagnostic Radiology | DX: K44.9 Diaphragmatic hernia without obstruction or gangrene (principal) | CPT/HCPCS: 74177 ==

== ENCOUNTER 2025-07-26 07:52 | Emergency (ER) | payer OTHER, SELFPAY ==
[2025-07-26 07:59] VITALS: BP 126/77; PULSE 84; RESP 16; TEMP 36.4; O2SAT 100; BMI 31.1
--- NOTE | 2025-07-26 08:44 | ED_ITS ---
HPI - General Adult General Chief complaint: Abdominal Pain Stated complaint: Radiating pain on R side of the body Time Seen by Provider: 07/26/25 08:07 Source: patient Mode of arrival: ambulatory Limitations: no limitations History of Present Illness ED Provider: Marcelino Pickett HPI narrative: 49 yold female who is in perimneopause, IBS, and DM presents to the ED for intermittent right flank / right lower back pain radiating down right groin and increased urinary frequency since April. patient denies any vaginal discharge vaginal bleeding, fever, chill, IV drug use, or any urinary/ bowel incontinence. Patient states back pain is worse on movement. Related Data Home Medications ?Medication ?Instructions ?Recorded ?Confirmed trazodone 50 mg tablet 50 mg PO BEDTIME 03/29/22 ergocalciferol (vitamin D2) 1,250 PO 12/02/24 mcg (50,000 unit) capsule naproxen 500 mg tablet mg PO 12/02/24 pravastatin 20 mg tablet mg PO DAILY 12/02/24 metformin 500 mg tablet,extended 500 mg PO DAILY 07/14 release 24 hr Previous Rx's ?Medication ?Instructions ?Recorded psyllium seed (sugar) oral powder 1 tsp PO DAILY #1,25 4 grams 12/02/24 (Metamucil (sugar) oral powder) omeprazole 20 mg capsule,delayed 20 mg PO DAILY 90 day s #90 caps 07/14/25 release polyethylene glycol 3350 17 17 g PO DAILY #238 grams 0 07/14/25 gram/dose oral powder (Miralax) sennosides 8.6 mg tablet (senna) 17.2 mg (2 x 8.6 mg) PO DAILY for 07/14/25 constipation #180 tabs cyclobenzaprine 10 mg tablet 10 mg PO TID PRN muscle s pasm #21 07/26/25 tabs lidocaine 4 % topical patch 1 patch topical DAILY PRN pain #15 07/26/25 ea naproxen 500 mg tablet 500 mg PO BID PRN pain #14 t abs 07/26/25 Allergies Allergy/AdvReac Type Severity Reaction Status Date / Time No Known Allergies Allergy Verified 07/26/25 08:01 Review of Systems 2 Review of Systems: Right flank right lower back pain radiating down right groin with increased urinary frequency Yes all other systems are reviewed and are negative PMFSH Past Medical History Medical History Type 2 diabetes mellitus with unspecified complications Surgical History Hx of colonoscopy History of esophagogastroduodenoscopy (EGD) History of section (~2008) History of bilateral breast reduction surgery (~2004) Family History Family History Father Myocardial infarction Diabetes Mother Diabetes Maternal Grandfather Colon cancer Social History Social History Household Members: Spouse and Family Housing: House Alcohol intake: never Patient Tobacco Use Status: Never used Tobacco Smoked in Last 30 Days: No Use of substances other than those prescribed or required for medical reasons: No Advance Directives: No Advance Directives Information Provided: No Patient : No Current occupational status: employed Current occupation: [employer] Sexual orientation: Straight/Heterosexual Gender identity: Female Physical Exam ED Vital Signs: Vital Signs - 24 hr 07/26/25 07:59 07/26/25 11:18 Temperature 97.6 F 97.6 F Pulse Rate 84 84 Respiratory Rate 16 16 Blood Pressure 126/77 126/77 Pulse Oximetry 100 100 Oxygen Delivery Method Room Air Room Air BMI result Body Mass Index 31.1 Const General: cooperative, healthy appearing, comfortable, no acute distress, well developed, alert, awake and Physically active Orientation/consciousness: patient oriented x3 HENMT Head: Yes normal to inspection, Yes No palpable skull fracture present, Yes normocephalic and Yes atraumatic Eyes General: appearance normal, both eyes and all related structures Neck Neck: Yes normal visual inspection, Yes full ROM, Yes no lymphadenopathy, Yes no meningeal signs, Yes trachea midline, Yes supple, No anterior neck swelling and No tender Chest Chest palpation & inspection: normal inspection of the chest and normal palpation of entire chest wall Resp Effort & Inspection: normal respiratory effort and able to speak in complete sentences Auscultation: clear to auscultation bilaterally Cardio Jugular venous distension: no JVD Heart sounds: S1 normal heart sound present and S2 normal heart sound present GI Inspection: Yes normal to inspection Palpation (GI): Soft to palpation, not firm, nontender, no guarding and not rigid General: Yes no CVA tenderness Back/Spine/Pelvis Back: no CVA tenderness and back tenderness (lumbar spine tenderness) Skin General skin exam: no rashes or lesions noted, elasticity normal and turgor normal Neuro General: patient oriented x3, gait normal, tone normal, moves all extremities, Normal light touch and pain sensation, no meningeal signs, no focal motor deficits, CN's II-XI intact bilaterally and normal sensation to monofilament Extrem General: Yes normal to inspection, Yes full ROM and Yes capillary refill normal Psych Appearance: grossly normal, well kempt and not disheveled Medications Administered Discontinued Medications Generic Name Dose Route Start Last Admin Trade Name Freq PRN Reason Stop Dose Admin Acetaminophen 975 mg 07/26/25 10:34 07/26/25 11:19 Acetaminophen 325 Mg Tablet PO 07/26/25 10:35 Not Given ONCE ONE Ketorolac Tromethamine 30 mg 07/26/25 09:48 07/26/25 10:17 Ketorolac Tromethamine 30 Mg/Ml Vial IM 07/26/25 09:49 Not Given ONCE ONE Medical Decision Making Medical Decision Making MDM Narrative: 49-year-old female presents to the ED for 4 low back by flank pain radiating down groin area states you had increased urinary frequency. Patient denies any abdominal pain nausea vomiting, vaginal discharge, vaginal bleeding, urinary/bowel incompetence, IV drug use, hematuria. Patient denies any recent trauma. Patient had abdominal CT scan on the 20 of July which showed no acute findings. No kidney stones or signs of pyelonephritis. ED scan showed degenerative disc changes at L5-S1. Patient has also hand who ultrasounds 1 in May and in March that was negative for signs of ovarian cyst, ovarian rupture, or tubo-ovarian abscess. Labs ordered Toradol ordered. 10;43pm: UA negative for urinary tract infection. was discussed with patient presently no indication for repeat imaging such as ultrasound or CAT scan. not suspecting any abdominal etiology. Patient has no abdominal tenderness First patient states pain is better and does not want any pain medication. Secondary labs and UA does not show any possible new urgent medical etiology such as pancreatitis, pyelonephritis, UTI, kidney stones, cauda equinus syndrome, epidural abscess, or appendicitis. Recent CAT scan on the 20 of July came back normal. ultrasound May came back normal. Not suspecting ovarian rupture or tubo-ovarian abscess. Once again patient has only had lumbar spine tenderness on palpation. Bilateral lower extremities negative for swelling, pitting edema, calf pain, erythema, deformity, crepitus or paralysis. Patient given copies for follow-up. Patient has increased urinary frequency without dysuria vaginal discharge vaginal bleeding. patient informed she was given information for Urology for follow-up outpatient. Differential Diagnosis Differential Diagnoses: The differential diagnosis associated with the presentation includes Admission/Observation Consideration of admission/observation: Escalation of care including admission/observation considered Lab Data MDM Lab Attestation statement: I reviewed the patient's lab results. 07/26/25 08:43 07/26/25 08:43 Labs: Lab Results 07/26/25 07/26/25 Range/Units 08:43 10:03 WBC 6.2 (4.8-10.8) X10*3/uL RBC 4.07 L (4.20-5.50) X10*6/uL Hgb 12.3 (12.0-16.0) g/dl Hct 34.8 L (37.0-47.0) % MCV 85.5 (80.0-98.0) fL MCH 30.2 (27.0-33.0) pg MCHC 35.3 H (31.0-35.0) g/dl RDW 12.2 (11.0-16.0) % Plt Count 246 (160-400) X10*3/uL MPV 9.0 L (9.4-12.3) fL Immature Gran % (Auto) 0.2 (0.0-0.4) % Neut % (Auto) 50.3 (45-73) % Lymph % (Auto) 44.2 H (20-40) % [place] % (Auto) 4.7 (2-11) % Eos % (Auto) 0.3 (0-4) % Baso % (Auto) 0.3 (0-2) % Lymph # (Auto) 2.7 (1.2-4.9) X10*3/uL [place] # (Auto) 0.3 (0.1-1.2) X10*3/uL Eos # (Auto) 0.0 (0.0-0.4) X10*3/uL Baso # (Auto) 0.0 (0.0-0.2) X10*3/uL Abs Immat Gran (auto) 0.01 (0.00-0.03) X10*3/uL Absolute Neuts (auto) 3.1 (2.0-8.3) x10*3/uL Absolute Nucleated RBC 0.000 (0.0-0.012) X10*3/uL Nucleated RBC % (auto) 0.0 (0.0-0.2) /100WBC Sodium 142 (135-145) mmol/L Potassium 4.0 (3.3-5.1) mmol/L Chloride 105 (96-108) mmol/L Carbon Dioxide 28 (22-29) mmol/L Anion Gap 13 (12-20) BUN 15 (9-16) mg/dL Creatinine 0.66 (0.5-1.4) mg/dL Estim Creat Clear Calc 101.2 Estimated GFR > 60 Random Glucose 134 H (60-115) mg/dL Calcium 9.8 D (8.4-10.2) mg/dL Total Bilirubin 0.3 (0.0-1.0) mg/dL AST 21 (5-31) U/L ALT 17 (0-31) U/L Alkaline Phosphatase 63 (39-117) U/L Total Protein 7.8 (6.5-8.0) g/dL Albumin 4.7 (3.5-5.0) g/dL Lipase 26 (8-78) U/L Beta HCG, Quant < 2 mIU/mL Urine Color Yellow Urine Appearance Clear Urine pH 5.5 (5.0-9.0) Ur Specific [place] >= 1.030 H (1.005-1.025) Urine Protein Negative (Neg-Trace) mg/dL Urine Glucose (UA) Negative (Negative) mg/dL Urine Ketones Trace (Negative) mg/dL Urine Blood Negative (Negative) Urine Nitrite Negative (Negative) Ur Leukocyte Esterase Trace H (Negative) Urine RBC 0-2 (0-2) /HPF Urine WBC 0-5 (0-5) /HPF Ur Squamous Epith Cells 6-10 (0-2) /HPF Urine Bacteria Trace (None Seen) Hyaline Casts 0-2 (0-2) /LPF Urine Test NEGATIVE (NEGATIVE) Ur N gonorrhoeae DNA (PCR) NOT DETECTED (Not Detect.) Ur Chlamydia DNA (PCR) NOT DETECTED (Not Detect.) Discharge Plan Discharge Clinical Impression: Lumbar radiculopathy, Increased urinary frequency Patient Disposition: Home, Self-Care Instructions: Lumbar Radiculopathy (ED), Urinary Urgency and Frequency (DC) Additional Instructions: recommend follow-up with primary care provider. Return to the ED immediately for any abdominal pain, nausea, vomiting, dysuria, hematuria, vaginal discharge, vaginal bleeding, fever, chills, inability to walk, severe flank pain, or any other concerning symptoms. Prescriptions: New naproxen 500 mg tablet 500 mg PO BID PRN (Reason: pain) Qty: 14 0RF cyclobenzaprine 10 mg tablet 10 mg PO TID PRN (Reason: muscle spasm) Qty: 21 0RF Rx Instructions: Side effects is drowsiness. do not take at work or while driving lidocaine 4 % adhesive patch,medicated 1 patch topical DAILY PRN (Reason: pain) Qty: 15 0RF No Action trazodone 50 mg tablet 50 mg PO BEDTIME ergocalciferol (vitamin D2) 1,250 mcg (50,000 unit) capsule PO naproxen 500 mg tablet PO pravastatin 20 mg tablet PO DAILY Metamucil (sugar) Powder 1 tsp PO DAILY Qty: 1254 0RF metformin 500 mg tablet extended release 24 hr 500 mg PO DAILY polyethylene glycol 3350 [Miralax] 17 gram/dose powder 17 g PO DAILY Qty: 238 1RF sennosides [senna] 8.6 mg tablet 17.2 mg PO DAILY Qty: 180 0RF omeprazole 20 mg capsule,delayed release(DR/EC) 20 mg PO DAILY 90 Days Qty: 90 1RF Referrals: [facility] [Provider Group, Urology] - 3 days Referral Note: increased urinary frequency. Clinical Impression: Increased urinary frequency Bird Guzman NP [Primary Care Provider, Internal Medicine] - 2 days Referral Note: chronic back pain. intermittent increased urinary frequency Clinical Impression: Lumbar radiculopathy Bayron Andino MD, PhD [Physician, Neuro Spine] - 2 days Referral Note: lumbar radiculopathy back Clinical Impression: Lumbar radiculopathy Stand Alone Forms: Work/School Release Interventions: ED Discharge Assessment Last Done: 07/26/25 11:18 Discharge Date/Time: 07/26/25 11:18 Print Language: Upper Sorbian
[2025-07-26 08:47] LABS: MANUAL DIFF FLAG NO
[2025-07-26 08:50] LABS: Hematocrit 34.8 % (37.0-47.0); Hemoglobin 12.3 g/dl (12.0-16.0); Imm Gran Abs Auto 0.01 X10*3/uL (0.00-0.03); Imm Gran Pct Auto 0.2 % (0.0-0.4); Lymphocytes Absolute Auto 2.7 X10*3/uL (1.2-4.9); Mean Corpuscular HGB Conc 35.3 g/dl (31.0-35.0); Mean Corpuscular Hemoglobin 30.2 pg (27.0-33.0); Mean Corpuscular Volume 85.5 fL (80.0-98.0); NRBC Abs Auto 0.000 X10*3/uL (0.0-0.012); NRBC Pct Auto 0.0 /100WBC (0.0-0.2); Platelet Count 246 X10*3/uL (160-400); Red Blood Count 4.07 X10*6/uL (4.20-5.50); White Blood Count 6.2 X10*3/uL (4.8-10.8)
[2025-07-26 09:03] LABS: Alanine Aminotransferase 17 U/L (0-31); Albumin Level 4.7 g/dL (3.5-5.0); Alkaline Phosphatase 63 U/L (39-117); Anion Gap 13 (12-20); Aspartate Amino Transferase 21 U/L (5-31); Blood Urea Nitrogen 15 mg/dL (9-16); Calcium 9.8 mg/dL (8.4-10.2); Carbon Dioxide 28 mmol/L (22-29); Chloride 105 mmol/L (96-108); Creatinine Clr Calc Pharmacy 101.2; Estimated Glomerular Filt Rate > 60; Lipase 26 U/L (8-78); Potassium 4.0 mmol/L (3.3-5.1); Sodium 142 mmol/L (135-145); Total Protein 7.8 g/dL (6.5-8.0)
--- OUTSIDE RECORDS SUMMARY | 2025-07-26 09:29 | XMS_ITS | Patient Health Record ---
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 Role Phone KRISTIN BARRERA Unavailable [phone] Allergies No Known Allergies Reason For Referral [...] W/U Status Risk Notes Problem Pure hypercholesterolemia (040645931) Pure hypercholesterolem ia, unspecified (E78.00) Active confirmed Problem Gastroesophageal reflux disease without esophagitis (966412352) Gastroesophageal reflux disease without esophagitis (K21.9) Active confirmed Problem Type II diabetes mellitus without complication (439906537) Type 2 diabetes mellitus without complication, without long-term current use of insulin (E11.9) Active confirmed Problem Obesity (288662782) Obesity (BMI 30-39.9) (E66.9) Active confirmed Problem Obese class II (246294399492509) BMI 35.0-35.9,adult (Z68.35) Active confirmed Problem Obese class I (447227436842121) BMI 33.0-33.9,adult (Z68.33) Active confirmed Problem BMI 30+ - obesity (958076487) BMI 32.0-32.9,adult (Z68.32) Active confirmed Plan Of Treatment No Information Insurance Providers Payer Name Payer Address Payer Phone Subscriber Number Group Number Insured Name Patient Relationship to Insured Coverage Start Date Coverage End Date [facility] [address] [place] [address] [id number] Micaela Velazquez Self - patient is the insured Medications Administered Medication Instructions Date of Administration Dosage Notes MICC B12 INJECTION 10/10/2022 1 MICC B12 INJECTION 01/09/2023 1 MICC B12 INJECTION 03/13/2023 MICC B12 INJECTION 05/06/2023 Medical (General) History Medical History History ICD Code hyperlipidemia type II diabetes Surgical History Surgery Date(Month/Year) breast reconstruction C section
--- NOTE | 2025-07-26 10:17 | PC.NURSE ---
Pt refused IM Toradol, requesting PO Tylenol. Toradol charted not given in JAN. [facility] made aware.
[2025-07-26 10:19] LABS: Appearance Urine Clear; Glucose Urine UA Negative (Negative); PH 5.5 (5.0-9.0); Specific Gravity - Urine >= 1.030 (1.005-1.025); UMIC TRIGGER UACC YES; UPreg QC Valid YES
--- NOTE | 2025-07-26 11:17 | PC.NURSE ---
Pt refused PO Tylenol on d/c- states pain has subsided.
[2025-07-26 11:18] VITALS: BP 126/77; PULSE 84; RESP 16; TEMP 36.4; O2SAT 100
[2025-07-26 11:46] LABS: CT PCR Urine NOT DETECTED (Not Detect.); NG PCR Urine NOT DETECTED (Not Detect.)
== END 2025-07-26 11:18 | disposition home or self-care (01) ==
PROVIDERS: Physician Assistant; Emergency Provider Emergency Medicine; PCP Nurse Practitioner Family
DX: M54.16 Radiculopathy, lumbar region (principal); R35.0 Frequency of micturition; R10.9 Unspecified abdominal pain; M54.50 Low back pain, unspecified; E11.9 Type 2 diabetes mellitus without complications
CPT/HCPCS: 36415; 80053; 81001; 81025; 83690; 84702; 85025; 87491; 87591; 99283; 99284